=== PATIENT | female | born 1950 | race Caucasian/White ===

== ENCOUNTER 2017-09-25 15:55 | Inpatient (IN) | payer MEDICARE, OTHER ==
[~2017-09-25] VITALS: Ht 162.6 cm; Wt 141.1 kg
[~2017-09-25 15:55] MED LIST: ALBUTEROL2.5 MG/3 M INH; HYDROCHLOROTHIA25 MG PO; LASIX20 MG PO; NAPROXEN500 MG PO; NORCO 5-325 TA1 EACH PO
[2017-09-25] MEDS ORDERED: ALLOPURINOL100 MG PO (16:26)
[2017-09-25] MEDS ORDERED: AMLODIPINE BESY10 MG PO (16:28)
--- NOTE | 2017-09-25 21:09 | NUR ---
PATIENT ARRIVED VIA STRETCHER AT 2019. PATIENTS STANDING WEIGHT TAKEN AND RECORDED. PATIENTS ADMISSION COMPLETED. ORIENTED TO FLOOR AND ROOM. ALL QUESTIONS ANSWERED. NO NEEDS NOTED. CALL LIGHT IN REACH .RT IN THE ROOM.
--- NOTE | 2017-09-25 21:52 | NUR ---
NDIAYE PLACED PER ORDER. PATIENT TOLERATED WELL. PATIENT GIVEN EVENING MEDICAITONS PER ORDER. PATIENT GIVEN SANDWICH BOX. NO FURTHER NEEDS NOTED. CALL LIGHT IN REACH.
--- NOTE | 2017-09-25 22:30 | NUR ---
PATIENT ASSESSMENT COMPLETED. PATIENT IS AAOX3. TOLERATING 10L OXI MASK AT 93% O2 SAT. PATIENT BREATHING IS LABORED, SHALLOW, AND GRUNTING WHEN TALKING OR MOVING. HOB ELEVATED. LUNGS CLEAR IN UPPER LOBES BILATERALLY. DIMINISHED CRACKLES HEARD IN ZEINA LOWER LOBES. TELE #9, HEART SOUNDS REGULAR AND DISTANT. ABD SOFT, NONTENDER. NO N/V. LAST BM THIS AM. NDIAYE CATH PLACED ON ADMISSION. PATIENT INCONTINENT AT BASELINE. AWARE OF NEED TO VOID BUT UNABLE TO CONTROL HER BLADDER. REDDNESS NOTED IN BETEEN THIGHS AND UNDER PANIS. NYSTATIN ORDERED, NOT YET AVAILABLE. AREAS CLEANED WELL. PATIENT REPORTS PAIN ON HER BOTTOM, BUTTOCK IS BLUEISH IN AREA BUT BLANCHABLE. NO OPEN SKIN. BARRIER CREAM APPLIED. HIPS FLOATED ON TWO PILLOWS RELIEVES PAIN FROM PRESSURE. SKIN IS DRY AND SCALING ON ALL EXTREMITIES, WORSE ON LOWER. SOME PLAQUE NOTED ON ZEINA LOWER. SKIN GROOSLY INTACT. 2+ EDEMA NOTED IN LOWER EXTREMITIES. PATIENT IS ABLE TO MOVE HERSELF IN BED WITH SOME DIFFICULTY DUE TO SIZE. ORIENTED TO ROOM AND PLAN OF CARE. PATIENT ADMITS TO BEING NONCOMPLIANT WITH DR. MOLINA AND STATES SHE WILL LIKEY NOT FOLLOW INSTRUCTIONS FOR NEW DIAGNOSIS EITHER. SHE STATES "I JUST DON'T CARE ABOUT ANYTHING". DENIES BEING DEPRESSED. LIMITED HER INTERATION OF STAFF AND RESIDENTS AT HER ASSISTED LIVING HOME. HAS A PUPPY THAT SHE IS CONCERNED FOR WHILE SHE IS HERE. DENIES OTHER NEEDS AT THIS TIME. REGULARLY STAYS UP LATE AND WILL CALL WHEN READY TO WEAR THE CPAP.
--- NOTE | 2017-09-26 00:31 | NUR ---
PATIENT UP TO BSC. LARGE BM. PATIENT ASSISTED WITH CLEANING HERSELF. RETURNED TO BED. PARTIAL BED BATH DONE. NYSTATIN APPLIED UNDER PANIS AND BETWEEN THIGHS. BARRIER CREAM TO BUTTOCK. HIPS FLOATED ON PILLOWS. 10L OXI MASK. PATIENT AGREES TO GO TO CPAP. RT CALLED. ORAL CARE DONE WITH ASSIST. PATIENT DENIES OTHER NEEDS. CALL LIGHT IN REACH.
--- NOTE | 2017-09-26 00:36 | NUR ---
HELPED PT GET TO THE BSC AND BACK TO BED. PUT BARRIER CREAM ON. CHANGED HER BEDDING INCONTINENT OF STOOL. BEDSIDE TABLE AND CALL LIGHT WITHIN REACH.
--- NOTE | 2017-09-26 01:00 | NUR ---
RT PLACED PATIENT ON CPAP. CONTINUOUS PULSE OX IN USE. CALL LIGHT IN REACH.
--- NOTE | 2017-09-26 03:07 | NUR ---
VITALS AND I&OS DONE AND CHARTED. HELPED PT TO THE BSC AND BACK TO BED. BEDSIDE TABLE AND CALL LIGHT WITHIN REACH.
--- NOTE | 2017-09-26 03:15 | NUR ---
PATIENT RESTING IN BED. EYES CLOSED. RR 20. O2 SAT 94% ON THE CPAP. HOB ELEVATED. CALL LIGHT IN REACH.
--- NOTE | 2017-09-26 06:05 | NUR ---
VITALS AND I&OS DONE AND CHARTED. BEDSIDE TABLE AND CALL LIGHT WITHIN REACH. PT NEEDS NOTHING ELSE AT THIS TIME.
--- NOTE | 2017-09-26 06:34 | NUR ---
standing weight done and charted per request from thea reynoso. helped pt to the bsc .
--- NOTE | 2017-09-26 06:39 | NUR ---
PATIENT RESTED WELL AFTER THE MIDNIGHT HOUR. ORIENTED X4. 9L OXI-MASK WHILE AWAKE, BIPAP W/5L BLEED IN WHILE SLEEPING. CONTINUOUS PULSE OX. LUNGS ARE CLEAR IN UPPER LOBES, DIMINISHED IN BASES. NDIAYE IN PLACE, OUTPUT INCREASED AFTER IV LASIX. LARGE BM LAST NIGHT. SBA TO BSC. NYSTATIN TO PANIS & THIGHS, BARRIER CREAM TO BUTTOCKS. HIPS FLOATED ON PILLOWS TO RELIEVE PRESSURE. IV SL. STANDING WT DONE THIS AM.
--- NOTE | 2017-09-26 06:55 | EKG ---
[facility] [address] [place] [address] Signed Normal sinus rhythm Low voltage QRS Left posterior fascicular block Abnormal ECG No previous ECGs available Confirmed by SIOBHAN MORRISON MD ([id number]) on 09/26/2017 6:55:08 AM Electronically Signed By: SIOBHAN MORRISON MD 09/26/17 0655 PATIENT NAME: CALDERONBERYL Moore I Electrocardiogram DATE OF : 48 PHYSICIAN: SIOBHAN MORRISON MD REPORT #: [id number] REPORT IS CONFIDENTIAL AND NOT TO BE RELEASED WITHOUT AUTHORIZATION
--- NOTE | 2017-09-26 06:58 | NUR ---
MAG CRAMER STARTED. EDUCATION PROVIDED TO THE PATIENT. SHE VERBILIZED HER LACK OF UNDERSTANDING BUT AGREES TO TREATMENT. SHE STATES "I'M JUST SIMPLE MINDED, YOU KNOW THE MEDICAL STUFF". WILL CONTINUE TO EDUCATE. PATIENT ORDERED BREAKFAST. TOLERATING 5L OXI-MASK AT 92%, GRUNTING WITH EACH BREATH. PATIENT DENIES FEELING SOB. NO OTHER NEEDS AT THIS TIME.
--- NOTE | 2017-09-26 08:00 | NUR ---
RECEIVED REPORT AT 0700, FOUND PT IN BED AWAKE. PT HAD NO NEEDS AT THAT TIME.
--- NOTE | 2017-09-26 09:05 | NUR ---
I changed pt's bed linens while RODERICK Boyle showered pt.
--- NOTE | 2017-09-26 10:00 | NUR ---
PT IS SLEEPING AT THIS TIME.
--- NOTE | 2017-09-26 11:00 | NUR ---
PATIENT UP TO SHOWER WITH FWW STANDBY ASSIST. PATIENT HAD NO COMPLAINTS ABOUT BEING DIZZY NOR SHORT OF BREATH. PATIENT UP TO CHAIR STATES THAT SHE FEELS GOOD. WARM BLANKET GIVEN CALL BUTTON IN REACH. NO OTHER NEEDS AT THIS TIME.
--- NOTE | 2017-09-26 11:08 | NUR ---
[facility]U CALLED AT 1106 FOR 5 BEATS OF V-TACH. V/S WERE TAKEN. V/S WERE WDL OVERALL. PT DENIED ANY CHEST PAIN OR ANY OTHER DISCOMFORT. WILL CONTINUE TO MONITOR. MD MORRISON IS AWARE.
--- NOTE | 2017-09-26 11:10 | NUR ---
[facility]U called to inform us that pt had a episode of vtach, nurse Bessy and I went to pt's room. I took vitals and Bessy assessed the pt, who was resting safely in bed and stated she felt fine and had no shortness of breath or chest pain. vitals charted
--- NOTE | 2017-09-26 12:00 | NUR ---
PT IS RESTING IN BED WATCHING TV. PT HAS NO NEEDS AT THIS TIME.
--- NOTE | 2017-09-26 14:00 | NUR ---
PT AT THIS TIME IS STILL NAUSEADED. MD MORRISON TO WRITE ANOTHER ORDER FOR ANT-EMETIC. SUPP WAS GIVEN. PT IS REFUSING TO EAT AT THIS TIME WHICH IS OK WITH ME SINCE PT CAN'T REMEMBER THE LAST TIME SHE PASSED FLATUS. ABD SOUNDS ARE HYPOACTIVE AT THIS TIME. WILL CONTINUE TO MONITOR.
--- NOTE | 2017-09-26 14:00 | NUR ---
PT LOST BOTH IV'S AND NEW ACCESS IS NEEDED. PT OVERALL IS FEELING FINE STATED BY HER. NO NEW ISSUES NOTED SO FAR.
--- NOTE | 2017-09-26 14:31 | NUR ---
PATIENT SITTING UP IN BEDSIDE RECLINER. PATIENT CALLED, IV IN RIGHT ARM APPEARED TO BE BUBBLING UNDER THE SKIN, RN NOTIFIED, RN IN ROOM. CALL LIGHT IN REACH. NO OTHER NEEDS AT THIS TIME.
[2017-09-26] MEDS ORDERED: CALCIUM600 MG PO (15:01)
[2017-09-26] MEDS ORDERED: FERROUS FUMARA324 MG PO (15:04)
[2017-09-26] MEDS ORDERED: VITAMIN B-12100 MCG PO (15:05)
[2017-09-26] MEDS ORDERED: VITAMIN D1000 UNIT PO (15:05)
[2017-09-26] MEDS ORDERED: NORCO 5-325 TA1 EACH PO (15:06)
[2017-09-26] MEDS ORDERED: NYSTOP60 GM TOP (15:07)
--- NOTE | 2017-09-26 15:56 | NUR ---
PT AT THIS TIME IS UP IN CHAIR WATCHING TV. PT HAS NO NEEDS AT THIS TIME.
--- NOTE | 2017-09-26 17:15 | NUR ---
Certified Heart Failure Nurse Notes: Diagnosis: acute on chronic diastolic heart failure BNP 47. Cr1.13. Echocardiogram pending. PCP: Dr. Orellana Admit Wt.: 150.14 kg Social support system:Son and daughter live in [place]. Patient wishes to move to that area. Patient lives at [facility] where medications are managed. Weight monitoring: Scale available for use at care facility Identifies how to weigh daily/ identifies when to notify PCP with teach back. Symptom management: Specific written recommendations to follow-up for ongoing management, and to address changes in weight or symptoms Diet: Has fresh fruit in her home. Does eat fast food but not pizza. Enjoys potatoe chips. Instructed on reason to cut back on foods with hidden salt and strategies identified. Usual physical activity:Limited. Educated on the benefits of physical activity. She verbalized need for pain pills in order to move, assisted risks and little bit of narcotics reinforced. Medication routine: Per facility Has been counseled on minimizing/avoiding use of NSAIDs Advanced directive: Pt is a DNR and she believes she has filled out an Advanced Directive in the past. Recommended prior to dischareg: Documented ambulation oxygen saturations prior to discharge Absence of orthostatic hypotension. Ensure follow up appointment within 7 days of discharge. Barriers to self-care include: Immobility and activity avoidance. Follow-up plans: Will call patient post discharge to reinforce self- care needs.
--- NOTE | 2017-09-26 17:52 | NUR ---
pt is sitting up in chair with feet elevated and call light in reach. pt asked for grape juice
--- NOTE | 2017-09-26 18:00 | NUR ---
PT OVERALL HAD AN UNEVENTFUL DAY. V/S OVERALL WERE WDL, PT HAS LOST SOME WEIGHT SINCE THIS MORNING. BILATERAL LEG EDEMA IS UNCHANGED. ALL LOBES ARE CLEAR BUT VERY DIMINISHED. PT IS STILL ON 9L OXY MASK OR 11L O2 ON NS WHEN EATING. NO NEW CONCERNS NOTED DURING THIS SHIFT.
--- NOTE | 2017-09-26 19:45 | NUR ---
BACK TO BED FROM CHAIR, TOLERATED WELL. O2 9L OXYMASK, NO C/O PAIN.
--- NOTE | 2017-09-26 21:37 | NUR ---
VITALS AND I&OS DONE AND CHARTED. GRAPE JUICE GIVEN PER REQUEST OF PT. BEDSIDE TABLE AND CALL LIGHT IN REACH.
--- NOTE | 2017-09-26 22:26 | NUR ---
COOP WITH ASSESSMENT, NO C/O PAIN
--- NOTE | 2017-09-27 00:20 | NUR ---
PATIENT RESTING QUIETLY SUPINE ON CPAP AT THIS TIME. RESPIRATION WNL FOR PATIENT ON CPAP. PATIENT'S EYES CLOSED AND CALL LIGHT IN REACH.
--- NOTE | 2017-09-27 02:10 | NUR ---
PATIENT CONTINUES RESTING QUIETLY ON CPAP WITH EYES CLOSED. RESPIRATIONS WNL FOR PATIENT ON CPAP. PATIENT ON HER RIGHT SIDE. CALL LIGHT IS IN REACH.
--- NOTE | 2017-09-27 03:46 | NUR ---
PATIENT CALLED AND REQUESTED TO COME OFF HER CPAP MACHINE AND BE PLACED BACK ON HER OXYMASK AT 9L/MIN. THIS WAS DONE AND RT JOHNNIE WAS INFORMED. PATIENT O2 SAT ON CONTINOUS PULSE OX 91%.
--- NOTE | 2017-09-27 06:32 | NUR ---
VITALS AND I&OS DONE AND CHARTED. D.W. DONE AND CHARTED WELL. CALL LIGHT WITHIN REACH.
--- NOTE | 2017-09-27 06:50 | NUR ---
PATIENT HAS BEEN RESTING QUIETLY MOST OF THE SHIFT SINCE I RECEIVED REPORT AT 0000 FROM KARY SPAIN. PATIENT USED HER CPAP UNTIL ALMOST 4AM WHEN SHE WENT BACK ONTO HER 9L/OXYMASK. PATIENT REMAINS ON CONTINOUS PULSE OX SATING 90-91%. PATIENT HAS HAD NO C/O PAIN. NDIAYE CATHETER DRAINING WELL. REPORT GIVEN TO KARY CHOUDHURY. PATIENT'S CALL LIGHT IS IN REACH.
--- NOTE | 2017-09-27 08:00 | NUR ---
RECEIVED REPORT AT 0700, FOUND PT IN BED SLEEPING. PT WAS ON C-PAP.
--- NOTE | 2017-09-27 09:44 | NUR ---
PATIENT RESTING IN BED, RN IN ROOM. RN STATES SHE TOOK AND RECORDED VITALS. CALL LIGHT IN REACH. NO OTHER NEEDS AT THIS TIME.
--- NOTE | 2017-09-27 10:00 | NUR ---
PT IS BACK ON OXY MASK, I HAD TO LEAVE HER ON 11L O2 VS. 9L O2 DONE YESTERDAY. PT O2 SATS ARE 88-90%. PT HAS ALSO BEEN RE-POSITIONED TO AID IN BREATHING. ALL LOBES ARE VERY DIMINISHED BUT CLEAR. OTHERWISE THERE HAS BEEN NO CHANGE IS CONDITION FOR THIS PT.
--- NOTE | 2017-09-27 10:59 | NUR ---
PATIENT LAYING IN BED WITH BIPAP ON. I BROUGHT HER A LIST OF LOW-SODIUM SNACKS. I SHOWED HER A PACKAGE OF HINT OF SALT WHEAT THINS AND HINT OF SALT TRISCUITS. SHE DOESN'T LIKE TRISCUITS. DOES LIKE WHEAT THINS BUT SHE CAN'T EAT THEM WITHOUT HER TEETH. I RECOMMENDED THESE INSTEAD OF CHIPS OR OTHER SALTY SNACKS. DIDN'T TALK MORE BECAUSE OF THE BIPAP. WILL CONTINUE TO FOLLOW.
--- NOTE | 2017-09-27 12:00 | NUR ---
PT AT THIS TIME IS BACK ON BI-PAP AT THIS TIME. PT WAS UNABLE TO MAINTAIN O2 SATS >92% ON 9L OXY MASK. MD MORRISON IS AWARE. WILL CONTINUE TO MONITOR.
--- NOTE | 2017-09-27 13:12 | NUR ---
SPOKE WITH PATIENT REGARDING DISCHARGE. DISCUSSED SHE MIGHT NEED REHAB TIME BEFORE RETURNING TO [facility]. SHE STATES SHE DOESN'T WANT TO GO ANYWHERE BUT HOME BECAUSE SHE IS WORRIED ABOUT HER DOG WHO IS 13 AND BLIND. I TOLD HER I WILL CALL FACILITY AND CHECK ON HER DOG. I CALLED [facility] [phone] AND SPOKE WITH NEYDA. SHE STATES THE STAFF IS TAKING CARE OF HER DOG AND THAT SHE IS COMING TO THE HOSPITAL IN ABOUT AN HOUR TO BRING PATIENTS CELL PHONE. I ASKED IF THERE WAS A WAY TO BRING HER DOG TO VISIT AND SHE WAS GLAD TO DO THAT. I INFORMED THE STAFF. UPDATED THE PATIENT AND SHE WAS VERY HAPPY.
--- NOTE | 2017-09-27 13:50 | NUR ---
PATIENT HAD A VISIT BY YANCY CRAFT AND WAS ABLE TO SEE AND PET HER DOG. SHE WAS VERY EMOTIONAL BUT SO GLAD TO SEE HER DOG WAS DOING OK.
--- NOTE | 2017-09-27 13:56 | NUR ---
PATIENT'S NDIAYE CLASP CAME LOOSE CAUSING NDIAYE TO LEAK ONTO FLOOR, MARKED UNMEASURED VOID.
--- NOTE | 2017-09-27 14:00 | NUR ---
PT WAS ABLE TO SEE HER DOG. THIS MADE HER VERY HAPPY. RT AT THIS TIME IS SWITCHING PT OVER TO VAPOTHERM. ALL LOBES ARE STILL VERY DIMM BUT CLEAR. NO NEW CONCERNS AT THIS TIME. OTHERWISE NO CHANGES NOTED SO FAR.
--- NOTE | 2017-09-27 15:44 | NUR ---
PATIENT RESTING IN BED, CALL LIGHT IN REACH. NO OTHER NEEDS AT THIS TIME.
--- NOTE | 2017-09-27 15:59 | NUR ---
CLINICALS FAXED TO [facility] FOR POSSIBLE REHAB STAY AT DISCHARGE. SPOKE WITH DANIELE PUMP AND STILL OPERATOR. FAX CONFIRMATION RECEIVED.
--- NOTE | 2017-09-27 16:00 | NUR ---
PT IS RESTING IN BE AT THIS TIME. PT HAS NO NEEDS. PT SEEMS IN GOOD SPIRITS SINCE HER DOG VISITED HER.
--- NOTE | 2017-09-27 17:15 | NUR ---
AT START OF SHIFT PT WAS UNABLE TO MAINTAIN O2 SATS >90% ON OXY MASK. PT WAS PUT ON BI-PAP AND THEN SWITCHED OVER TO VAPOTHERM AT 35L 50%. PT IS DOING BETTER AT THIS TIME. NEW IV SITE WAS STARTED. URINE OUTPUT IS ADEQUATE. V/S WERE WDL. ALL LOBES HAVE REMIANED VERY DIMINISHED. NO NEW CONCERNS NOTED AT THIS TIME.
--- NOTE | 2017-09-27 18:24 | NUR ---
PATIENT SITTING UP IN BEDSIDE RECLINER, CALL LIGHT IN REACH, ORAL CARE PERFORMED. NO OTHER NEEDS AT THIS TIME.
--- NOTE | 2017-09-27 18:26 | NUR ---
PATIENT RESTING IN BED, CALL LIGHT IN REACH. RN NOTIFIED OF LOW OXYGEN LEVELS. NO OTHER NEEDS AT THIS TIME.
--- NOTE | 2017-09-27 19:00 | NUR ---
PATIENT RESTING IN BED WATCHING TV. GETTING REPORT FROM KARY CHOUDHURY. PATIENT SATING 91% ON VAPOTHERM CANNULA AND HAS NO CURRENT NEEDS AT THIS TIME. CALL LIGHT IN REACH.
--- NOTE | 2017-09-27 21:00 | NUR ---
PATIENT IN BED WATCHING TV AND REMAINS ON 35L/VAPOTHERM AT 50% SATING 89-91%. PATIENT'S LUNGS SOUND CLEAR, BUT DEMINISHED. NYSTATIN POWDER APPLIED TO GROIN AREA, UNDER PANIS, AND BENEATH BREASTS. BOWEL TONES ARE ACTIVE. PATIENT TAKING PO FLUIDS WELL. ALL PM MEDS GIVEN. NDIAYE DRAINING CLEAR YELLOW URINE. CALL LIGHT IN REACH.
--- NOTE | 2017-09-27 21:12 | NUR ---
charge nurse rounding note: In bed, Vaportem in place 50% O2, tolerating well. No c/o pain or sob. fluids and call light within hands reach
--- NOTE | 2017-09-27 23:10 | NUR ---
PATIENT RESTING NOW, EYES CLOSED, AND PATIENT ON BIPAP RATE OF 15 AND FIO2 OF 40%. PATIENT'S CALL LIGHT IN REACH.
--- NOTE | 2017-09-28 01:40 | NUR ---
PATIENT'S O2 SATS DROPPING TO 84%. PATIENT PULLED UP IN BED, REPOSITION AND BIPAP READJUSTED. SATS RETURNED TO 91-92%. PATIENT IS COMFORTABLE AT THIS TIME. CALL LIGHT IN REACH.
--- NOTE | 2017-09-28 03:54 | NUR ---
PATIENT'S O2 SAT DECREASING TO 86%. RT CALLED AND FIO2 INCREASED TO 50%. PATIENT RESTING QUIETLY, EYES CLOSED, BIPAP RATE STILL 15 AND O2 SATS NOW 93%. CALL LIGHT IN REACH.
--- NOTE | 2017-09-28 06:44 | NUR ---
PATIENT HAS RESTED BETTER TONIGHT THAN LAST NIGHT. PATIENT REMAINS ON BIPAP 15 ON 50% FIO2 WITH SATS AT 89-93%. LUNGS STILL CLEAR BUT VERY DEMINISHED. PATIENT HAS WANTED TO KEEP RESTING SO AM WEIGHT HAS NOT BEEN TAKEN YET. IV IS STILL PATENT AND FLUSHES WELL. NDIAYE DRAINING CLEAR YELLOW URINE. CALL LIGHT IS IN REACH.
--- NOTE | 2017-09-28 07:20 | NUR ---
REPORT RC'D FROM IMPORTER EXPORTER NURSE. PT RESTING IN BED AND BEING ASSESSED BY RT AT THIS TIME. NO ACUTE DISTRESS NOTED. PT REQUSTING JUICE, GIVEN.
--- NOTE | 2017-09-28 08:30 | NUR ---
ERIN LIGHT ANSWERED. PT REQUESTING TO MOVE TO CHAIR. PT SBA WITH FWW TO CHIAR. CONTINUOUS PULSE OX, 93%, VAPOTHERM AT 35 LPM AND 50% O2, RR 22/MIN, EXPIRATORY WHEEZE NOTED IN BUL AND CRACKLES INI BLL. OCCANSIONAL NON PRODUCTIVE COUGH NOTED. DENIES PAIN. DENIES NAUSEA. NDIAYE CATH IN PLACE AND DRAINING YELLOW URINE. PT ON TELE #9 AND IN SINUS RHYTHM. GENERALZIED EDEMA NOTED IN UPPER AND LOWER EXTREMITIES. PT POSITIONED FOR COMFORT. CALL LIGHT WITHIN REACH. BREAKFAST AT BEDSIDE.
--- NOTE | 2017-09-28 08:40 | NUR ---
PT SBA WITH FWW TO BSC. MEDIUM BOWEL MOVEMENT. PT ASSISTED WITH MINDA CARE. PT ASSISTED BACK TO CHAIR. CALL LIGHT WITHIN REACH. DENIES OTHER NEEDS AT THIS TIME.
--- NOTE | 2017-09-28 09:31 | NUR ---
pt is sitting up in chair with feet elevated and call light in reach. pt did not need anything at the moment
--- NOTE | 2017-09-28 11:46 | NUR ---
PT RESTING IN CHAIR AND EATING LUNCH. PT CURRENTLY ON 8L NC AND SPO2 93% CURRENTLY. NO ACUTE CHANGES. PT REQUESTING JUICE, CURRENT 1500 ML FLUID RESTRICTION. PT OFFERED WATER, DECLINED, PT STATES "I DON'T DRINK WATER AND I DON'T LIKE IT." EDUCATION PROVIDED ON WATER OVER JUICE, PT VERBALIZED UNDERSTANDING BUT DECLINES WATER. 100 ML JUICE GIVEN. DENIES OTHER NEEDS AT THIS TIME. CALL LIGHT WITHIN REACH.
--- NOTE | 2017-09-28 12:00 | NUR ---
PT ON 8L OXYMASK, O2 SATS 96%. PT PLACED ON 6L NC FOR LUNCH, CONTINUOUS PULSE OX IN PLACE. PT SITTING IN CHAIR FOR LUNCH. PT DENIES OTHER NEEDS AT THIS TIME.
--- NOTE | 2017-09-28 13:20 | NUR ---
PT RESTING IN CHAIR. NO ACUTE CHANGES. CALL LIGHT WITHIN REACH.
--- NOTE | 2017-09-28 13:56 | NUR ---
assisted patient back to bed. belongings within reach. call light within reach. tolerated well SBA with FWW.
--- NOTE | 2017-09-28 14:00 | NUR ---
PT RESTING IN BED WITH 6L OXYMASK. PT REPOSITIONED FOR COMFORT. 40 MG IV LASIX GIVEN, URINE IN CONCENTRATED. PT OFFERED WATER FOR 300 ML FREE WATER, REFUSED, EDUCATION PROVIDED, PT DECLINED AND REQUESTED GRAPE JUICE. NO ACUTE CHANGES. CALL LIGHT WITHIN REACH.
--- NOTE | 2017-09-28 14:33 | NUR ---
pt is resting in bed with call light in reach. pt asked for more grape juice
--- NOTE | 2017-09-28 16:40 | NUR ---
CALL LIGHT ANSWERED. PT REQUESTING TO HAVE OXYMASK SWITCH TO NC FOR DINNER. NC AT 6L APPLIED, SPO2 92% AT THIS TIME. DENIES OTHER NEEDS. CALL LIGHT WITHIN REACH.
--- NOTE | 2017-09-28 18:14 | NUR ---
PT WEANED FROM VEPOTHERM TO 6L NC/OXYMASK, TOLERATING WELL, OXYGEN SATURATION GREATER THAN 90%, CONTINUOUS PULSE OX. LUNGS CLEAR IN BUL WITH CRACKLES TO BLL. A&O X3 AND RESPONDING APPROPRIATELY. PT ON REGULAR DIET WITH 1500 ML FLUID RESTRICTION. PT REFUSES TO DRINK WATER, GRAPE JUICE GIVEN. NDIAYE CATH IN PLACE AND DRAINING CONCENTRATED URINE. SHOWER GIVEN, MINDA CARE COMPLETED, NYSTATIN POWER APPLIED. REDNESS TO BILATERAL INFRAMAMMARY. REDNESS TO INNER THIGHS/GROIN IMPROVING. PT UP IN CHAIR FOR MEALS. 1 SB WITH FWW. TELE DC'D.
--- NOTE | 2017-09-28 19:38 | NUR ---
PATIENT RESTING QUIETLY EYES CLOSED, RESPIRATIONS EVEN AND REGULAR, O2 SAT=91% ON OXY MASK OF 6L/MIN. REPORT RECEIVED FROM KARY RM. PATIENT'S CALL LIGHT IS IN REACH.
--- NOTE | 2017-09-28 22:40 | NUR ---
PATIENT IS BACK IN BED AND AND READY FOR HER BIPAP TO GO ON. RT CALLED AND IS COMING TO FIT THE MASK TO PATIENT.
--- NOTE | 2017-09-28 23:27 | NUR ---
PATIENT RESTING QUIETLY ON BIPAP MACHINE ON HER RIGHT SIDE. SATS=91-92%. PATIENT'S EYES ARE CLOSED AND PULSE IS 90 ON PULSE OX. CALL LIGHT IN REACH.
--- NOTE | 2017-09-29 00:53 | NUR ---
PATIENT RESTING QUIETLY SUPINE, EYES CLOSED, RESPIRATIONS EVEN AND REGULAR ON BIPAP, SATS 90-91% WITH A HEART RATE OF 86. PATIENT'S CALL LIGHT IS IN REACH.
--- NOTE | 2017-09-29 01:30 | NUR ---
PATIENT CONTINUES TO REST QUIETLY ON HER BIPAP WITH SATS OF 90-91%. RESPIRATIONS REGUALR AND EVEN, EYES CLOSED, CALL LIGHT IN REACH.
--- NOTE | 2017-09-29 02:42 | NUR ---
PATIENT HAS COMPLETED HER ORAL FLUID INTAKE FOR THE DAY AND WILL RESTART HER 24HRS AT 6AM. PATIENT IS RESTING QUIETLY SUPINE IN HER BED. PATIENT'S EYES ARE CLOSED AND RESPIRATIONS ARE EVEN AND REGULAR ON BIBAP AND SATS=89-90% WITH A PULSE OF 90. PATIENT'S CALL LIGHT IS WITHIN REACH.
--- NOTE | 2017-09-29 03:04 | NUR ---
PATIENT JUST CALLED FOR A WARM BLANKET WHICH WAS GIVEN TO HER BY ELOY. PATIENT'S LUNGS REMAIN CLEAR, BUT VERY DEMINISHED. BOWEL TONES ARE ACTIVE. PATIENT HAS NO C/O PAIN AT THIS TIME AND WISHING TO GO BACK TO SLEEP. PATIENT REMAINS ON BIPAP AND HER CALL LIGHT IS IN REACH. CURRENT O2 SAT WHILE AWAKE IS 94%.
--- NOTE | 2017-09-29 03:18 | NUR ---
PATIENT ASKED FOR WARM BLANKET. GIVEN.
--- NOTE | 2017-09-29 05:00 | NUR ---
PATIENT RESTING QUIETLY ON HER RIGHT SIDE, EYES CLOSED, RESPIRATIONS EVEN AND REGULAR, BIPAP IN PLACE AT 40%, O2 SATS 89-91% WITH A HEART RATE OF 90. PATIENT'S CALL LIGHT IS IN REACH.
--- NOTE | 2017-09-29 06:10 | NUR ---
PATIENT HAS SLEPT WELL MOST OF THE NIGHT THE BIPAP MACHINE, BUT IS NOW UP WATCHING TV BACK ON HER 6L/OXYMASK SATING 94%. PATIENT'S LUNGS STILL REMAIN EXTREMELY DEMINISHED THROUGHOUT HER LUNG NARVAEZ, BUT CLEAR. PATIENT HAS NO C/O PAIN AT THIS TIME, BUT DID GET TYLENOL BEFORE BED FOR ARTHRITIS PAIN, WHICH HELPED. IV REMAINS PATENT AND FLUSHES WELL. BOWEL TONES ACTIVE AND PATIENT PASSING GAS. AM LABS JUST DRAWN AND NDIAYE EMPTIED. PATIENT STILL HAVING QUANTITY SUFFICIENT URINE OUTPUT. PATIENT IS CURRENTLY ON THE BEDSIDE COMMODE TRYING TO HAVE A BM. CALL LIGHT IN REACH. PATIENT READY TO START HER 1500ML FLUID RESTRICTION AGAIN FOR THE DAY.
--- NOTE | 2017-09-29 08:00 | NUR ---
PATIENT SITTING UP IN BED, RESPIRATORY THERAPY IN ROOM. PATIENT CALL LIGHT IN REACH. NO OTHER NEEDS AT THIS TIME.
--- NOTE | 2017-09-29 09:01 | NUR ---
PT IN BED SLEEPING, AWOKE EASILY TO VOICE. PT ALERT AND ORIENTED. DENIES PAIN, NAUSEA, SOB, OR DIFFICULTY BREATHING. DENIES HAVING ANY QUESTIONS OR CONCERNS AT THIS TIME. NDIAYE PATENT PUTTING OUT CLEAR YELLOW URINE. PT SATTING 90% ON 6LNC. ATE 100% OF BREAKFAST. CALL LIGHT WITHIN REACH.
--- NOTE | 2017-09-29 10:17 | NUR ---
PATIENTS VITAL SIGNS WERE ALREADY DONE BY NURSE, I PUT IN INTAKE AND OUTPUT, MADE BED SHE ASKED ABOUT NOT HAVING HER O2 SENSOR ON HER FOREHEAD ANYMORE WILL TALK TO NURSE ABOUT IT.
--- NOTE | 2017-09-29 11:20 | NUR ---
PT 1PA TO RECLINER TO EAT LUNCH. SENTHIL ANDINO. CALL LIGHT WITHIN REACH.
--- NOTE | 2017-09-29 13:15 | NUR ---
PT REQUESTED TO GET BACK TO BED FROM CHAIR. SBA WITH WALKER. PT WEANED TO 4L NC, SATTING 92%. PT DENIES FURTHER NEEDS OR CONCERNS. CALL LIGHT WITHIN REACH.
--- NOTE | 2017-09-29 15:00 | NUR ---
PT SBA WITH WALKER TO RESTROOM. HAD BM. AMB BACK TO BED. PT MAINTAINING SATS 90-92% ON 4LNC. CALL LIGHT WITHIN REACH.
--- NOTE | 2017-09-29 19:10 | NUR ---
REC REPORT FROM DAY RN. PT ON BED WATCHING TV. NO NEEDS AT THIS TIME.
--- NOTE | 2017-09-29 21:40 | NUR ---
PT ASSESSMENT COMPLETED, ASSISTED UP TO THE BATHROOM, HAD A SMALL BM, TOLERATED GOOD, SLOW AMBULATION WITH FWW. ASSISTED BACK TO BED, PT PUT HER OWN FEET INTO BED, O2 AT 4L SAT IN LOW 90'S. CLEANED UNDER PANNUS, AND BREASTS. PT LIVES AT [facility] AND STATES SHE WILL HAVE STAFF HELP HER CLEAN HER FOLDS, AND PUT THE "POWDER" SHE HAS AT HOME. DID NOT WANT THE BIPAP ON YET, SAID SHE WOULD CALL. HAS HAD ALL THE FLUIDS SHE CAN FOR THE NIGHT, IS AWARE OF THIS. CALL LIGHT WITHIN REACH.
--- NOTE | 2017-09-29 23:00 | NUR ---
TAKING OVER CARE OF PT AT THIS TIME. PT RESTING, EYES CLOSED,
--- NOTE | 2017-09-30 01:32 | NUR ---
RESTING, BIPAP IN PLACE, CONT PULSE OX IN PLACE, NO S/SX DISTRESS, CALL LIGHT AND FLUIDS WITHIN HANDS REACH
--- NOTE | 2017-09-30 03:12 | NUR ---
Warm blanket given on requests, bipap in place, no other c/o pain or requests
--- NOTE | 2017-09-30 06:31 | NUR ---
PT CONTINUES ON 1500CC FLUID RESTRICTION. DAILY WEIGHT, DECLINES TO BE WEIGHT AT THIS TIME. "I WANT TO CONTINUE SLEEPING, YOMI NAIR STATED" PT HAS USED CPAP MACHINE ALL LIGHT, HAS SLEPT ALL NIGHT. TURNS SELF IN BED, GENERALIZED EDEMA IMPROVING. F/C PATENT, DRAINING QS DARK YELLOW URINE, NO C/O PAIN, SOB OR ANY REQUESTS
--- NOTE | 2017-09-30 08:45 | NUR ---
PT AWAKE IN ROOM SITTING UP AT EDGE OF BED EATING BREAKFAST. DENIES PAIN, NAUSEA, OR DIFFICULTY BREATHING. SATTING 91% ON 4LNC. ALERT AND ORIENTED. IV FLUSHES WELL. CALL LIGHT WITHIN REACH.
--- NOTE | 2017-09-30 08:45 | NUR ---
SPOKE WITH PATIENT IN ROOM. SHE KNOWS WE ARE PLANNING SNF AT DISCHARGE. SHE IS HOPING TO RETURN TO [facility] INSTEAD. SHE IS WORRIED ABOUT HER DOG. EXPLAINED THAT THE STAFF AT [facility] STATED THEY CAN BRING THE DOG TO VISIT HER IF SHE GOES TO REHAB. EXPLAINED ALSO THAT MEDICALLY SHE MAY NEED MORE THAN THEY CAN PROVIDE RIGHT AT DISCHARGE AND THAT WE WILL CONTACT [facility] TO SEE IF THEY WILL CONSIDER HER RETURNING AT DISCHARGE. SHE STATED UNDERSTANDING.
--- NOTE | 2017-09-30 10:05 | NUR ---
PT WALKED A SHORT DISTANCE IN HALLWAY WITH P.T. USING FWW AND 1 PERSON MINIMAL ASSIST. PT SHORT OF BREATH WITH EXERTION, SATS DROPPED TO 83% ON 3L WHILE AMB PER NURIS P.T. PT AMB BACK TO ROOM AND IS SITTING IN RECLINER. CALL LIGHT WITHIN REACH.
--- NOTE | 2017-09-30 10:20 | NUR ---
SPOKE WITH MERRILL PRESTON FROM [facility]. UPDATED HER ON PATIENTS PROGRESS AND POSSIBLE DISCHARGE TOMORROW. EXPLAINED PATIENT WOULD LIKE TO RETURN STRAIGHT TO THEIR FACILITY. SHE STATES SHE DOES NOT FEEL PATIENT IS READY OR BASELINE YET FOR THEM. SHE FEELS SHE NEEDS CLOSER MONITORING THAN THEY CAN PROVIDE AT THIS TIME. SHE STATES THEY WILL CONTINUE TO WATCH HER DOG AND ALSO BRING IT TO VISIT HER IN REHAB IF SHE DOES THIS AT [facility].
--- NOTE | 2017-09-30 11:00 | NUR ---
CARE CONFERENCE DR HAYWARD MYSELF PATIENT WAS SEEN IN REGARDS TO PROGRESS AND DISCHARGE PLAN. IT WAS DISCUSSED THAT SHE WILL NEED TO GO TO REHAB FOR CLOSER MONITORING AND STRENGTHENING ACCORDING TO RN FROM HER FACILITY YANCY MAK. THEY WERE UPDATED AND FEEL SHE IS NOT BASELINE TO RETURN YET. PATIENT ONLY WORRY WAS HER DOG. I ASSURRED HER THE FACILITY WILL CONTINUE TO LOOK AFTER HER DOG AND BRING IT TO VISIT HER AT REHAB. QUESTIONS ANSWERED.
--- NOTE | 2017-09-30 13:05 | NUR ---
PT LYING IN BED. STATES SHE ATE ALL OF HER LUNCH AND DOESNT HAVE ANY NEEDS OR CONCERNS AT THIS TIME. CALL LIGHT WITHIN REACH.
--- NOTE | 2017-09-30 15:30 | NUR ---
PT RECIEVED FULL SHOWER BY PAULINO VAUGHN. SENTHIL LAMAS'Brenden AT THIS TIME. ATTEND APPLIED PT IS INCONTINENT AT BASELINE. PT SITTING UP IN RECLINER WATCHING TV. PT SATS AT 90% ON 3LNC. CALL LIGHT WITHIN REACH.
--- NOTE | 2017-09-30 16:31 | NUR ---
UPDATED CLINICALS FAXED TO [facility] [phone]. FAX CONFIRMATION RECEIVED.
--- NOTE | 2017-09-30 17:45 | NUR ---
PT 1PA WITH WALKER TO RESTROOM, VOIDED WITHOUT DIFFICULTY, HAD SMALL BM. PT REQUESTED TO GET IN BED AFTER SITTING IN CHAIR MOST OF SHIFT. ATE ALL OF DINNER PREVIOUSLY. SATTING 91% ON 3LNC. CALL LIGHT WITHIN REACH.
--- NOTE | 2017-09-30 19:53 | NUR ---
RECEIVED REPORT FROM KAYLYNN ESPINO RN. PATIENT IS RESTING IN BED. PATIENT DENIES ANY NEEDS AT THIS TIME. CALL LIGHT IN REACH.
--- NOTE | 2017-09-30 22:00 | NUR ---
PATIENT ASSESMENT COMPLETED. PATIENTS EVENING MEDICATIONS GIVEN PER ORDER. PATIENT IS ON 3L VIA NC. PATIENT GIVEN 200ML OF JUICE. PATIENT EDUCATED ON FLUID RESTRICTION. PATIENT VERBALIZES UNDERSTANDING. PATIENT DENIES ANY NEEDS AT THIS TIME. CALL LIGHT IN REACH.
--- NOTE | 2017-09-30 22:35 | NUR ---
WAREHOUSE ORDER FILLER IN ROOM. PATIENT PLACED ON BIPAP.
--- NOTE | 2017-09-30 22:39 | NUR ---
PATIENT CALLED WANTS BIPAP ON. DONE.
--- NOTE | 2017-10-01 01:11 | NUR ---
PATIENT IS RESTING IN BED BIPAP IN PLACE. BREATHING IS EVEN AND UNLABORED, RR 17. CALL LIGHT IN REACH.
--- NOTE | 2017-10-01 01:59 | NUR ---
PATIENT IS RESTING IN BED WITH EYES CLOSED. BIPAP WORN. CALL LIGHT IN REACH.
--- NOTE | 2017-10-01 03:25 | NUR ---
PATIENT IS RESTING IN BED WITH EYES CLOSED. CPAP IN PLACE. BREATHING IS EVEN AND UNLABORED. CALL LIGHT IN REACH.
--- NOTE | 2017-10-01 05:23 | NUR ---
PATIENT RESTED WELL THROUGHOUT THE SHIFT. PATIENT IS ON A CARDIAC DIET. PATIENT IS ON A 1500ML FLUID RESTRICTION. PATIENT IS WORKING WITH PT. PATIENT IS ON 3L VIA NC. PATIENT IS SL AND IV FLUSHES WELL. PAITENT WORE CPAP FROM 2229 ON. PATIENT IS INCONTINENT AT TIMES. PATIENT HAS PULSE OX IN PLACE. AAOX3. SBA W/FWW.
--- NOTE | 2017-10-01 06:47 | NUR ---
TRACTOR TRAILER TRUCK DRIVER IN ROOM. PATIENT UP TO THE RESTROOM. PATIENT WAS INCONTINENT. PATIENTS BEDDING CHANGED. PATIENTS DAILY WEIGHT TAKEN AND RECORDED. PATIENT ON 3L VIA NC. NO NEEDS NOTED. CALL LIGHT IN REACH.
--- NOTE | 2017-10-01 07:15 | NUR ---
REPORT RC'D FROM REGULATORY SUBMISSIONS ASSOCIATE NURSE. PT RESTING IN BED AT THIS TIME. NO ACUTE DISTRESS NOTED. DENIES OTHER NEEDS AT THIS TIME.
--- NOTE | 2017-10-01 08:15 | NUR ---
SULEMAN [facility] DIRECTOR OF SAFETY AND SECURITY RETURNED MY CALL. SHE STATES SHE IS WORKING WITH PATIENTS DAUGHTER YOANNA IN PLACEMENT IN THE [place] ARE[place]. SHE STATES THE DAUGHTER WAS SUPPOSED TO COME OVER THE WEEKEND TO MOVE SOME OF THE PATIENTS THINGS AND TAKE HER DOG. SHE IS UNSURE IF THIS HAPPENED. SHE STATES THE FACILITY THEY HAD HER GOING TO HAS CANCELLED TAKING HER DUE TO PATIENTS LOW SATS. WE DISCUSSED THAT SHE WAS PROBABLY ACUTELY ILL AT THE TIME OF THEIR ASSESSMENT. SULEMAN IS GOING TO CALL THEM AND UPDATE THEM ON HER STAY HERE. DISCUSSED THAT PATIENT WILL BE DISCHARGED TO REHAB AT [facility].
[2017-10-01] MEDS ORDERED: IPRAT-ALBUT 0.5-3 ML INH (09:31)
[2017-10-01] MEDS ORDERED: MAPAP500 M1 PO (09:32)
[2017-10-01] MEDS ORDERED: VOLTAREN100 GM TOP (09:32)
[2017-10-01] MEDS ORDERED: KLOR-CON 1010 MEQ PO (09:33)
[2017-10-01] MEDS ORDERED: MAG-OXIDE400 MG PO (09:35)
[2017-10-01] MEDS ORDERED: NYSTOP60 GM TOP (09:36)
--- NOTE | 2017-10-01 09:40 | NUR ---
PT RUP IN CHIAR AT THIS TIME. PT A&O X3 AND RESPONDING APPROPRIATELY. RESPIRATIONS EVEN, OCCANSIONAL GRUNTING, 3L NC, LUNGS CLEAR IN BUL AND DIMINISHED IN BLL. BOWEL TONES ACTIVE IN ALL FOUR QUADRANTS, CARDIAC DIET WITH 1500 ML FLUID RESTRICTION. LAC IV SITE PATENT, WNL, AND SALINE LOCKED. NDIAYE CATH DC'D AND PT REPORT TO BE INCONTINENT AT TIMES. NYSTATIN APPLIED TO PANNUS AT THIS TIME. CALL LIGHT WITH REACH. DENIES OTHER NEEDS AT THIS TIME. PT TO DC TO [facility] TODAY.
[2017-10-01] MEDS ORDERED: ALBUTEROL2.5 MG/3 M INH (09:41)
[2017-10-01] MEDS ORDERED: FUROSEMIDE40 MG PO (09:41)
--- NOTE | 2017-10-01 10:20 | NUR ---
PT UP IN CHAIR WATCHING TV. PT REQUESTING DC INFORMATION. ADVISED PT DC PAPERWORK COMPLETED AND WILL AWAIT ADDITIONAL INFORMATION FROM SENG HUSAIN VERBALIZED UNDERSTANDING. NO ACUTE CHANGES. DENIES OTHER NEEDS AT THIS TIME. CALL LIGHT WITHIN REACH.
--- NOTE | 2017-10-01 13:05 | NUR ---
CALL LIGHT ANSWERED, PT REQUESTING TO USE RESTROOM. PT SBA WITH FWW TO RESTROOM. SMEAR OF INCONTINENT BM NOTED. PT SBA WITH FWW FROM RESTROOM TO CHAIR, TOELRATED WELL. MEDICATION ADMINISTERED. NO ACUTE CAHNGES. DENIES OTHER NEEDS AT THIS TIME. CALL LIGHT WITHIN REACH.
== END 2017-10-01 14:00 | disposition home or self-care (01) | DRG 291 ==
LOC: ED 15:55 → MS 19:50
PROVIDERS: ADMIT Internal Medicine
DX: I11.0 Hypertensive heart disease with heart failure (principal); J96.21 Acute and chronic respiratory failure with hypoxia; Z68.43 Body mass index [BMI] 50.0-59.9, adult; I50.33 Acute on chronic diastolic (congestive) heart failure; G47.33 Obstructive sleep apnea (adult) (pediatric); E66.01 Morbid (severe) obesity due to excess calories; E79.0 Hyperuricemia without signs of inflammatory arthritis and tophaceous disease; Z66 Do not resuscitate; Z87.891 Personal history of nicotine dependence; F15.21 Other stimulant dependence, in remission; J44.9 Chronic obstructive pulmonary disease, unspecified; M19.90 Unspecified osteoarthritis, unspecified site
CPT/HCPCS: 36415; 71045; 71260; 80048; 80053; 83735; 83880; 84100; 84484; 85025; 85379; 93005; 93010; 93306; 94640; 94660; 94762; 94799; 97110; 97116; 97162; 99285; J1650; J3475; Q9967

== ENCOUNTER 2019-09-03 12:14 | Emergency (ER) | payer MEDICARE, OTHER ==
[~2019-09-03] VITALS: Ht 162.6 cm; Wt 141.1 kg
[~2019-09-03 12:14] MED LIST changes: +ALLOPURINOL100 MG PO; +AMLODIPINE BESY10 MG PO; +CALCIUM600 MG PO; +FERROUS FUMARA324 MG PO; +FUROSEMIDE40 MG PO; +IPRAT-ALBUT 0.5-3 ML INH; +KLOR-CON 1010 MEQ PO; +MAG-OXIDE400 MG PO; +MAPAP500 M1 PO; +NYSTOP60 GM TOP; +VITAMIN B-12100 MCG PO; +VITAMIN D1000 UNIT PO; +VOLTAREN100 GM TOP
== END 2019-09-03 13:43 | disposition home or self-care (01) ==
LOC: ED 12:14
DX: S90.31XA Contusion of right foot, initial encounter (principal); I10 Essential (primary) hypertension; J44.9 Chronic obstructive pulmonary disease, unspecified; Z87.891 Personal history of nicotine dependence; Z79.899 Other long term (current) drug therapy; X58.XXXA Exposure to other specified factors, initial encounter
CPT/HCPCS: 73630; 99283-25

== ENCOUNTER 2020-10-25 15:10 | Emergency (ER) | payer MEDICARE, OTHER ==
[~2020-10-25] VITALS: Ht 162.6 cm; Wt 141.1 kg
[2020-10-25] MEDS ORDERED: ALLOPURINOL300 MG PO (17:17)
[2020-10-25] MEDS ORDERED: ST. JOSEPH ASPI81 MG PO (17:18)
[2020-10-25] MEDS ORDERED: FUROSEMIDE20 MG PO (17:19)
[2020-10-25] MEDS ORDERED: FAMOTIDINE40 MG PO (17:19)
[2020-10-25] MEDS ORDERED: GLIPIZIDE5 MG PO (17:20)
[2020-10-25] MEDS ORDERED: PRAVASTATIN SOD80 MG PO (17:20)
[2020-10-25] MEDS ORDERED: LO-DOSE ASPIRIN81 MG PO (17:20)
[2020-10-25] MEDS ORDERED: LEVOTHYROXINE50 MCG PO (17:20)
[2020-10-25] MEDS ORDERED: LOTRIMIN AF12 GM TOP (19:29)
[2020-10-25] MEDS ORDERED: SULFACETAMIDE S15 ML OU (19:29)
== END 2020-10-25 19:50 | disposition home or self-care (01) ==
LOC: ED 15:10
DX: R21 Rash and other nonspecific skin eruption (principal); E66.01 Morbid (severe) obesity due to excess calories; I10 Essential (primary) hypertension; J44.9 Chronic obstructive pulmonary disease, unspecified; E11.9 Type 2 diabetes mellitus without complications; M19.90 Unspecified osteoarthritis, unspecified site; Z87.891 Personal history of nicotine dependence; Z79.899 Other long term (current) drug therapy; Z79.82 Long term (current) use of aspirin
CPT/HCPCS: 99282

== ENCOUNTER 2022-01-02 17:11 | Inpatient (IN) | payer MEDICARE, OTHER ==
[~2022-01-02] VITALS: Ht 162.6 cm; Wt 107.1 kg
[~2022-01-02 17:11] MED LIST changes: +ALLOPURINOL300 MG PO; +FAMOTIDINE40 MG PO; +FUROSEMIDE20 MG PO; +GLIPIZIDE5 MG PO; +LEVOTHYROXINE50 MCG PO; +LO-DOSE ASPIRIN81 MG PO; +LOTRIMIN AF12 GM TOP; +PRAVASTATIN SOD80 MG PO; +ST. JOSEPH ASPI81 MG PO; +SULFACETAMIDE S15 ML OU
--- NOTE | 2022-01-02 20:39 | EKG ---
[facility] [address] [place] [address] Signed Sinus tachycardia with premature atrial complexes Right bundle branch block Left anterior fascicular block Bifascicular block T wave abnormality, consider lateral ischemia Abnormal ECG When compared with ECG of 25-SEP-2017 16:51, premature atrial complexes are now present Left anterior fascicular block is now present Left posterior fascicular block is no longer present Right bundle branch block is now present Confirmed by SIOBHAN MORRISON MD ([id number]) on 01/02/2022 8:39:32 PM Electronically Signed By: SIOBHAN MORRISON MD 01/02/222038 PATIENT NAME: BERYL MANCERA I Electrocardiogram DATE OF : 48 PHYSICIAN: SIOBHAN MORRISON MD REPORT #: [id number] REPORT IS CONFIDENTIAL AND NOT TO BE RELEASED WITHOUT AUTHORIZATION
--- NOTE | 2022-01-02 23:00 | NUR ---
CBG 120, ADMISSION BLOOD SUGAR CHECK.
--- NOTE | 2022-01-02 23:15 | NUR ---
PATIENT ARRIVED TO UNIT ON GURNEY FROM ER, APPEARS AWAKE. PATIENT TRANSFERED OVER TO HOSPITAL BED WITH SLIDER SHEET. NOTED SKIN DRY WITH ERYTHEMA TO MINDA-AREA, APPEARS TO BE SECONDARY TO INCONTINENCE. PATIENT SKIN GENERALIZED DRY, WITH RAISED ROUGH PATCHES TO AREAS ON STOMACH, NECK, AND EXTREMITIES. PATIENT LUNG SOUNDS COURSE IN UPPER LOBES, DIMINISHED WITH FINE CRACKLES BASES ZEINA, 02 SAT 93% on 4L. PATIENT NOW ON FLUID RESTRICTION 1,800 ML. PATIENT CHRONICALLY ON 4L, COMES FROM [facility]. POOR HISTORIAN. PATIENT HAD ELEVATED TROPONINS IN THE ER 63.4 AND THEN 68.1, NEW RBBB NOTED ON ECG WITH OTHER NEW CHANGES FROM HISTORICAL ECGS. PATIENT BNP 6,402, ADMINISTERED 80 MG IV LASIX. UA 4 PLUS BACTERIA, STARTED ON FIRST DOSE OF ROCEPHIN UPON ARRIVAL TO UNIT, OTHERWISE SL. PUREWIC IN PLACE, SO FAR APPEARS TO BE DOING ADEQUATE AT COLLECTING URINE.
--- NOTE | 2022-01-03 00:50 | NUR ---
INTO ROOM TO CHECK ON PATIENT WHO APPEARS TO BE RESTING. URINE APPEARS TO BE SUCTIONING INTO COLLECTION CONTAINER WELL. PATIENT HR ON TELE APPEARS TO FLUCTUATING TO A SR THEN BACK INTO AFIB. MULTI PVCS NOTED. HR 80S-100S. PATIENT DENIES ANY CHEST PAIN OR SOB, REPORTS BACK HAS DULL ACHE THAT IS CHRONIC. PLACED WARM BLANKET TO BACK FOR COMFORT. REPOSITIONED PILLOW, PATIENT ON RIGHT SIDE. CALL LIGHT WITHIN REACH.
--- NOTE | 2022-01-03 01:00 | NUR ---
PATIENT INCONTINENT OF URINE, WITH PURE WICK IN PLACE. ATTEND SATURATED.
--- NOTE | 2022-01-03 01:40 | NUR ---
PATIENT SITTING UP WITH ONE LEG HANGING OUT OF BED. APPEARS ALERT AND ORIENTED AND HAS BEEN CALLING APPROPRIATLEY. CALL LIGHT WITHIN REACH. CURTAIN OPEN TO BE ABLE TO VISUALIZE FROM NURSING STATION. PROVIDED CHAPSTICK, AND DISCUSSED POC AND WHY PATIENT WAS ADMITTED. PATIENT VERBALIZED UNDERSTANDING.
--- NOTE | 2022-01-03 02:33 | NUR ---
APPLIED BARRIER CREAM TO MINDA AREA. PATIENT SELF REMOVED GOWN, VERBALIZED WILLINGNESS TO DRAPE SHEET OVER BODY WHEN SITTING UP IN BED. PATIENT REPOSITIONS SELF FROM RIGHT SIDE TO BACK.
--- NOTE | 2022-01-03 03:34 | NUR ---
PATIENT APPEARS TO BE RESTING EASY, RR 14 02 SATURATION 95% 4L NC. BREATHING EVEN AND REGULAR. OPENS EYES TO VERBAL STIMULI. VERBALIZE PURE WICK IS IN PLACE AND DOES NOT FEEL ANY DAMPNESS.
--- NOTE | 2022-01-03 05:55 | NUR ---
REPOSITIONED PATIENT IN BED, WICK IN PLACE IN FOR URINE COLLECTION. RECORDED AND EMPTIED COLLECTION CONTAINER, REPLACED WICK WITH NEW ONE. CLEANSED MINDA SKIN, APPLIED BARRIER CREAM. NOTED ATTEND LIGHTLY SATURATED WITH URINE. WICK APPEARS TO BE COLLECTING MOST OF URINE IF PATIENT KEEPS ACTIVITY TO A MINIMUM. PROVIDED NEW ATTEND. PATIENT ABLE TO ROLL BACK AND FORTH AND FOLLOW COMMANDS. APPEARS TO GO BACK TO RESTING WITH EYES CLOSED. NO OTHER NEEDS AT THIS TIME. CALL LIGHT WITHIN REACH.
--- NOTE | 2022-01-03 07:07 | NUR ---
NOTIFIED BY PHONE TROPONIN 68.5. NO NEW ORDERS. DR. MORRISON REPORTED TRENDING EXPECTED.
--- NOTE | 2022-01-03 07:34 | NUR ---
REPORT RECIEVED. PATIENT IS RESTING IN BED.
--- NOTE | 2022-01-03 08:00 | NUR ---
ASSESSMENT DONE. WILL ANSWERE QUESTIONS AND FOLLOW COMMANDS. SIPS OF WATER GIVEN. DENIES PAIN OR NAUSEA. REPOSITIONED TO BACK WITH HOB ELEVATED, READY TO TAKE BREAKFAST.
[2022-01-03] MEDS ORDERED: ALLOPURINOL100 MG PO (08:17)
[2022-01-03] MEDS ORDERED: MAPAP500 MG PO (08:36)
[2022-01-03] MEDS ORDERED: TROSPIUM CHLORI20 MG PO (08:38)
[2022-01-03] MEDS ORDERED: FLUTICASONE PRO16 GM NAS (08:42)
[2022-01-03] MEDS ORDERED: VITAMIN D21250 MCG PO (08:47)
[2022-01-03] MEDS ORDERED: LATANOPROST2.5 ML OU (08:48)
[2022-01-03] MEDS ORDERED: CLOTRIMAZOLE45 G1 TOP (08:55)
[2022-01-03] MEDS ORDERED: ARTIFICIAL TEAR15 M6 OU (08:56)
[2022-01-03] MEDS ORDERED: HYDROCORTISON28.4 G8 TOP (08:57)
[2022-01-03] MEDS ORDERED: NYSTATIN1 EAC6 TOP (08:58)
--- NOTE | 2022-01-03 09:00 | NUR ---
TOOK BREAKFAST POOR. IV ABX HUNG. PATIENT W/O C/O.
[2022-01-03] MEDS ORDERED: LOPERAMIDE2 MG PO (09:02)
--- NOTE | 2022-01-03 09:04 | NUR ---
medications reconciled using Marci Sheldon MARs and pharmacy records
--- NOTE | 2022-01-03 10:40 | NUR ---
UP TO CHAIR WITH ASSIST OF ONE STAFF. DENEIS PAIN OR SHORTNESS.
--- NOTE | 2022-01-03 12:10 | NUR ---
PT SITTING UP IN CHAIR EATING LUNCH. REQUESTED MENU AND ORDERED DINNER. PT HAVING PRODUCTIVE COUGH, AND EMITTING SOME SPUTUM. PT HAS NO OTHER REQUESTS, NEEDS AT THIS TIME. PT CONTINUES TO BE ALERT, ORIENTED. CASE MANAGEMENT HERE TO SEE PT, BUT WILL COME BACK DUE TO HER EATING LUNCH.
--- NOTE | 2022-01-03 13:08 | NUR ---
PT ATE APPROX 25% OF LUNCH. 2 PERSON ASSIST TO REPOSITION IN CHAIR. THICK, YELLOW SPUTUM NOTED IN KIDNEY BASIN. PT NOW SITTING UP WITH FEET ON THE FLOOR, CALL LIGHT WITHIN REACH. NO OTHER NEEDS AT THIS TIME.
--- NOTE | 2022-01-03 13:50 | NUR ---
Patient plans to go home to [facility].
--- NOTE | 2022-01-03 14:19 | NUR ---
PATIENT SITTING UP IN RECLINER, FRESH ICE WATER PROVIDED. URINE CANISTER EMPTIED AND CHARTED. CALL LIGHT IN EASY REACH, LEGS ELEVATED PER REQUEST. NO OTHER NEEDS AT THIS TIME
--- NOTE | 2022-01-03 15:00 | NUR ---
PATIENT BACK TO BED PER REQUEST. PATIENT ABLE TO SELF TRANSFER WITH THIS PHOTO CARTOGRAPHER CLOSE BY IF NEEDED- STAND AND PIVOT. PUREWICK IN PLACE. CALL LIGHT AND PERSONAL ITEMS IN EASY REACH.
--- NOTE | 2022-01-03 16:00 | NUR ---
ASSESSMENT DONE. PURE WICK AND ATTENDS CHANGED. MOVES WELL IN BED. DENIES PAIN. IS IN BED WATCHING TV.
--- NOTE | 2022-01-03 19:17 | NUR ---
sitting at bedside. HR 133. ASSISTED BACK TO BED. HR REMAINS HIGH. AFLUTTER 1:1. BP-118/99. AWARE.
--- NOTE | 2022-01-03 19:33 | NUR ---
called report rhythm and rate of ecg at this time
--- NOTE | 2022-01-03 19:45 | NUR ---
POST LOPRESSOR ADMINISTRATION PT HEART RATE NOW 87, THROUGHOUT, VENTRICULAR FLUTTER PT ALERT AND REPORTS NO CHEST PAIN OR NAUSEA. PT DOES REPORT MILD GAS PAIN IN LOWER ABD.
--- NOTE | 2022-01-03 23:18 | NUR ---
PT RESTING IN BED, REPOSITIONED, CHANGED OUT PUREWICK/DEPENDS/MINDA PAD, CLEANED AND APPLIED BARRIER CREAM TO BUTTOCKS, MINDA AREA. PT HAS GOOD BED MOBILITY TO ASSIST. PT HAS NO OTHER CONCERNS OR REQUESTS AT THIS TIEM, SHE IS ALERT AND ORIENTED WATCHING TV.
--- NOTE | 2022-01-04 01:25 | NUR ---
PT RESTING IN BED EYES CLOSED, SLEEPING. NO DISTRESS NOTED AT THIS TIME
--- NOTE | 2022-01-04 03:22 | NUR ---
PT RESTING IN BED, EYES CLOSED RESP RATE 20 BREATHS/MIN, NO DISTRESS NOTED.
--- NOTE | 2022-01-04 05:09 | NUR ---
PT CALLED FOR ASSISTANCE IN REPOSITIONING. PT CHANGED OF INCONT BRIEF AND MINDA PAD. NEW PUREWICK PLACED. PT BOOSTED UP IN BED.
--- NOTE | 2022-01-04 07:30 | NUR ---
PATIENT SHIFT REPORT RECIEVED FROM SUSTAINABILITY OFFICER RN. PATIENT RESTING IN BED AT THIS TIME. PATIENT CALLS APPROPRIATELY. WILL CONTINUE TO CLOSELY MONITOR.
--- NOTE | 2022-01-04 08:30 | NUR ---
THIS RN IN TO HELP BOOST PATIENT UP IN BED FOR BREAKFAST. SILVER BRAZER AT THE BEDSIDE TO ASSIST PATIENT. WILL CONTINUE TO CLOSELY MONITOR.
--- NOTE | 2022-01-04 09:22 | NUR ---
PATIENT UP TO BSC FOR MED SOFT BM. BEDBATH GIVEN, INDLUDING MINDA CARE. PATIENT BACK TO BED, PURE WICK IN PLACE AND CONNECTED TO SUCTION. LINEN CHANGED. CALL LIGHT AND PERSONAL PHONE IN EASY REACH. NO OTHER NEEDS AT THIS TIME
--- NOTE | 2022-01-04 10:00 | NUR ---
PATIENT RESTING IN BED. THIS RN IN TO GIVE PATIENT HER MEDICATION. PATIENT TOLERATED WELL. PATIENT IV FLUSHED. PATIENT UP TO THE CAMMODE WITH BED OPERATOR PRIOR TO THIS RN COMING IN. PATIENTS HR 130'S. THIS RN GAVE PRN METOPROLOL FOR HR CONTROL. PATIENT ASSESSMENT COMPLETED. PATIENT BREATH SOUNDS COARSE AND DIMINISHED. PATIENT ON HER CHRONIC 4L OXYGEN VIA NC. BOWEL TONES ACTIVE. PATIENT DENIES ANY OTHER NEEDS AT THIS TIME. WILL CONTINUE TO CLOSELY MONITOR.
--- NOTE | 2022-01-04 11:44 | NUR ---
VITALS AND I&OS CHARTED. PATIENT RESTING IN BED.
--- NOTE | 2022-01-04 11:45 | NUR ---
PER AM MEETING PATIENT TO REMAIN IN CCU. NO CHANGE IN DISCHARGE PLAN AT THIS TIME. YANCY CRAFT ABLE TO ACCEPT THE PATIENT BACK WHEN STABLE.
--- NOTE | 2022-01-04 12:45 | NUR ---
PATIENT UP EATIN LUNCH AT THE EDGE OF HER BED. PATIENT BLOOD SUGAR 140 AND REQUIRES NO INSULIN. PATIENT DENIES ANY OTHER NEEDS AT THIS TIME. DISCUSSED WITH PATIENT THAT SHE WILL BE TRANSITIONED TO A MEDICAL PATIENT, BUT WILL BE STAYING IN HER ROOM HERE AT THIS TIME. WILL UPDATE PATIENT IF WE WILL BE ABLE TO MOVE HER TO A MEDICAL ROOM. PATIENT HAS CALL LIGHT. WILL CONTINUE TO CLOSELY MONITOR.
--- NOTE | 2022-01-04 14:26 | NUR ---
PATIENT ON BSC AT THIS TIME, CALL LIGHT IN EASY REACH TO CALL WHEN READY.
--- NOTE | 2022-01-04 14:30 | NUR ---
PATIENT UP TO THE CAMMODE WITH THERMODYNAMICS TEACHER. PATIENT HAS CALL LIGHT AND WILL CALL WHEN SHE IS READY. WILL CONTINUE TO CLOSELY MONITOR.
--- NOTE | 2022-01-04 16:45 | NUR ---
PATIENT RESTTING IN BED ON HER SIDE TAKING A NAP. PATIENT UPDATED ON PLAN OF CARE. PATIENT ON 4L NC WHICH IS PATIENT NORMAL OXYGEN AMOUNT. PATIENT DENIES ANY OTHER NEEDS AT THIS TIME. CALL LIGHT WITHIN REACH. WILL CONTINUE TO CLOSELY MONITOR.
--- NOTE | 2022-01-04 18:18 | NUR ---
THIS RN IN TO BRING PATIENT HER DINNER. PATIENT SITTING UP AT THE EDGE OF THE BED TO EAT. MEDICATION GIVEN. PATIENTS BLOOD SUGAR IS WITHIN A NORMAL RANGE. NO INSULIN NEEDED ALL DAY. PATIENT STATES "I DONT TAKE ANY MEDICATIONS FOR MY BLOOD SUGAR NORMALLY". PATIENT DENIES ANY OTHER NEEDS A TTHIS TIME. WILL CONTINUE TO CLOSELY MONITOR.
--- NOTE | 2022-01-04 19:20 | NUR ---
report from mary rn, pt alert and oriented in bed, call light in reach, denies needs. sl in left arm. pure wick in place and draining to suction, 4 l nc ox sats 91 % rt meera here to check in. cont. to follow pt.
--- NOTE | 2022-01-04 21:28 | NUR ---
pt absolutly refused fingerstick for blood sugar check - no insulin given - pt also refused stool softner - reports bm today. pt did agree to take tamiflu.
--- NOTE | 2022-01-04 21:45 | NUR ---
call to dr ch - updated on pt refusal to blood sugar checks and insulin. ok to dc - see new orders - also dc fluid restriction. daily wt - today now bed weight is 105.5 kg.
--- NOTE | 2022-01-05 00:01 | NUR ---
monitor showed hr 120-160 - rn icu suggested replace leads, hr umproved to 90 sr, considered prn metoprolol will watch - pt sleepimg denies needs.
--- NOTE | 2022-01-05 03:56 | NUR ---
pt resting in bed eyes closed, resp even - repositions self very well truning from side to side to side in bed. pure wick changed - draining urine well. hr 90-94, 02 sat on 4 l 91%, call light in reach,
--- NOTE | 2022-01-05 05:53 | NUR ---
PT INC OF URINE, MINDA CARE DONE AND LINEN CHANGED, OT ROLLS SIDE TO SIDE WELL. SKIN WNL INTACT, I/O DONE, PT DENIES NEEDS. ALERT AND ORIENTED. BS ION LAB DRAW WAS 111.
--- NOTE | 2022-01-05 07:30 | NUR ---
PATIENT SHIFT REPORT RECIEVED FROM PRESS ASSISTANT RN. PATIENT RESTING IN BED. PER REPORT PATIENT HAS BEEN CONFUSED THROUGH THE NIGHT. PATIENT HAS CALL LIGHT IN REACH. BED IN LOWEST POSITION. WILL CONTINUE TO CLOSELY MONITOR.
--- NOTE | 2022-01-05 08:30 | NUR ---
PATIENT UP TO BSC FOR BM. PATIENT WAS ALSO INCONTINENT OF URINE IN BRIEF. VITALS AND I&OS CHARTED. PATIENT SITTING AT SIDE OF BED FOR BREAKFAST, CALL LIGHT IN CLOSE REACH
[2022-01-05] MEDS ORDERED: OSELTAMIVIR PHO30 MG PO (08:32)
--- NOTE | 2022-01-05 09:00 | NUR ---
PATIENT CALLED TO GET UP TO THE CAMMODE. THIS RN AND ELECTRICAL APPLIANCE REPAIRER IN TO ASSIST PATIENT. PATIENT STOOD WITH BOTH STAFF, BUT WAS ABLE TO HOLD HER WEIGHT ON HER OWN. PATIENT ABLE TO MOVE FROM BED TO CAMMODE TO THE CHAIR. PATIENT IS WEAK, BUT CAN STAND AND MOVE WITH ENCOURAGEMENT AND SUPPORT. PATIENT ATE <25% OF HER BREKAFAST. PATIENT REFUSED CHOCOLATE ENSURE AND REFUSED WATER. CLEAR APPLE ENSURE PROVIDED. WILL ENCOURAGE PATIENT TO DRINK ENSURE. pATIENT IS SITTING IN THE CHAIR WITH EGG CRATE FOAM. PATIENTS FAMILY IS IN AT THE BEDSIDE. WILL CONTINUE TO CLOSELY MONITOR.
[2022-01-05] MEDS ORDERED: METOPROLOL SUCC25 MG PO (09:50)
--- NOTE | 2022-01-05 10:00 | NUR ---
VASOPRESSIN GTT TURNED DOWN TO 0.01 UNITS PER MIN. PATIENTS VITALS CONTINUE TO BE STABLE. WILL TRY TO TITRATE OFF AND MONITOR FOR EFFECTIVENESS. PATIENTS FAMILY AT THE BEDSIDE. CASE MANAGEMENT IN TO FOLLOW-UP WITH PATIENT AND HER FAMILY REGARDING PLAN OF CARE. PATIENT REPOSITION IN THE CHAIR. PHYSICAL THERAPY WILL BE IN SOON.
--- NOTE | 2022-01-05 10:30 | NUR ---
THIS RN DISCUSSED HR INCIDENT WITH MD MORRISON. PATIENTS HR 120'S WHILE SITTING ON THE EDGE OF THE BED. PATIENT HAS REMAINED IN A. FLUTTER. THIS RN WAS IN PATIENTS ROOM TO GIVE METOPROLOL PRN DOSE AND THEN PATIENTS HR SUDDENLY WENT TO 150'S. PATIENT ASYMPTOMATIC. HAD PATIENT LAY DOWN AND PRN METOPROLOL WAS GIVEN PER ORDER. PATIENT WILL DC ON ORAL METOPROLOL AND FOLLOW-UP WITH HER PRIMARY CARE PHYSICIAN. NO OTHER NEEDS AT THIS TIME. WILL CONTINUE TO CLOSELY MONITOR.
--- NOTE | 2022-01-05 10:40 | NUR ---
DC ORDERS, RX AND DC SUMMARY FAXED TO [facility].
--- NOTE | 2022-01-05 11:15 | NUR ---
PHYSICAL THERAPY NURIS IN TO WORK WITH PATIENT. THIS RN AT THE BEDSIDE TO ASSIST NEEDED. PATIENT WILLING TO STAY UP IN THE CHAIR UNTIL LUNCH THEN WOULD LIKE TO GET BACK TO BED. CALL LIGHT IN REACH. FAMILY AT THE BEDSIDE. WILL CONTINUE TO CLOSELY MONITOR.
--- NOTE | 2022-01-05 12:00 | NUR ---
PATIENT SHOWERED AND DRESSED IN PERSONAL CLOTHING. SITTING AT SIDE OF BED FOR LUNCH. CALL LIGHT IN CLOSE REACH
--- NOTE | 2022-01-05 12:10 | NUR ---
THIS RN IN TO SEE PATIENT. MEDICATIONS GIVEN. PATIENTS ASSESSMENT COMPLETED. PATIENTS BOWEL TONES ACTIVE. PT REFUSED MEDICATION FOR BOWEL MOVEMENT. PATIENT EATING BREAKFAST AT THIS TIME. BREATH SOUNDS ARE COARSE AND DIMINISHED. PATIENT ON 4L NC WHICH IS PATIENTS BASELINE OXYGEN. PATIENT DENIES ANY OTHER NEEDS AT THIS TIME. PATIENT AWARE SHE WILL MOST LIKELY DISCHAGE TODAY.
--- NOTE | 2022-01-05 12:30 | NUR ---
PATIENT FINISHED WITH HER SHOWER. THIS RN IN TO GIVFE MEDICATION. PATIENT IS TOELRATING ACTIVITY WELL. VITALS STABLE. PATIENT WAS ABLE TO TAKE WITH NO ISSUES. IV CATHETER REMOVED. PAPERWORK COMPLETED. WILL CONTINUE TO CLOSELY MONITOR.
--- NOTE | 2022-01-05 13:15 | NUR ---
THIS RN CALLED AND SPOKE WITH STAFF AND ASKED TO GIVE REPORT TO THEM. CONNECTED TO [facility]. UPDATED ON PATIENTS STAY AND MEDICATION CHANGES. NO OTHER REQUESTS AT THIS TIME. PATIENT UP TO THE TRANSPORT CHAIR. PAPERWORK READY. PATIENT READY TO DISCHARGE BACK TO FACILITY.
--- NOTE | 2022-01-05 13:30 | NUR ---
PATIENT OUT TO WHEELCHAIR VAN WITH RODERICK HAYWOOD. NO OTHER NEEDS AT THIS TIME. WILL CONTINUE TO CLOSELY MONITOR.
--- NOTE | 2022-01-08 11:28 | NUR ---
Heart Failure Follow Up Call Contacted Alicia Lafleurirez by phone. She was not very talkative and I could hear her coughing. She feels she is just needing to get over influenza. Medications are given to her at [facility]. She was aware she had appointment but not the specifics. I was able to locate visit date for 01/13 1630 with [facility] per [facility]. She did not have any questions for this service.
== END 2022-01-05 13:30 | DRG 280 ==
LOC: ED 17:11 → CCU 22:38
PROVIDERS: ADMIT Internal Medicine; ATTEND Internal Medicine
DX: I11.0 Hypertensive heart disease with heart failure (principal); I50.33 Acute on chronic diastolic (congestive) heart failure; I21.A1 Myocardial infarction type 2; J96.21 Acute and chronic respiratory failure with hypoxia; J44.1 Chronic obstructive pulmonary disease with (acute) exacerbation; Z68.43 Body mass index [BMI] 50.0-59.9, adult; Z20.822 Contact with and (suspected) exposure to COVID-19; Z66 Do not resuscitate; E66.01 Morbid (severe) obesity due to excess calories; J10.1 Influenza due to other identified influenza virus with other respiratory manifestations; G47.33 Obstructive sleep apnea (adult) (pediatric); M19.90 Unspecified osteoarthritis, unspecified site; B96.20 Unspecified Escherichia coli [E. coli] as the cause of diseases classified elsewhere; E11.9 Type 2 diabetes mellitus without complications; Z99.81 Dependence on supplemental oxygen; Z87.891 Personal history of nicotine dependence; Z90.711 Acquired absence of uterus with remaining cervical stump; Z90.49 Acquired absence of other specified parts of digestive tract; Z79.82 Long term (current) use of aspirin; Z79.899 Other long term (current) drug therapy
CPT/HCPCS: 36415; 51701; 71045; 80048; 80053; 81001; 83690; 83735; 83880; 84484; 85025; 87088; 87502; 93005; 93010; 99285-25; A9270; C9803; J0696; J1650; J1940; J7030; U0003

== ENCOUNTER 2022-01-13 17:08 | Inpatient (IN) | payer MEDICARE, OTHER ==
[~2022-01-13] VITALS: Ht 162.6 cm; Wt 106.8 kg
[~2022-01-13 17:08] MED LIST changes: +ARTIFICIAL TEAR15 M6 OU; +CLOTRIMAZOLE45 G1 TOP; +FLUTICASONE PRO16 GM NAS; +HYDROCORTISON28.4 G8 TOP; +LATANOPROST2.5 ML OU; +LOPERAMIDE2 MG PO; +MAPAP500 MG PO; +METOPROLOL SUCC25 MG PO; +NYSTATIN1 EAC6 TOP; +OSELTAMIVIR PHO30 MG PO; +TROSPIUM CHLORI20 MG PO; +VITAMIN D21250 MCG PO
--- OUTSIDE RECORDS SUMMARY | 2022-01-13 17:14 | XMS ---
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 Jeanna VISIT COUNT (12 MO.) 2 [facility] TOTAL 2 NOTE: Visits indicate total known visits. ED/UCC VISIT TRACKING (12 MO.) 01/13/2022 17:08 [facility] [place] TYPE: Emergency COMPLAINT: - HIGH HEART RATE 01/02/2022 17:12 [facility] [place] TYPE: Emergency COMPLAINT: - WEAKNESS INPATIENT VISIT TRACKING (12 MO.) 01/02/2022 22:38 [facility] [place] TYPE: Critical Care COMPLAINT: - ACUTE ON CHRONIC DIASTOLIC HEART FAIL. INFLUENZA A DIAGNOSES: - Hypertensive heart disease with heart failure - Type 2 diabetes mellitus without complications - Unspecified Escherichia coli [E. coli] as the cause of diseases classified elsewhere - long-term (current) use of aspirin - Influenza due to other identified influenza virus with other respiratory manifestations - Influenza due to other identified influenza virus with other respiratory manifestations - Acute on chronic diastolic (congestive) heart failure - Body mass index [BMI] 50.0-59.9, adult - Acquired absence of other specified parts of digestive tract - Myocardial infarction type 2 - Dependence on supplemental oxygen - Type 2 diabetes mellitus without complications - Acquired absence of other specified parts of digestive tract - Do not resuscitate - Body mass index [BMI] 50.0-59.9, adult - Obstructive sleep apnea (adult) (pediatric) - Personal history of nicotine dependence - Obstructive sleep apnea (adult) (pediatric) - Personal history of nicotine dependence - Chronic obstructive pulmonary disease with (acute) exacerbation - Acute and chronic respiratory failure with hypoxia - Unspecified Escherichia coli [E. coli] as the cause of diseases classified elsewhere - Chronic obstructive pulmonary disease with (acute) exacerbation - Unspecified osteoarthritis, unspecified site - Dependence on supplemental oxygen - Unspecified osteoarthritis, unspecified site - Acquired absence of uterus with remaining cervical stump - Acute and chronic respiratory failure with hypoxia - Contact with and (suspected) exposure to COVID-19 - Other [place] [facility] (current) drug therapy - Morbid (severe) obesity due to excess calories - Myocardial infarction type 2 - Hypertensive heart disease with heart failure - Acquired absence of uterus with remaining cervical stump - terminal operator (current) use of aspirin - Morbid (severe) obesity due to excess calories - Do not resuscitate - Other [place] [facility] (current) drug therapy - Contact with and (suspected) exposure to COVID-19 [email or web address]
--- NOTE | 2022-01-13 19:57 | EKG ---
[facility] [address] [facility] [place], [place] [address] Signed Sinus tachycardia Right bundle branch block , plus right ventricular hypertrophy Possible Lateral infarct , age undetermined Abnormal ECG When compared with ECG of 02-JAN-2022 19:18, premature atrial complexes are no longer present Confirmed by Raghu Mcgraw MD () on 01/13/2022 7:57:27 PM Electronically Signed By: RAGHU MCGRAW MD 01/13/221956 PATIENT NAME: BERYL MANCERA I Electrocardiogram DATE OF : 48 PHYSICIAN: RAGHU MCGRAW MD REPORT #: [id number] REPORT IS CONFIDENTIAL AND NOT TO BE RELEASED WITHOUT AUTHORIZATION
--- NOTE | 2022-01-13 20:30 | NUR ---
RECEIVED REPORT FROM ER NURSE ON ADMISSION. PT ORIENTED TO CARE SETTING, ADMISSION STATUS UPDATED, PT PROVIDED WITH APPROPRIATE DIET. VS TAKEN. PT CALL LIGHT IN REACH
--- NOTE | 2022-01-13 22:14 | NUR ---
IN PT ROOM FOR ROUNDING, ASSESSMENT. PT RESTING, LAYING ON SIDE. PT HAS NO COMPLAINT OF SOB. CALL LIGHT IN REACH.
--- NOTE | 2022-01-13 22:22 | EKG ---
[facility] [address] [facility] [place] [address] Signed Atrial flutter in inferior leads Right bundle branch block Possible Lateral infarct (cited on or before 13-JAN-2022) T wave abnormality, consider inferior ischemia Abnormal ECG When compared with ECG of 13-JAN-2022 17:10, (Unconfirmed) Vent. rate has decreased BY 47 BPM Confirmed by Raghu Mcgraw MD () on 01/13/2022 10:22:24 PM Electronically Signed By: RAGHU MCGRAW MD 01/13/222221 PATIENT NAME: BERYL MANCERA I Electrocardiogram DATE OF : 48 PHYSICIAN: RAGHU MCGRAW MD REPORT #: [id number] REPORT IS CONFIDENTIAL AND NOT TO BE RELEASED WITHOUT AUTHORIZATION
--- NOTE | 2022-01-13 22:50 | NUR ---
PT TRANSFERRED TO UNIT FROM MED SURG. RECEIVED REPORT FROM KARY REYNA. PT IS A/O, RESPIRATIONS EVEN AND REGULAR. RESTING HR 80-90'S. PT RATES PAIN 8/10 CHRONIC GENERALIZED PAIN. PUREWICK IN PLACE. CALL LIGHT WITHIN REACH.
--- NOTE | 2022-01-13 23:09 | NUR ---
GAVE REPORT TO CCU RN REGARDING PT TRANSFER. PT BELONGINGS INCLUDING ELECTRIC WHEEL CHAIR WERE TRANSFERRED TO PT NEW ROOM. PT ORIENTED TO NEW UNIT AND HAND OFF COMPLETE, CCU RN ACCEPTED RESPONSIBILITY.
--- NOTE | 2022-01-13 23:53 | NUR ---
TO PT ROOM FOR MEDICATION ADMINISTRATION. PT IS A/O, RESTING COMFORTABLY IN BED. PUREWICK IN PLACE. IV HEPARIN RUNNING. CALL LIGHT WITHIN REACH.
--- NOTE | 2022-01-14 00:21 | NUR ---
UPDATE GIVEN TO YANCY REGARDING PT.
--- NOTE | 2022-01-14 01:20 | NUR ---
ROUNDED ON PT. PT IS A/O, RESPIRATIONS EVEN AND REGULAR. REQUESTING WATER. PUREWICK IN PLACE. IV HEPARIN RUNNING. IV SITE WNL. CALL LIGHT WITHIN REACH.
--- NOTE | 2022-01-14 03:00 | NUR ---
ROUNDED ON PT. PT APPEARS TO BE SLEEPING COMFORTABLY. RESPIRATIONS EVEN AND REGULAR. CALL LIGHT WITHIN REACH.
--- NOTE | 2022-01-14 05:15 | NUR ---
PT AM LABS DRAWN, ASSESSMENT COMPLETED. PT UP TO CHAIR. IV HEPARIN RUNNING. IV SITE WNL. PT IS A/O, RESPIRATIONS EVEN AND REGULAR. RESTING HEART RATE 80-90'S. CALL LIGHT WITHIN REACH.
--- NOTE | 2022-01-14 06:30 | NUR ---
IV HEPARIN WAS HELD FOR 30MINUTES AND DECREASED BY 100UNITS/HR. NOW RUNNING AT 1300UNITS/HOUR. PT TRANSFERRED BACK TO BED FROM CHAIR. MINDA CARE COMPLETED. NEW PUREWICK IN PLACE. CALL LIGHT WITHIN REACH.
--- NOTE | 2022-01-14 07:45 | NUR ---
REPORT RECEIVED FROM VIKY PRESTON. WENT INTO PT ROOM, INTRODUCED MYSELF AND BREAKFAST GIVEN. PT REPOSITIONED HIGHER IN BED TO EAT MEAL. PT DENIES PAIN OR DISCOMFORT. PT INFORMED THIS RN WILL RETURN TO ROOM ONCE PT FINISHES MEAL TO ASSIST WITH MORNING CARE.
--- NOTE | 2022-01-14 08:30 | NUR ---
ASSESSMENT COMPLETED. HEPARIN DRIP CONTINUES TO INFUSE AT 1300 UNITS PER HOUR IN LEFT AC IV. HR 97 AFLUTTER, PT DENIES CARDIAC SYMPTOMS. PT ON 6L NC. LUNG SOUNDS HAVE FINE CRACKLES AND DIMINSHED IN BASE, CLEAR IN UPPER LOBES. RESPIRATION EVEN AND UNLABORED, DENIES SHORTNESS OF BREATH. EDEMA 1+ PRESENT IN LOWER EXTREMITIES BILATERALLY. ATTENDS CLEAR AND PUREWICK IN PLACE, DRAINING YELLOW URINE. ORAL HYGIENE AND BEDBATH COMPLETED WITH CLEAN GOWN PLACED ON PT. PT ALERT AND ORIENTED, BEDRAILS UP X2 FOR SAFETY AND CALL LIGHT WITHIN REACH.
--- NOTE | 2022-01-14 09:05 | NUR ---
MD IN WITH PT TO DISCUSS PLAN OF CARE.
--- NOTE | 2022-01-14 11:05 | NUR ---
IN ROOM TO CHECK ON PT. THIS RN PLACED NYSTATIN POWDER UNDER RIGHT BREAST WHERE RASH IS PRESENT. PT ASSISTED INTO ELECTRIC WHEELCHAIR WITH ONE PERSON ASSIST. PUREWICK REMOVED. PT CONTINUES ON 1300UNIT/HR HEPARIN DRIP AND 4L NC. IV ACCESS WNL. PT DENIES PAIN OR RESPIRATORY/ CARDIAC DISTRESS. TEA GIVEN TO PT PER REQUEST. NO FURTHER NEEDS AT THIS TIME.
--- NOTE | 2022-01-14 11:10 | NUR ---
MED REC COMPLETE
--- NOTE | 2022-01-14 11:43 | NUR ---
PT LUNCH BROUGHT TO PT. PT SITTING IN ELECTRIC WHEELCHAIR WITH CALL LIGHT WITHIN REACH. NO COMPLAINTS AT THIS TIME. PT INFORMED THIS RN WILL BE BACK IN ROOM FOR ASSESSMENT ONCE PT FINISHES LUNCH.
--- NOTE | 2022-01-14 12:10 | NUR ---
DR MCGRAW IN TO SEE PT AND DISCUSS PLAN OF CARE. APTT LAB OBTAINED THROUGH RIGTH UPPER ARM IV, 8ML WASTED BEFORE SAMPLE COLLECTED. SAMPLE SENT TO LAB.
--- NOTE | 2022-01-14 12:45 | NUR ---
PATIENT IS ON COMMODE, STATES SHE IS READY TO RETURN TO BED. NO BM, SMALL AMOUNT OF URINE. BACK TO TO BED, WITH MOVEMENT HR UP TO 135, PATIENT DENIES SHORTNESS OF BREATH/DIZZINESS. ELIQUIS AND TOPROL XL GIVEN PER ORDERS. ATTENDS AND PURE WICK IN PLACE. HEPARIN GTT DC'D. HOB ELEVATED TO APPROX 30 DEGRESS. CALL LIGHT WITHIN REACH.
--- NOTE | 2022-01-14 14:00 | NUR ---
PT RESTING IN BED, CALL LIGHT WITHIN REACH, BEDRAILS UP FOR SAFETY. NO COMPLAINTS AT THIS TIME. RESPIRATIONS EVEN AND UNLABORED. PT MAGNESIUM FINISHED AND IV FLUSHED. PT ON 4LNC.
--- NOTE | 2022-01-14 16:40 | NUR ---
PT ASSISTED OUT OF BED AND INTO ELECTRIC WHEELCHAIR WITH ONE PERSON ASSIST. PUREWICK REMOVED PRIOR TO TRANSFER. ENCOURAGED PT TO STAY IN ELECTRIC WHEELCHAIR UNTIL AFTER DINNER. PT GIVEN TYLENOL PER REQUEST FOR HEADACHE. PT RESPIRATIONS EVEN AND UNLABORED. CALL LIGHT WITHIN REACH, NO COMPLAINTS AT THIS TIME.
--- NOTE | 2022-01-14 17:30 | NUR ---
REPORT FROM ORLANDO PRESTON IN CCU, PT TO RM 114 WHEN READY.
--- NOTE | 2022-01-14 17:35 | NUR ---
REPORT GIVEN TO NAVI PRESTON.
--- NOTE | 2022-01-14 17:54 | NUR ---
to room 114 from ccu via personal motor chair. oriented to room, vitals taken. call light in reach.
--- NOTE | 2022-01-14 17:55 | NUR ---
PT MOVED TO M/S ROOM 114 VIA HER ELECTRIC WHEELCHAIR.
--- NOTE | 2022-01-14 18:06 | NUR ---
pt 2 person assist trsf from ch to bed, call light in reach, tele on, and nc 4l - sob with exertion - pt requests independence but needs help with transfer standby.
--- NOTE | 2022-01-14 18:17 | NUR ---
NIO ORDER FOR NO BM X3 DAYS - START PO STOOL SOFTNER AND EDUCATION TODAY.
--- NOTE | 2022-01-14 19:40 | NUR ---
IN PT ROOM FOR ROUNDING. ASSISTED PT IN MAKING PHONE CALL TO DAUGHTER. PT HAS NO COMPLAINT OF PAIN OR DISCOMFORT, CALL LIGHT IN REACH.
--- NOTE | 2022-01-14 19:46 | NUR ---
SPOKE WITH PT DAUGHTER YOANNA ABOUT CURRENT SITUATION WITH PT, EDUCATED ON NEW MEDICATIONS AND DISCHARGE INFORMATION, YOANNA INDICATED UNDERSTANDING.
--- NOTE | 2022-01-14 20:57 | NUR ---
VS AND I&O COMPLETE. PT INCONTINENT OF URINE. MINDA CARE DONE BY STAFF AND CLEAN BRIEF PLACED. UNDER RIGHT BREAST AND GROIN AREA CLEANED AND DRIED DUE TO FOUL SMELLING RASH. POWDER APPLIED PER ORDER. PUREWICK IN PLACE FOR THE NIGHT PER PT REQUEST. 2PA TO REPOSITION IN BED. PT ABLE TO ASSIST IN CARES. NO FURTHER NEEDS. CALL LIGHT IN REACH.
--- NOTE | 2022-01-14 21:34 | EKG ---
[facility] [address] [place] [address] Signed Atrial flutter with variable AV block Right bundle branch block Left anterior fascicular block Bifascicular block Possible Lateral infarct (cited on or before 13-JAN-2022) Abnormal ECG When compared with ECG of 13-JAN-2022 18:59, No significant change was found Confirmed by Raghu Mcgraw MD () on 01/14/2022 9:34:36 PM Electronically Signed By: RAGHU MCGRAW MD 01/14/22 2134 PATIENT NAME: BERYL MANCERA I Electrocardiogram DATE OF : 48 PHYSICIAN: RAGHU MCGRAW MD REPORT #: [id number] REPORT IS CONFIDENTIAL AND NOT TO BE RELEASED WITHOUT AUTHORIZATION
--- NOTE | 2022-01-14 22:06 | NUR ---
OFFERED TO PT TO CONDUCT A DIGITAL FECAL IMPACTION ASSESSMENT AND PT REFUSED.
--- NOTE | 2022-01-14 22:41 | NUR ---
In pt room for rounding. Pt appears to be sleeping on back. Pt breathing even, unlabored, no indication of pain or discomfort. Pt call light in reach.
--- NOTE | 2022-01-14 23:28 | NUR ---
IN PT ROOM FOR ROUNDING, PT RESTING, NO COMPLAINT OF PAIN OR DISCOMFORT, TELEMETRY STILL WORKING, CALL LIGHT IN REACH
--- NOTE | 2022-01-15 00:42 | NUR ---
IN PT ROOM FOR ROUNDING, PT RESTING ON BACK, BREATHING EVEN AND UNLABORED, TELEMETRY WORKING APPROPRIATELY. PT CALL LIGHT IN REACH
--- NOTE | 2022-01-15 01:41 | NUR ---
IN PT ROOM FOR ROUNDING. PT RESTING WITH EYES CLOSED, APPEARS ASLEEP. PT BREATHING EVEN AND UNLABORED, TLELMETRY WORKING APPROPRIATELY. PT CALL LIGHT IN REACH
--- NOTE | 2022-01-15 02:00 | NUR ---
IN PT ROOM FOR ROUNDING - PT O2 WAS REMOVED FROM NOSE SO O2 ASSESSMENT DONE AND FOUND TO BE DESATTED TO LOW 80'S. PT WAS REPOSITIONED, O2 REAPPLIED, AND CPOX APPLIED TO BETTER MONITOR SITUATION. AFTER INTERVENTIONS PT O2 SATURATION APPROPRIATE AT 95%. PT CALL LIGHT IN REACH
--- NOTE | 2022-01-15 03:25 | NUR ---
IN PT ROOM FOR ROUNDING. PT MONITOR SHOWS O2 95, HR 85. PT SHOWS NO SIGNS OF DISTRESS, O2 IN PLACE, CALL LIGHT IN REACH.
--- NOTE | 2022-01-15 05:25 | NUR ---
IN PT ROOM FOR ROUNDING, PT RESTING ON SIDE, NO INDICATIONS OF PAIN OR DISCOMFORT. PT CALL LIGHT IN REACH, MONITORS IN PLACE AND WORKING APPROPRIATELY
--- NOTE | 2022-01-15 06:35 | NUR ---
in pt room for rounding, change pt brief. pt incontinent x2, Purewick replaced. Pt not complaining of pain or discomfort, call light in reach
--- NOTE | 2022-01-15 07:44 | NUR ---
PT SLEEPING SOUNDLY AT TIME OF SHIFT REPORT. CALL LIGHT AND NEEDED ITEMS IN REACH. PT LEFT UNDISTURBED
[2022-01-15] MEDS ORDERED: METOPROLOL SUCC50 MG PO (10:39)
[2022-01-15] MEDS ORDERED: ELIQUIS5 MG PO (10:39)
--- NOTE | 2022-01-15 10:46 | NUR ---
PT SLEEPING SOUNDLY, AWAKENED FOR MEDS AND MORNING MEAL. RETURNS TO SLEEPING SOUNDLY SOON AFTER. AWAKENED AGAIN FOR DR MCGRAW VISIT. PT RESTING EYES CLOSED AT THIS TIME
--- NOTE | 2022-01-15 11:00 | NUR ---
PT CALL LIGHT ANSWERED. PT STATED SHE NEEDS TO USE THE RESTROOM. UPON ENTERING THE ROOM PT WAS COVERED IN STOOL. STAMPING OPERATOR NOTIFED AND ASSISTED IN CHANGING PT. NO FURTHER NEEDS. CALL LIGHT WITHIN REACH.
--- NOTE | 2022-01-15 11:04 | NUR ---
Marci Tian notifed that patient will be DC'd today via wheelchair van.
== END 2022-01-15 14:30 | disposition home or self-care (01) | DRG 308 ==
LOC: ED 17:08 → MS 17:09 → CCU 22:40 → MS 01-14 17:54
PROVIDERS: ADMIT Family Medicine; ATTEND Family Medicine
DX: I48.92 Unspecified atrial flutter (principal); J96.01 Acute respiratory failure with hypoxia; N17.9 Acute kidney failure, unspecified; I13.0 Hypertensive heart and chronic kidney disease with heart failure and stage 1 through stage 4 chronic kidney disease, or unspecified chronic kidney disease; E83.42 Hypomagnesemia; N18.9 Chronic kidney disease, unspecified; Z20.822 Contact with and (suspected) exposure to COVID-19; E03.9 Hypothyroidism, unspecified; M19.90 Unspecified osteoarthritis, unspecified site; I50.9 Heart failure, unspecified; J44.9 Chronic obstructive pulmonary disease, unspecified; E11.22 Type 2 diabetes mellitus with diabetic chronic kidney disease; Z99.81 Dependence on supplemental oxygen; Z87.891 Personal history of nicotine dependence; Z90.711 Acquired absence of uterus with remaining cervical stump; Z90.49 Acquired absence of other specified parts of digestive tract; Z79.82 Long term (current) use of aspirin; Z79.84 Long term (current) use of oral hypoglycemic drugs; Z79.899 Other long term (current) drug therapy
CPT/HCPCS: 36415; 71045; 80053; 83735; 83880; 84443; 84484; 85007; 85025; 85060; 85610; 85730; 93005; 93010; 96374; 96375; 99285-25; A9270; C9803; J1644; J1940; J3475; U0003

== ENCOUNTER 2022-09-13 17:32 | Emergency (ER) | payer MEDICARE, OTHER ==
[~2022-09-13] VITALS: Ht 162.6 cm; Wt 106.6 kg
--- OUTSIDE RECORDS SUMMARY | ~2022-09-13 | XMS | Continuity of Care Document ---
Demographics + + + | Address | [address] | | | [place] [address] | + + + | Preferred Language | Unknown | + + + | Marital Status | Never | + + + | [employer] Affiliation | Unknown | + + + | Race | White | + + + | Ethnic Group | Not or | + + + Author + + + | Author | [facility] | + + + | Organization | [facility] | + + + | Address | [address] | | | [place] [address] | + + + | Phone | | + + + Care Team Providers + + + + | Care Senior Front End Web Developer Name | Role | Phone | + + + + Unavailable | Unavailable | + + + + Unavailable | Unavailable | + + + + Unavailable | Unavailable | + + + + Allergies No information. Encounters No information. Functional Status No information. Immunizations No information. Medications + + + + | date | description | facility | + + + + | 2022-01-15 00:00 | APIXABAN | [facility] | + + + + | 2022-01-05 00:00 | Ergocalciferol (Vitamin | [facility] | | | D2) | | + + + + | 2022-01-15 00:00 | Ergocalciferol (Vitamin | [facility] | | | D2) | | + + + + | 2017-10-01 00:00 | IPRATROPIUM/ALBUTEROL | [facility] | | | SULFATE | | + + + + | 2017-10-01 00:00 | IPRATROPIUM/ALBUTEROL | [facility] | | | SULFATE | | + + + + | 2022-01-05 00:00 | Carboxymethylcellulose | [facility] | | | Sodium | | + + + + | 2022-01-15 00:00 | Carboxymethylcellulose | [facility] | | | Sodium | | + + + + | 2022-01-05 00:00 | FLUTICASONE PROPIONATE 50 | [facility] | | | MCG | | + + + + | 2022-01-15 00:00 | FLUTICASONE PROPIONATE 50 | [facility] | | | MCG | | + + + + | 2022-01-05 00:00 | ALLOPURINOL | [facility] | + + + + | 2022-01-15 00:00 | ALLOPURINOL | [facility] | + + + + | 2022-01-05 00:00 | Hydrocortisone | [facility] | + + + + | 2022-01-15 00:00 | Hydrocortisone | [facility] | + + + + | 2017-10-01 00:00 | MAGNESIUM OXIDE | [facility] | + + + + | 2017-10-01 00:00 | MAGNESIUM OXIDE | [facility] | + + + + | 2022-01-05 00:00 | ACETAMINOPHEN | [facility] | + + + + | 2022-01-15 00:00 | ACETAMINOPHEN | [facility] | + + + + | 2022-01-05 00:00 | CALCIUM CARBONATE | [facility] | + + + + | 2022-01-15 00:00 | CALCIUM CARBONATE | [facility] | + + + + | 2022-01-05 00:00 | CHOLECALCIFEROL (VITAMIN | [facility] | | | D3) | | + + + + | 2022-01-15 00:00 | CHOLECALCIFEROL (VITAMIN | [facility] | | | D3) | | + + + + | 2017-10-01 00:00 | NYSTATIN | [facility] | + + + + | 2017-10-01 00:00 | NYSTATIN | [facility] | + + + + | 2022-01-05 00:00 | NYSTATIN | [facility] | + + + + | 2022-01-15 00:00 | NYSTATIN | [facility] | + + + + | 2022-01-05 00:00 | FERROUS FUMARATE | [facility] | + + + + | 2022-01-15 00:00 | FERROUS FUMARATE | [facility] | + + + + | 2022-01-05 00:00 | FAMOTIDINE | [facility] | + + + + | 2022-01-15 00:00 | FAMOTIDINE | [facility] | + + + + | 2022-01-05 00:00 | AMLODIPINE BESYLATE | [facility] | + + + + | 2022-01-15 00:00 | AMLODIPINE BESYLATE | [facility] | + + + + | 2022-01-05 00:00 | ASPIRIN | [facility] | + + + + | 2022-01-15 00:00 | ASPIRIN | [facility] | + + + + | 2022-01-05 00:00 | Clotrimazole | [facility] | + + + + | 2022-01-15 00:00 | Clotrimazole | [facility] | + + + + | 2022-01-05 00:00 | CYANOCOBALAMIN (VITAMIN | [facility] | | | B-12) | | + + + + | 2022-01-15 00:00 | CYANOCOBALAMIN (VITAMIN | [facility] | | | B-12) | | + + + + | 2022-01-05 00:00 | FUROSEMIDE | [facility] | + + + + | 2022-01-15 00:00 | FUROSEMIDE | [facility] | + + + + | 2022-01-05 00:00 | GLIPIZIDE | [facility] | + + + + | 2017-10-01 00:00 | FUROSEMIDE | [facility] | + + + + | 2017-10-01 00:00 | FUROSEMIDE | [facility] | + + + + | 2022-01-05 00:00 | LATANOPROST | [facility] | + + + + | 2022-01-15 00:00 | LATANOPROST | [facility] | + + + + | 2017-10-01 00:00 | POTASSIUM CHLORIDE | [facility] | + + + + | 2017-10-01 00:00 | POTASSIUM CHLORIDE | [facility] | + + + + | 2017-10-01 00:00 | ALBUTEROL SULFATE | [facility] | + + + + | 2017-10-01 00:00 | ALBUTEROL SULFATE | [facility] | + + + + | 2022-01-05 00:00 | Oseltamivir Phosphate | [facility] | + + + + | 2022-01-05 00:00 | ASPIRIN | [facility] | + + + + | 2022-01-15 00:00 | ASPIRIN | [facility] | + + + + | 2017-10-01 00:00 | DICLOFENAC SODIUM | [facility] | + + + + | 2017-10-01 00:00 | DICLOFENAC SODIUM | [facility] | + + + + | 2022-01-05 00:00 | HYDROCODONE | [facility] | | | BIT/ACETAMINOPHEN | | + + + + | 2022-01-15 00:00 | HYDROCODONE | [facility] | | | BIT/ACETAMINOPHEN | | + + + + | 2022-01-05 00:00 | TROSPIUM CHLORIDE | [facility] | + + + + | 2022-01-15 00:00 | TROSPIUM CHLORIDE | [facility] | + + + + | 2022-01-05 00:00 | METOPROLOL SUCCINATE | [facility] | + + + + | 2022-01-05 00:00 | METOPROLOL SUCCINATE | [facility] | + + + + | 2022-01-15 00:00 | METOPROLOL SUCCINATE | [facility] | + + + + | 2022-01-05 00:00 | PRAVASTATIN SODIUM | [facility] | + + + + | 2022-01-15 00:00 | PRAVASTATIN SODIUM | [facility] | + + + + | 2022-01-05 00:00 | LEVOTHYROXINE SODIUM | [facility] | + + + + | 2022-01-15 00:00 | LEVOTHYROXINE SODIUM | [facility] | + + + + | 2022-01-05 00:00 | LOPERAMIDE HCL | [facility] | + + + + | 2022-01-15 00:00 | LOPERAMIDE HCL | [facility] | + + + + Problems + + + + | date | description | facility | + + + + | 2015-08-22 00:00 | CHF (congestive heart | [facility] | | | failure) | | + + + + | 2015-08-22 00:00 | CHF (congestive heart | [facility] | | | failure) | | + + + + | 2017-09-25 00:00 | Pulmonary edema | [facility] | + + + + | 2017-09-25 00:00 | Pulmonary edema | [facility] | + + + + | 2017-09-25 00:00 | Shortness of breath | [facility] | + + + + | 2017-09-25 00:00 | Shortness of breath | [facility] | + + + + | 2019-09-03 00:00 | Contusion of left foot | [facility] | + + + + | 2019-09-03 00:00 | Contusion of left foot | [facility] | + + + + | 2022-01-02 00:00 | Acute on chronic diastolic | [facility] | | | congestive heart failure | | + + + + | 2022-01-02 00:00 | Acute on chronic diastolic | [facility] | | | congestive heart failure | | + + + + | 2022-01-03 00:00 | Congestive heart failure | [facility] | + + + + | 2022-01-03 00:00 | Congestive heart failure | [facility] | + + + + | 2022-01-03 00:00 | Influenza due to influenza | [facility] | | | virus, type A, human | | + + + + | 2022-01-03 00:00 | Influenza due to influenza | [facility] | | | virus, type A, human | | + + + + | 2022-01-03 00:00 | Acute exacerbation of | [facility] | | | chronic obstructive | | | | pulmonary disease | | + + + + | 2022-01-03 00:00 | Acute exacerbation of | [facility] | | | chronic obstructive | | | | pulmonary disease | | + + + + Procedures No information. Results/Labs +--------+--------+ + +---------+--------+ + | test | date | author | facility | value | unit | | | | | | | | | interpreta | | | | | | | | tion | +--------+--------+ + +---------+--------+ + + + | Result panel 1 | + + + + + + +---------+ + + | (unknown) | (no date) | (unknown) | [facility] | (no | (units | (unknown) | | | | [facility] | value) | unknown) | | [facility] | | | | + + + + +---------+ + + + + | Result panel 2 | + + + + + + +---------+ + + | (unknown) | (no date) | (unknown) | [facility] | (no | (units | (unknown) | | | | | [facility] | value) | unknown) | | | | [facility] | | | | + + + + +---------+ + + + + | Result panel 3 | + + + + + + +---------+ + + | (unknown) | (no date) | (unknown) | [facility] | (no | (units | (unknown) | | | | | [facility] | value) | unknown) | | | | [facility] | | | | + + + + +---------+ + + + + | Result panel 4 | + + + + + + +---------+ + + | (unknown) | (no date) | (unknown) | [facility] | (no | (units | (unknown) | | | | | [facility] | value) | unknown) | | | | [facility] | | | | + + + + +---------+ + + + + | Result panel 5 | + + + + + + +---------+ + + | (unknown) | (no date) | (unknown) | [facility] | (no | (units | (unknown) | | | | | [facility] | value) | unknown) | | | | [facility] | | | | + + + + +---------+ + + + + | Result panel 6 | + + + + + + +---------+ + + | (unknown) | (no date) | (unknown) | [facility] | (no | (units | (unknown) | | | | | [facility] | value) | unknown) | | | | [facility] | | | | + + + + +---------+ + + + + | Result panel 7 | + + + + + + +---------+ + + | (unknown) | (no date) | (unknown) | [facility] | (no | (units | (unknown) | | | | [facility] | value) | unknown) | | | | [facility] | | | | + + + + +---------+ + + + + | Result panel 8 | + + + + + + +---------+ + + | (unknown) | (no date) | (unknown) | [facility] | (no | (units | (unknown) | | | | | [facility] | value) | unknown) | | | | [facility] | | | | + + + + +---------+ + + + + | Result panel 9 | + + + + + + +---------+ + + | (unknown) | (no date) | (unknown) | [facility] | (no | (units | (unknown) | | | | | [facility] | value) | unknown) | | | | [facility] | | | | + + + + +---------+ + + + + | Result panel 10 | + + + + + + +---------+ + + | (unknown) | (no date) | (unknown) | [facility] | (no | (units | (unknown) | | | | | [facility] | value) | unknown) | | | | [facility] | | | | + + + + +---------+ + + + + | Result panel 11 | + + + + + + +---------+ + + | (unknown) | (no date) | (unknown) | [facility] | (no | (units | (unknown) | | | | | [facility] | value) | unknown) | | | | [facility] | | | | + + + + +---------+ + + + + | Result panel 12 | + + + + + + +---------+ + + | (unknown) | (no date) | (unknown) | [facility] | (no | (units | (unknown) | | | | | [facility] | value) | unknown) | | | | [facility] | | | | + + + + +---------+ + + + + | Result panel 13 | + + + + + + +---------+ + + | (unknown) | (no date) | (unknown) | [facility] | (no | (units | (unknown) | | | | [facility] | value) | unknown) | | | | [facility] | | | | + + + + +---------+ + + + + | Result panel 14 | + + + + + + +---------+ + + | (unknown) | (no date) | (unknown) | [facility] | (no | (units | (unknown) | | | | | [facility] | value) | unknown) | | | | [facility] | | | | + + + + +---------+ + + + + | Result panel 15 | + + + + + + +---------+ + + | (unknown) | (no date) | (unknown) | [facility] | (no | (units | (unknown) | | | | | [facility] | value) | unknown) | | | | [facility] | | | | + + + + +---------+ + + + + | Result panel 16 | + + + + + + +---------+ + + | (unknown) | (no date) | (unknown) | [facility] | (no | (units | (unknown) | | | | | [facility] | value) | unknown) | | | | [facility] | | | | + + + + +---------+ + + + + | Result panel 17 | + + + + + + +---------+ + + | (unknown) | (no date) | (unknown) | [facility] | (no | (units | (unknown) | | | | | [facility] | value) | unknown) | | | | [facility] | | | | + + + + +---------+ + + + + | Result panel 18 | + + + + + + +---------+ + + | (unknown) | (no date) | (unknown) | [facility] | (no | (units | (unknown) | | | | [facility] | value) | unknown) | | | | [facility] | | | | + + + + +---------+ + + + + | Result panel 19 | + + + + + + +---------+ + + | (unknown) | (no date) | (unknown) | [facility] | (no | (units | (unknown) | | | | | [facility] | value) | unknown) | | | | [facility] | | | | + + + + +---------+ + + + + | Result panel 20 | + + + + + + +---------+ + + | (unknown) | (no date) | (unknown) | [facility] | (no | (units | (unknown) | | | | [facility] | value) | unknown) | | | | [facility] | | | | + + + + +---------+ + + + + | Result panel 21 | + + + + + + +---------+ + + | (unknown) | (no date) | (unknown) | [facility] | (no | (units | (unknown) | | | | [facility] | value) | unknown) | | | | [facility] | | | | + + + + +---------+ + + + + | Result panel 22 | + + + + + + +---------+ + + | (unknown) | (no date) | (unknown) | [facility] | (no | (units | (unknown) | | | | [facility] | value) | unknown) | | | | [facility] | | | | + + + + +---------+ + + + + | Result panel 23 | + + + + + + +---------+ + + | (unknown) | (no date) | (unknown) | [facility] | (no | (units | (unknown) | | | | | [facility] | value) | unknown) | | | | [facility] | | | | + + + + +---------+ + + + + | Result panel 24 | + + + + + + +---------+ + + | (unknown) | (no date) | (unknown) | [facility] | (no | (units | (unknown) | | | | | [facility] | value) | unknown) | | | | [facility] | | | | + + + + +---------+ + + + + | Result panel 25 | + + + + + + +---------+ + + | (unknown) | (no date) | (unknown) | [facility] | (no | (units | (unknown) | | | | | [facility] | value) | unknown) | | | | [facility] | | | | + + + + +---------+ + + + + | Result panel 26 | + + + + + + +---------+ + + | (unknown) | (no date) | (unknown) | [facility] | (no | (units | (unknown) | | | | [facility] | value) | unknown) | | | | [facility] | | | | + + + + +---------+ + + + + | Result panel 27 | + + + + + + +---------+ + + | (unknown) | (no date) | (unknown) | [facility] | (no | (units | (unknown) | | | | [facility] | value) | unknown) | | | | [facility] | | | | + + + + +---------+ + + + + | Result panel 28 | + + + + + + +---------+ + + | (unknown) | (no date) | (unknown) | [facility] | (no | (units | (unknown) | | | | [facility] | value) | unknown) | | | | [facility] | | | | + + + + +---------+ + + + + | Result panel 29 | + + + + + + +---------+ + + | (unknown) | (no date) | (unknown) | [facility] | (no | (units | (unknown) | | | | [facility] | value) | unknown) | | | | [facility] | | | | + + + + +---------+ + + + + | Result panel 30 | + + + + + + +---------+ + + | (unknown) | (no date) | (unknown) | [facility] | (no | (units | (unknown) | | | | [facility] | value) | unknown) | | | | [facility] | | | | + + + + +---------+ + + + + | Result panel 31 | + + + + + + +---------+ + + | (unknown) | (no date) | (unknown) | [facility] | (no | (units | (unknown) | | | | [facility] | value) | unknown) | | | | [facility] | | | | + + + + +---------+ + + + + | Result panel 32 | + + + + + + +---------+ + + | (unknown) | (no date) | (unknown) | [facility] | (no | (units | (unknown) | | | | | [facility] | value) | unknown) | | | | [facility] | | | | + + + + +---------+ + + + + | Result panel 33 | + + + + + + +---------+ + + | (unknown) | (no date) | (unknown) | [facility] | (no | (units | (unknown) | | | | [facility] | value) | unknown) | | | | [facility] | | | | + + + + +---------+ + + + + | Result panel 34 | + + + + + + +---------+ + + | (unknown) | (no date) | (unknown) | [facility] | (no | (units | (unknown) | | | | [facility] | value) | unknown) | [facility] | | [facility] | | | | + + + + +---------+ + + + + | Result panel 35 | + + + + + + +---------+ + + | (unknown) | (no date) | (unknown) | [facility] | (no | (units | (unknown) | | | | [facility] | value) | unknown) | | | | [facility] | | | | + + + + +---------+ + + + + | Result panel 36 | + + + + + + +---------+ + + | (unknown) | (no date) | (unknown) | [facility] | (no | (units | (unknown) | | | | [facility] | value) | unknown) | | | | [facility] | | | | + + + + +---------+ + + + + | Result panel 37 | + + + + + + +---------+ + + | (unknown) | (no date) | (unknown) | [facility] | (no | (units | (unknown) | | | | | [facility] | value) | unknown) | | | | [facility] | | | | + + + + +---------+ + + + + | Result panel 38 | + + + + + + +---------+ + + | (unknown) | (no date) | (unknown) | [facility] | (no | (units | (unknown) | | | | [facility] | value) | unknown) | | | | [facility] | | | | + + + + +---------+ + + + + | Result panel 39 | + + + + + + +---------+ + + | (unknown) | (no date) | (unknown) | [facility] | (no | (units | (unknown) | | | | [facility] | value) | unknown) | | | | [facility] | | | | + + + + +---------+ + + + + | Result panel 40 | + + + + + + +---------+ + + | (unknown) | (no date) | (unknown) | [facility] | (no | (units | (unknown) | | | | [facility] | value) | unknown) | | | | [facility] | | | | + + + + +---------+ + + + + | Result panel 41 | + + + + + + +---------+ + + | (unknown) | (no date) | (unknown) | [facility] | (no | (units | (unknown) | | | | [facility] | value) | unknown) | | | | [facility] | | | | + + + + +---------+ + + + + | Result panel 42 | + + + + + + +---------+ + + | (unknown) | (no date) | (unknown) | [facility] | (no | (units | (unknown) | | | | [facility] | value) | unknown) | | | | [facility] | | | | + + + + +---------+ + + + + | Result panel 43 | + + + + + + +---------+ + + | (unknown) | (no date) | (unknown) | [facility] | (no | (units | (unknown) | | | | | [facility] | value) | unknown) | | | | [facility] | | | | + + + + +---------+ + + + + | Result panel 44 | + + + + + + +---------+ + + | (unknown) | (no date) | (unknown) | [facility] | (no | (units | (unknown) | | | | [facility] | value) | unknown) | | | | [facility] | | | | + + + + +---------+ + + + + | Result panel 45 | + + + + + + +---------+ + + | (unknown) | (no date) | (unknown) | [facility] | (no | (units | (unknown) | | | | | [facility] | value) | unknown) | | | | [facility] | | | | + + + + +---------+ + + + + | Result panel 46 | + + + + + + +---------+ + + | (unknown) | (no date) | (unknown) | [facility] | (no | (units | (unknown) | | | | | [facility] | value) | unknown) | | | | [facility] | | | | + + + + +---------+ + + + + | Result panel 47 | + + + + + + +---------+ + + | (unknown) | (no date) | (unknown) | [facility] | (no | (units | (unknown) | | | | | [facility] | value) | unknown) | | | | [facility] | | | | + + + + +---------+ + + + + | Result panel 48 | + + + + + + +---------+ + + | (unknown) | (no date) | (unknown) | [facility] | (no | (units | (unknown) | | | | | [facility] | value) | unknown) | | | | [facility] | | | | + + + + +---------+ + + + + | Result panel 49 | + + + + + + +---------+ + + | (unknown) | (no date) | (unknown) | [facility] | (no | (units | (unknown) | | | | | [facility] | value) | unknown) | | | | [facility] | | | | + + + + +---------+ + + + + | Result panel 50 | + + + + + + +---------+ + + | (unknown) | (no date) | (unknown) | [facility] | (no | (units | (unknown) | | | | | [facility] | value) | unknown) | | | | [facility] | | | | + + + + +---------+ + + + + | Result panel 51 | + + + + + + +---------+ + + | (unknown) | (no date) | (unknown) | [facility] | (no | (units | (unknown) | | | | | [facility] | value) | unknown) | | | | [facility] | | | | + + + + +---------+ + + + + | Result panel 52 | + + + + + + +---------+ + + | (unknown) | (no date) | (unknown) | [facility] | (no | (units | (unknown) | | | | | [facility] | value) | unknown) | | | | [facility] | | | | + + + + +---------+ + + + + | Result panel 53 | + + + + + + +---------+ + + | (unknown) | (no date) | (unknown) | [facility] | (no | (units | (unknown) | | | | | [facility] | value) | unknown) | | | | [facility] | | | | + + + + +---------+ + + + + | Result panel 54 | + + + + + + +---------+ + + | (unknown) | (no date) | (unknown) | [facility] | (no | (units | (unknown) | | | | | [facility] | value) | unknown) | | | | [facility] | | | | + + + + +---------+ + + + + | Result panel 55 | + + + + + + +---------+ + + | (unknown) | (no date) | (unknown) | [facility] | (no | (units | (unknown) | | | | [facility] | value) | unknown) | | | | [facility] | | | | + + + + +---------+ + + + + | Result panel 56 | + + + + + + +---------+ + + | (unknown) | (no date) | (unknown) | [facility] | (no | (units | (unknown) | | | | [facility] | value) | unknown) | | | | [facility] | | | | + + + + +---------+ + + + + | Result panel 57 | + + + + + + +---------+ + + | (unknown) | (no date) | (unknown) | [facility] | (no | (units | (unknown) | | | | [facility] | value) | unknown) | | | | [facility] | | | | + + + + +---------+ + + + + | Result panel 58 | + + + + + + +---------+ + + | (unknown) | (no date) | (unknown) | [facility] | (no | (units | (unknown) | | | | [facility] | value) | unknown) | | | | [facility] | | | | + + + + +---------+ + + + + | Result panel 59 | + + + + + + +---------+ + + | (unknown) | (no date) | (unknown) | [facility] | (no | (units | (unknown) | | | | [facility] | value) | unknown) | | | | [facility] | | | | + + + + +---------+ + + + + | Result panel 60 | + + + + + + +---------+ + + | (unknown) | (no date) | (unknown) | [facility] | (no | (units | (unknown) | | | | [facility] | value) | unknown) | | | | [facility] | | | | + + + + +---------+ + + + + | Result panel 61 | + + + + + + +---------+ + + | (unknown) | (no date) | (unknown) | [facility] | (no | (units | (unknown) | | | | [facility] | value) | unknown) | | | | [facility] | | | | + + + + +---------+ + + + + | Result panel 62 | + + + + + + +---------+ + + | (unknown) | (no date) | (unknown) | [facility] | (no | (units | (unknown) | | | | [facility] | value) | unknown) | | | [facility] | | | | + + + + +---------+ + + + + | Result panel 63 | + + + + + + +---------+ + + | (unknown) | (no date) | (unknown) | [facility] | (no | (units | (unknown) | | | | [facility] | value) | unknown) | | | | [facility] | | | | + + + + +---------+ + + + + | Result panel 64 | + + + + + + +---------+ + + | (unknown) | (no date) | (unknown) | [facility] | (no | (units | (unknown) | | | | [facility] | value) | unknown) | | | | [facility] | | | | + + + + +---------+ + + + + | Result panel 65 | + + + + + + +---------+ + + | (unknown) | (no date) | (unknown) | [facility] | (no | (units | (unknown) | | | | [facility] | value) | unknown) | | | | [facility] | | | | + + + + +---------+ + + + + | Result panel 66 | + + + + + + +---------+ + + | (unknown) | (no date) | (unknown) | [facility] | (no | (units | (unknown) | | | | [facility] | value) | unknown) | | | | [facility] | | | | + + + + +---------+ + + + + | Result panel 67 | + + + + + + +---------+ + + | (unknown) | (no date) | (unknown) | [facility] | (no | (units | (unknown) | | | | [facility] | value) | unknown) | | | | [facility] | | | | + + + + +---------+ + + + + | Result panel 68 | + + + + + + +---------+ + + | (unknown) | (no date) | (unknown) | [facility] | (no | (units | (unknown) | | | | | [facility] | value) | unknown) | | | | | | [facility] | | | | + + + + +---------+ + + + + | Result panel 69 | + + + + + + +---------+ + + | (unknown) | (no date) | (unknown) | [facility] | (no | (units | (unknown) | | | | | [facility] | value) | unknown) | | | | | | [facility] | | | | + + + + +---------+ + + + + | Result panel 70 | + + + + + + +---------+ + + | (unknown) | (no date) | (unknown) | [facility] | (no | (units | (unknown) | | | | | [facility] | value) | unknown) | | | | | | [facility] | | | | + + + + +---------+ + + + + | Result panel 71 | + + + + + + +---------+ + + | (unknown) | (no date) | (unknown) | [facility] | (no | (units | (unknown) | | | | | [facility] | value) | unknown) | | | | | | [facility] | | | | + + + + +---------+ + + + + | Result panel 72 | + + + + + + +---------+ + + | (unknown) | (no date) | (unknown) | [facility] | (no | (units | (unknown) | | | | | [facility] | value) | unknown) | | | | | | [facility] | | | | + + + + +---------+ + + + + | Result panel 73 | + + + + + + +---------+ + + | (unknown) | (no date) | (unknown) | [facility] | (no | (units | (unknown) | | | | | [facility] | value) | unknown) | | | | | | [facility] | | | | + + + + +---------+ + + + + | Result panel 74 | + + + + + + +---------+ + + | (unknown) | (no date) | (unknown) | [facility] | (no | (units | (unknown) | | | | | [facility] | value) | unknown) | | | | | | [facility] | | | | + + + + +---------+ + + + + | Result panel 75 | + + + + + + +---------+ + + | (unknown) | (no date) | (unknown) | [facility] | (no | (units | (unknown) | | | | | [facility] | value) | unknown) | | | | | [facility] | | | | + + + + +---------+ + + + + | Result panel 76 | + + + + + + +---------+ + + | (unknown) | (no date) | (unknown) | [facility] | (no | (units | (unknown) | | | | | [facility] | value) | unknown) | | | | | [facility] | | | | + + + + +---------+ + + + + | Result panel 77 | + + + + + + +---------+ + + | (unknown) | (no date) | (unknown) | [facility] | (no | (units | (unknown) | | | | [facility] | value) | unknown) | | | | | [facility] | | | | + + + + +---------+ + + + + | Result panel 78 | + + + + + + +---------+ + + | (unknown) | (no date) | (unknown) | [facility] | (no | (units | (unknown) | | | | | [facility] | value) | unknown) | | | | | [facility] | | | | + + + + +---------+ + + + + | Result panel 79 | + + + + + + +---------+ + + | (unknown) | (no date) | (unknown) | [facility] | (no | (units | (unknown) | | | | | [facility] | value) | unknown) | | | | | [facility] | | | | + + + + +---------+ + + + + | Result panel 80 | + + + + + + +---------+ + + | (unknown) | (no date) | (unknown) | [facility] | (no | (units | (unknown) | | | | | [facility] | value) | unknown) | | | | | [facility] | | | | + + + + +---------+ + + + + | Result panel 81 | + + + + + + +---------+ + + | (unknown) | (no date) | (unknown) | [facility] | (no | (units | (unknown) | | | | [facility] | value) | unknown) | | | | | [facility] | | | | + + + + +---------+ + + + + | Result panel 82 | + + + + + + +---------+ + + | (unknown) | (no date) | (unknown) | [facility] | (no | (units | (unknown) | | | | [facility] | value) | unknown) | | | | | [facility] | | | | + + + + +---------+ + + + + | Result panel 83 | + + + + + + +---------+ + + | (unknown) | (no date) | (unknown) | [facility] | (no | (units | (unknown) | | | | [facility] | value) | unknown) | | | | | [facility] | | | | + + + + +---------+ + + + + | Result panel 84 | + + + + + + +---------+ + + | (unknown) | (no date) | (unknown) | [facility] | (no | (units | (unknown) | | | | [facility] | value) | unknown) | | | | | [facility] | | | | + + + + +---------+ + + + + | Result panel 85 | + + + + + + +---------+ + + | (unknown) | (no date) | (unknown) | [facility] | (no | (units | (unknown) | | | | | [facility] | value) | unknown) | | | | | [facility] | | | | + + + + +---------+ + + + + | Result panel 86 | + + + + + + +---------+ + + | (unknown) | (no date) | (unknown) | [facility] | (no | (units | (unknown) | | | | | [facility] | value) | unknown) | | | | | [facility] | | | | + + + + +---------+ + + + + | Result panel 87 | + + + + + + +---------+ + + | (unknown) | (no date) | (unknown) | [facility] | (no | (units | (unknown) | | | | | [facility] | value) | unknown) | | | | | [facility] | | | | + + + + +---------+ + + + + | Result panel 88 | + + + + + + +---------+ + + | (unknown) | (no date) | (unknown) | [facility] | (no | (units | (unknown) | | | | | [facility] | value) | unknown) | | | | | [facility] | | | | + + + + +---------+ + + + + | Result panel 89 | + + + + + + +---------+ + + | (unknown) | (no date) | (unknown) | [facility] | (no | (units | (unknown) | | | | | [facility] | value) | unknown) | | | | | [facility] | | | | + + + + +---------+ + + + + | Result panel 90 | + + + + + + +---------+ + + | (unknown) | (no date) | (unknown) | [facility] | (no | (units | (unknown) | | | | | [facility] | value) | unknown) | | | | | [facility] | | | | + + + + +---------+ + + + + | Result panel 91 | + + + + + + +---------+ + + | (unknown) | (no date) | (unknown) | [facility] | (no | (units | (unknown) | | | | | [facility] | value) | unknown) | | | | | [facility] | | | | + + + + +---------+ + + + + | Result panel 92 | + + + + + + +---------+ + + | (unknown) | (no date) | (unknown) | [facility] | (no | (units | (unknown) | | | | | [facility] | value) | unknown) | | | | | [facility] | | | | + + + + +---------+ + + + + | Result panel 93 | + + + + + + +---------+ + + | (unknown) | (no date) | (unknown) | [facility] | (no | (units | (unknown) | | | | | [facility] | value) | unknown) | | | | | [facility] | | | | + + + + +---------+ + + + + | Result panel 94 | + + + + + + +---------+ + + | (unknown) | (no date) | (unknown) | [facility] | (no | (units | (unknown) | | | | | [facility] | value) | unknown) | | | | | [facility] | | | | + + + + +---------+ + + + + | Result panel 95 | + + + + + + +---------+ + + | (unknown) | (no date) | (unknown) | [facility] | (no | (units | (unknown) | | | | | [facility] | value) | unknown) | | | | [facility] | | | | + + + + +---------+ + + + + | Result panel 96 | + + + + + + +---------+ + + | (unknown) | (no date) | (unknown) | [facility] | (no | (units | (unknown) | | | | | [facility] | value) | unknown) | | | | | [facility] | | | | + + + + +---------+ + + + + | Result panel 97 | + + + + + + +---------+ + + | (unknown) | (no date) | (unknown) | [facility] | (no | (units | (unknown) | | | | | [facility] | value) | unknown) | | | | | [facility] | | | | + + + + +---------+ + + + + | Result panel 98 | + + + + + + +---------+ + + | (unknown) | (no date) | (unknown) | [facility] | (no | (units | (unknown) | | | | | [facility] | value) | unknown) | | | | | [facility] | | | | + + + + +---------+ + + + + | Result panel 99 | + + + + + + +---------+ + + | (unknown) | (no date) | (unknown) | [facility] | (no | (units | (unknown) | | | | | [facility] | value) | unknown) | | | | | [facility] | | | | + + + + +---------+ + + + + | Result panel 100 | + + + + + + +---------+ + + | (unknown) | (no date) | (unknown) | [facility] | (no | (units | (unknown) | | | | | [facility] | value) | unknown) | | | | | [facility] | | | | + + + + +---------+ + + + + | Result panel 101 | + + + + + + +---------+ + + | (unknown) | (no date) | (unknown) | [facility] | (no | (units | (unknown) | | | | | [facility] | value) | unknown) | | | | | [facility] | | | | + + + + +---------+ + + + + | Result panel 102 | + + + + + + +---------+ + + | (unknown) | (no date) | (unknown) | [facility] | (no | (units | (unknown) | | | | | [facility] | value) | unknown) | | | | | [facility] | | | | + + + + +---------+ + + + + | Result panel 103 | + + + + + + +---------+ + + | (unknown) | (no date) | (unknown) | [facility] | (no | (units | (unknown) | | | | | [facility] | value) | unknown) | | | | | [facility] | | | | + + + + +---------+ + + + + | Result panel 104 | + + + + + + +---------+ + + | (unknown) | (no date) | (unknown) | [facility] | (no | (units | (unknown) | | | | | [facility] | value) | unknown) | | | | | [facility] | | | | + + + + +---------+ + + + + | Result panel 105 | + + + + + + +---------+ + + | (unknown) | (no date) | (unknown) | [facility] | (no | (units | (unknown) | | | | | [facility] | value) | unknown) | | | | | [facility] | | | | + + + + +---------+ + + + + | Result panel 106 | + + + + + + +---------+ + + | (unknown) | (no date) | (unknown) | [facility] | (no | (units | (unknown) | | | | | [facility] | value) | unknown) | | | | | [facility] | | | | + + + + +---------+ + + + + | Result panel 107 | + + + + + + +---------+ + + | (unknown) | (no date) | (unknown) | [facility] | (no | (units | (unknown) | | | | | [facility] | value) | unknown) | | | | | [facility] | | | | + + + + +---------+ + + + + | Result panel 108 | + + + + + + +---------+ + + | (unknown) | (no date) | (unknown) | [facility] | (no | (units | (unknown) | | | | | [facility] | value) | unknown) | | | | | [facility] | | | | + + + + +---------+ + + + + | Result panel 109 | + + + + + + +---------+ + + | (unknown) | (no date) | (unknown) | [facility] | (no | (units | (unknown) | | | | | [facility] | value) | unknown) | | | | | [facility] | | | | + + + + +---------+ + + + + | Result panel 110 | + + + + + + +---------+ + + | (unknown) | (no date) | (unknown) | [facility] | (no | (units | (unknown) | | | | | [facility] | value) | unknown) | | | | | [facility] | | | | + + + + +---------+ + + + + | Result panel 111 | + + + + + + +---------+ + + | (unknown) | (no date) | (unknown) | [facility] | (no | (units | (unknown) | | | | | [facility] | value) | unknown) | | | | | [facility] | | | | + + + + +---------+ + + + + | Result panel 112 | + + + + + + +---------+ + + | (unknown) | (no date) | (unknown) | [facility] | (no | (units | (unknown) | | | | | [facility] | value) | unknown) | | | | | [facility] | | | | + + + + +---------+ + + + + | Result panel 113 | + + + + + + +---------+ + + | (unknown) | (no date) | (unknown) | [facility] | (no | (units | (unknown) | | | | | [facility] | value) | unknown) | | | | | [facility] | | | | + + + + +---------+ + + + + | Result panel 114 | + + + + + + +---------+ + + | (unknown) | (no date) | (unknown) | [facility] | (no | (units | (unknown) | | | | | [facility] | value) | unknown) | | | | | [facility] | | | | + + + + +---------+ + + + + | Result panel 115 | + + + + + + +---------+ + + | (unknown) | (no date) | (unknown) | [facility] | (no | (units | (unknown) | | | | | [facility] | value) | unknown) | | | | [facility] | | | | + + + + +---------+ + + + + | Result panel 116 | + + + + + + +---------+ + + | (unknown) | (no date) | (unknown) | [facility] | (no | (units | (unknown) | | | | | [facility] | value) | unknown) | | | | [facility] | | | | + + + + +---------+ + + + + | Result panel 117 | + + + + + + +---------+ + + | (unknown) | (no date) | (unknown) | [facility] | (no | (units | (unknown) | | | | | [facility] | value) | unknown) | | | | | [facility] | | | | + + + + +---------+ + + + + | Result panel 118 | + + + + + + +---------+ + + | (unknown) | (no date) | (unknown) | [facility] | (no | (units | (unknown) | | | | | [facility] | value) | unknown) | | | | | [facility] | | | | + + + + +---------+ + + + + | Result panel 119 | + + + + + + +---------+ + + | (unknown) | (no date) | (unknown) | [facility] | (no | (units | (unknown) | | | | | [facility] | value) | unknown) | | | | | [facility] | | | | + + + + +---------+ + + + + | Result panel 120 | + + + + + + +---------+ + + | (unknown) | (no date) | (unknown) | [facility] | (no | (units | (unknown) | | | | | [facility] | value) | unknown) | | | | | [facility] | | | | + + + + +---------+ + + + + | Result panel 121 | + + + + + + +---------+ + + | (unknown) | (no date) | (unknown) | [facility] | (no | (units | (unknown) | | | | | [facility] | value) | unknown) | | | | | [facility] | | | | + + + + +---------+ + + + + | Result panel 122 | + + + + + + +---------+ + + | (unknown) | (no date) | (unknown) | [facility] | (no | (units | (unknown) | | | | | [facility] | value) | unknown) | | | | | [facility] | | | | + + + + +---------+ + + + + | Result panel 123 | + + + + + + +---------+ + + | (unknown) | (no date) | (unknown) | [facility] | (no | (units | (unknown) | | | | | [facility] | value) | unknown) | | | | | [facility] | | | | + + + + +---------+ + + + + | Result panel 124 | + + + + + + +---------+ + + | (unknown) | (no date) | (unknown) | [facility] | (no | (units | (unknown) | | | | | [facility] | value) | unknown) | | | | | [facility] | | | | + + + + +---------+ + + + + | Result panel 125 | + + + + + + +---------+ + + | (unknown) | (no date) | (unknown) | [facility] | (no | (units | (unknown) | | | | | [facility] | value) | unknown) | | | | | [facility] | | | | + + + + +---------+ + + + + | Result panel 126 | + + + + + + +---------+ + + | (unknown) | (no date) | (unknown) | [facility] | (no | (units | (unknown) | | | | | [facility] | value) | unknown) | | | | | [facility] | | | | + + + + +---------+ + + + + | Result panel 127 | + + + + + + +---------+ + + | (unknown) | (no date) | (unknown) | [facility] | (no | (units | (unknown) | | | | | [facility] | value) | unknown) | | | | | [facility] | | | | + + + + +---------+ + + + + | Result panel 128 | + + + + + + +---------+ + + | (unknown) | (no date) | (unknown) | [facility] | (no | (units | (unknown) | | | | | [facility] | value) | unknown) | | | | | [facility] | | | | + + + + +---------+ + + + + | Result panel 129 | + + + + + + +---------+ + + | (unknown) | (no date) | (unknown) | [facility] | (no | (units | (unknown) | | | | [facility] | value) | unknown) | | | | | [facility] | | | | + + + + +---------+ + + + + | Result panel 130 | + + + + + + +---------+ + + | (unknown) | (no date) | (unknown) | [facility] | (no | (units | (unknown) | | | | [facility] | value) | unknown) | | | | | [facility] | | | | + + + + +---------+ + + + + | Result panel 131 | + + + + + + +---------+ + + | (unknown) | (no date) | (unknown) | [facility] | (no | (units | (unknown) | | | | [facility] | value) | unknown) | | | | | [facility] | | | | + + + + +---------+ + + + + | Result panel 132 | + + + + + + +---------+ + + | (unknown) | (no date) | (unknown) | [facility] | (no | (units | (unknown) | | | | [facility] | value) | unknown) | | | | [facility] | | | | + + + + +---------+ + + + + | Result panel 133 | + + + + + + +---------+ + + | (unknown) | (no date) | (unknown) | [facility] | (no | (units | (unknown) | | | | [facility] | value) | unknown) | | | | | [facility] | | | | + + + + +---------+ + + + + | Result panel 134 | + + + + + + +---------+ + + | (unknown) | (no date) | (unknown) | [facility] | (no | (units | (unknown) | | | | [facility] | value) | unknown) | | | | [facility] | | | | + + + + +---------+ + + + + | Result panel 135 | + + + + + + +---------+ + + | (unknown) | (no date) | (unknown) | [facility] | (no | (units | (unknown) | | | | [facility] | value) | unknown) | | | | [facility] | | | | + + + + +---------+ + + + + | Result panel 136 | + + + + + + +---------+ + + | (unknown) | (no date) | (unknown) | [facility] | (no | (units | (unknown) | | | | [facility] | value) | unknown) | | | | [facility] | | | | + + + + +---------+ + + + + | Result panel 137 | + + + + + + +---------+ + + | (unknown) | (no date) | (unknown) | [facility] | (no | (units | (unknown) | | | | [facility] | value) | unknown) | | | | [facility] | | | | + + + + +---------+ + + + + | Result panel 138 | + + + + + + +---------+ + + | (unknown) | (no date) | (unknown) | [facility] | (no | (units | (unknown) | | | | [facility] | value) | unknown) | | | | [facility] | | | | + + + + +---------+ + + + + | Result panel 139 | + + + + + + +---------+ + + | (unknown) | (no date) | (unknown) | [facility] | (no | (units | (unknown) | | | | [facility] | value) | unknown) | | | | [facility] | | | | + + + + +---------+ + + + + | Result panel 140 | + + + + + + +---------+ + + | (unknown) | (no date) | (unknown) | [facility] | (no | (units | (unknown) | | | | [facility] | value) | unknown) | | | | [facility] | | | | + + + + +---------+ + + + + | Result panel 141 | + + + + + + +---------+ + + | (unknown) | (no date) | (unknown) | [facility] | (no | (units | (unknown) | | | | [facility] | value) | unknown) | | | | [facility] | | | | + + + + +---------+ + + Social History No information. Vital Signs + + + +---------+ | date | measurement | value | units | + + + +---------+ | 2022-01-05 00:00 | BMI | 40.5 | kg/m2 | + + + +---------+ | 2022-01-05 00:00 | BP_diastolic | 70 | mmHg | + + + +---------+ | 2022-01-05 00:00 | BP_systolic | 125 | mmHg | + + + +---------+ | 2022-01-05 00:00 | heart_rate | 92 | /min | + + + +---------+ | 2022-01-05 00:00 | height_metric | 162.56 | cm | + + + +---------+ | 2022-01-05 00:00 | height_standard | 64 | in | + + + +---------+ | 2022-01-05 00:00 | o2_saturation | 92 | % | + + + +---------+ | 2022-01-05 00:00 | respiration_rate | 20 | /min | + + + +---------+ | 2022-01-05 00:00 | temperature_metric | 36.33 | C | | | | | | + + + +---------+ | 2022-01-05 00:00 | | 97.4 | F | | | temperature_standar | | | | | d | | | + + + +---------+ | 2022-01-05 00:00 | weight_metric | 107.1 | kg | + + + +---------+ | 2022-01-05 00:00 | weight_standard | 236.12 | lb | + + + +---------+ | 2022-01-13 00:00 | BMI | 40.4 | kg/m2 | + + + +---------+ | 2022-01-13 00:00 | height_metric | 162.56 | cm | + + + +---------+ | 2022-01-13 00:00 | height_standard | 64 | in | + + + +---------+ | 2022-01-13 00:00 | weight_metric | 106.8 | kg | + + + +---------+ | 2022-01-13 00:00 | weight_standard | 235.45 | lb | + + + +---------+ | 2022-01-15 00:00 | BP_diastolic | 82 | mmHg | + + + +---------+ | 2022-01-15 00:00 | BP_systolic | 137 | mmHg | + + + +---------+ | 2022-01-15 00:00 | heart_rate | 86 | /min | + + + +---------+ | 2022-01-15 00:00 | o2_saturation | 96 | % | + + + +---------+ | 2022-01-15 00:00 | respiration_rate | 16 | /min | + + + +---------+ | 2022-01-15 00:00 | temperature_metric | 36.28 | C | | | | | | + + + +---------+ | 2022-01-15 00:00 | | 97.3 | F | | | temperature_standar | | | | | d | | | + + + +---------+"
--- OUTSIDE RECORDS SUMMARY | ~2022-09-13 | XMS | Continuity of Care Document ---
Demographics + + + | Address | [address] | | | [place] [address] | + + + | Preferred Language | Unknown | + + + | Marital Status | Never | + + + | Amish Affiliation | Unknown | + + + | Race | White | + + + | Ethnic Group | Not or | + + + Author + + + | Author | [facility] | + + + | Organization | [facility] | + + + | Address | [address] | | | [place] [address] | + + + | Phone | | + + + Care Team Providers + + + + | Care [employer]er Name | Role | Phone | + [...] + | 2022-01-15 00:00 | APIXABAN | [facility] | + + + + | 2022-01-05 00:00 | Ergocalciferol (Vitamin | [facility] | | | D2) | | + + + + | 2022-01-15 00:00 | Ergocalciferol (Vitamin | [facility] | | | D2) | | + + + + | 2017-10-01 00:00 | IPRATROPIUM/ALBUTEROL | [facility] | | | SULFATE | | + + + + | 2017-10-01 00:00 | IPRATROPIUM/ALBUTEROL | [facility] | | | SULFATE | | + + + + | 2022-01-05 00:00 | Carboxymethylcellulose | [facility] | | | Sodium | | + + + + | 2022-01-15 00:00 | Carboxymethylcellulose | [facility] | | | Sodium | | + + + + | 2022-01-05 00:00 | FLUTICASONE PROPIONATE 50 | [facility] | | | MCG | | + + + + | 2022-01-15 00:00 | FLUTICASONE PROPIONATE 50 | [facility] | | | MCG | | + + + + | 2022-01-05 00:00 | ALLOPURINOL | [facility] | + + + + | 2022-01-15 00:00 | ALLOPURINOL | [facility] | + + + + | 2022-01-05 00:00 | Hydrocortisone | [facility] | + + + + | 2022-01-15 00:00 | Hydrocortisone | [facility] | + + + + | 2017-10-01 00:00 | MAGNESIUM OXIDE | [facility] | + + + + | 2017-10-01 00:00 | MAGNESIUM OXIDE | [facility] | + + + + | 2022-01-05 00:00 | ACETAMINOPHEN | [facility] | + + + + | 2022-01-15 00:00 | ACETAMINOPHEN | [facility] | + + + + | 2022-01-05 00:00 | CALCIUM CARBONATE | [facility] | + + + + | 2022-01-15 00:00 | CALCIUM CARBONATE | [facility] | + + + + | 2022-01-05 00:00 | CHOLECALCIFEROL (VITAMIN | [facility] | | | D3) | | + + + + | 2022-01-15 00:00 | CHOLECALCIFEROL (VITAMIN | [facility] | | | D3) | | + + + + | 2017-10-01 00:00 | NYSTATIN | [facility] | + + + + | 2017-10-01 00:00 | NYSTATIN | [facility] | + + + + | 2022-01-05 00:00 | NYSTATIN | [facility] | + + + + | 2022-01-15 00:00 | NYSTATIN | [facility] | + + + + | 2022-01-05 00:00 | FERROUS FUMARATE | [facility] | + + + + | 2022-01-15 00:00 | FERROUS FUMARATE | [facility] | + + + + | 2022-01-05 00:00 | FAMOTIDINE | [facility] | + + + + | 2022-01-15 00:00 | FAMOTIDINE | [facility] | + + + + | 2022-01-05 00:00 | AMLODIPINE BESYLATE | [facility] | + + + + | 2022-01-15 00:00 | AMLODIPINE BESYLATE | [facility] | + + + + | 2022-01-05 00:00 | ASPIRIN | [facility] | + + + + | 2022-01-15 00:00 | ASPIRIN | [facility] | + + + + | 2022-01-05 00:00 | Clotrimazole | [facility] | + + + + | 2022-01-15 00:00 | Clotrimazole | [facility] | + + + + | 2022-01-05 00:00 | CYANOCOBALAMIN (VITAMIN | [facility] | | | B-12) | | + + + + | 2022-01-15 00:00 | CYANOCOBALAMIN (VITAMIN | [facility] | | | B-12) | | + + + + | 2022-01-05 00:00 | FUROSEMIDE | [facility] | + + + + | 2022-01-15 00:00 | FUROSEMIDE | [facility] | + + + + | 2022-01-05 00:00 | GLIPIZIDE | [facility] | + + + + | 2017-10-01 00:00 | FUROSEMIDE | [facility] | + + + + | 2017-10-01 00:00 | FUROSEMIDE | [facility] | + + + + | 2022-01-05 00:00 | LATANOPROST | [facility] | + + + + | 2022-01-15 00:00 | LATANOPROST | [facility] | + + + + | 2017-10-01 00:00 | POTASSIUM CHLORIDE | [facility] | + + + + | 2017-10-01 00:00 | POTASSIUM CHLORIDE | [facility] | + + + + | 2017-10-01 00:00 | ALBUTEROL SULFATE | [facility] | + + + + | 2017-10-01 00:00 | ALBUTEROL SULFATE | [facility] | + + + + | 2022-01-05 00:00 | Oseltamivir Phosphate | [facility] | + + + + | 2022-01-05 00:00 | ASPIRIN | [facility] | + + + + | 2022-01-15 00:00 | ASPIRIN | [facility] | + + + + | 2017-10-01 00:00 | DICLOFENAC SODIUM | [facility] | + + + + | 2017-10-01 00:00 | DICLOFENAC SODIUM | [facility] | + + + + | 2022-01-05 00:00 | HYDROCODONE | [facility] | | | BIT/ACETAMINOPHEN | | + + + + | 2022-01-15 00:00 | HYDROCODONE | [facility] | | | BIT/ACETAMINOPHEN | | + + + + | 2022-01-05 00:00 | TROSPIUM CHLORIDE | [facility] | + + + + | 2022-01-15 00:00 | TROSPIUM CHLORIDE | [facility] | + + + + | 2022-01-05 00:00 | METOPROLOL SUCCINATE | [facility] | + + + + | 2022-01-05 00:00 | METOPROLOL SUCCINATE | [facility] | + + + + | 2022-01-15 00:00 | METOPROLOL SUCCINATE | [facility] | + + + + | 2022-01-05 00:00 | PRAVASTATIN SODIUM | [facility] | + + + + | 2022-01-15 00:00 | PRAVASTATIN SODIUM | [facility] | + + + + | 2022-01-05 00:00 | LEVOTHYROXINE SODIUM | [facility] | + + + + | 2022-01-15 00:00 | LEVOTHYROXINE SODIUM | [facility] | + + + + | 2022-01-05 00:00 | LOPERAMIDE HCL | [facility] | + + + + | 2022-01-15 00:00 | LOPERAMIDE HCL | [facility] | + + + + Problems + + + + | date | description | facility | + + + + | 2015-08-22 00:00 | CHF (congestive heart | [facility] | | | failure) | | + + + + | 2015-08-22 00:00 | CHF (congestive heart | [facility] | | | failure) | | + + + + | 2017-09-25 00:00 | Pulmonary edema | [facility] | + + + + | 2017-09-25 00:00 | Pulmonary edema | [facility] | + + + + | 2017-09-25 00:00 | Shortness of breath | [facility] | + + + + | 2017-09-25 00:00 | Shortness of breath | [facility] | + + + + | 2019-09-03 00:00 | Contusion of left foot | [facility] | + + + + | 2019-09-03 00:00 | Contusion of left foot | [facility] | + + + + | 2022-01-02 00:00 | Acute on chronic diastolic | [facility] | | | congestive heart failure | | + + + + | 2022-01-02 00:00 | Acute on chronic diastolic | [facility] | | | congestive heart failure | | + + + + | 2022-01-03 00:00 | Congestive heart failure | [facility] | + + + + | 2022-01-03 00:00 | Congestive heart failure | [facility] | + + + + | 2022-01-03 00:00 | Influenza due to influenza | [facility] | | | virus, type A, human | | + + + + | 2022-01-03 00:00 | Influenza due to influenza | [facility] | | | virus, type A, human | | + + + + | 2022-01-03 00:00 | Acute exacerbation of | [facility] | | | chronic obstructive | | | | pulmonary disease | | + + + + | 2022-01-03 00:00 | Acute exacerbation of | [facility] | | | chronic obstructive [...] | (unknown) | | | | | Dealno | value) | unknown) | | | [...]
[~2022-09-13 17:32] MED LIST changes: +ELIQUIS5 MG PO; +METOPROLOL SUCC50 MG PO
[2022-09-13] MEDS ORDERED: CEPHALEXIN500 MG PO (21:04)
[2022-09-13 22:28] VITALS: BP 116/70
== END 2022-09-13 22:33 | disposition home or self-care (01) ==
LOC: ED 17:32
DX: N39.0 Urinary tract infection, site not specified (principal); E86.0 Dehydration; J44.9 Chronic obstructive pulmonary disease, unspecified; E11.9 Type 2 diabetes mellitus without complications; I10 Essential (primary) hypertension; Z99.81 Dependence on supplemental oxygen; Z87.891 Personal history of nicotine dependence; Z79.899 Other long term (current) drug therapy; Z79.01 Long term (current) use of anticoagulants; Z79.82 Long term (current) use of aspirin
CPT/HCPCS: 36415; 51701; 71045; 80053; 81001; 85025; 87088; 99284 25; A9270; J7040; J7121

== ENCOUNTER 2022-12-18 13:08 | Emergency (ER) | payer MEDICARE, OTHER ==
[~2022-12-18] VITALS: Ht 162.6 cm; Wt 73.9 kg
[~2022-12-18 13:08] MED LIST changes: +CEPHALEXIN500 MG PO
[2022-12-18] MEDS ORDERED: FOLIC ACID1 MG PO (13:31)
[2022-12-18 14:21] LABS: INFLUENZA B NAA NEGATIVE (NEGATIVE); RESPIRATORY SYNCYTIAL VIR NAA NEGATIVE (NEGATIVE)
[2022-12-18 16:19] LABS: BASOPHILS 1.1 % (0-2); EOSINOPHILS 0.9 % (0-6); HEMATOCRIT 38.9 % (35.0-50.0); HEMOGLOBIN 12.7 g/dL (12.0-18.0); LYMPHOCYTES 19.6 % (24-44); MCH 32.6 (27-36); MCHC 32.5 g/dl (30-36); MCV 100.2 fl (81-99); MONOCYTES 7.5 % (0-12); NEUTROPHILS 70.9 % (39-80); PLATELET COUNT 375 K/uL (140-440); RBC 3.88 M/ul (4.3-5.7); RDW 16.1 (10.5-15.0)
[2022-12-18 16:43] LABS: ALBUMIN 2.4 g/dL (3.4-5.0); ALBUMIN/GLOBULIN RATIO 0.52 (1.1-2.4); BILIRUBIN, TOTAL 0.8 ng/dL (0.2-1.0); BUN/CREATININE RATIO 18.5 (6.0-28.6); CALCIUM 9.3 mg/dL (8.5-10.1); CREATININE, SERUM 2.27 mg/dL (0.55-1.02); MAGNESIUM 1.6 mg/dL (1.8-2.4)
[2022-12-18 18:18] VITALS: BP 128/108
== END 2022-12-18 18:18 | disposition home or self-care (01) ==
LOC: ED 13:08
PROVIDERS: Emergency Medicine
DX: R19.7 Diarrhea, unspecified (principal); E87.6 Hypokalemia; I10 Essential (primary) hypertension; E11.9 Type 2 diabetes mellitus without complications; J44.9 Chronic obstructive pulmonary disease, unspecified; Z20.822 Contact with and (suspected) exposure to COVID-19; Z87.891 Personal history of nicotine dependence; Z79.01 Long term (current) use of anticoagulants; Z79.899 Other long term (current) drug therapy; Z79.890 Hormone replacement therapy
CPT/HCPCS: 36415; 80053; 83735; 85025; 87502; A9270; J7040; U0002

== ENCOUNTER 2023-02-25 11:40 | Emergency (ER) | payer MEDICARE, OTHER ==
[~2023-02-25] VITALS: Ht 162.6 cm; Wt 74.3 kg
[~2023-02-25 11:40] MED LIST changes: +FOLIC ACID1 MG PO
[2023-02-25 12:37] LABS: BASOPHILS 1.1 % (0-2); EOSINOPHILS 2.2 % (0-6); HEMATOCRIT 41.7 % (35.0-50.0); HEMOGLOBIN 13.3 g/dL (12.0-18.0); LYMPHOCYTES 12.1 % (24-44); MCH 32.4 (27-36); MCHC 31.7 g/dl (30-36); MCV 101.9 fl (81-99); NEUTROPHILS 79.6 % (39-80); PLATELET COUNT 430 K/uL (140-440); RDW 15.7 (10.5-15.0)
[2023-02-25 12:47] LABS: BILIRUBIN, URINE NEGATIVE (negative); BLOOD/HGB, URINE LARGE (Negative); KETONE, URINE TRACE (Negative); LEUK ESTERASE, URINE MODERATE (negative); NITRITE, URINE NEGATIVE (negative); PH, URINE 6.5 (5-7)
[2023-02-25 12:54] LABS: ALBUMIN 2.6 g/dL (3.4-5.0); ALBUMIN/GLOBULIN RATIO 0.5 (1.1-2.4); ANION GAP 10.5 (7-21); BILIRUBIN, TOTAL 0.8 ng/dL (0.2-1.0); BUN/CREATININE RATIO 20.86 (6.0-28.6); CALCIUM 9.5 mg/dL (8.5-10.1); CREATININE, SERUM 2.78 mg/dL (0.55-1.02); POTASSIUM 3.5 mmol/L (3.5-5.1); PROTEIN, TOTAL 7.8 g/dL (6.4-8.2)
[2023-02-25 13:01] LABS: WHITE BLOOD CELLS, URINE >50 /HPF (0-5)
[2023-02-25 13:02] LABS: BACTERIA, URINE 1+ /hpf (negative); CASTS, URINE NONE SEEN \\lpf; CRYSTALS, URINE NONE SEEN (0-1+); EPITHELIAL CELLS, URINE SQUAMOUS 1+ /lpf (0-1+); REFLEX CULTURE, URINE Yes (No)
[2023-02-25 13:03] LABS: COLLECTION TYPE, URINE CATH
[2023-02-25 13:33] LABS: INFLUENZA B NAA NEGATIVE (NEGATIVE); RESPIRATORY SYNCYTIAL VIR NAA NEGATIVE (NEGATIVE)
[2023-02-25] MEDS ORDERED: CEFDINIR300 MG PO (15:02)
[2023-02-25 15:30] VITALS: BP 104/67
--- NOTE | 2023-02-25 22:10 | EKG ---
[facility] [address] [facility] [place] [address] Signed Sinus rhythm with 1st degree AV block Right bundle branch block , plus right ventricular hypertrophy T wave abnormality, consider inferolateral ischemia Abnormal ECG When compared with ECG of 14-JAN-2022 09:49, Sinus rhythm has replaced Atrial flutter Borderline criteria for Lateral infarct are no longer present Confirmed by Raghu Mcgraw MD () on 02/25/2023 10:09:48 PM Electronically Signed By: RAGHU MCGARW MD 02/25/232209 PATIENT NAME: BERYL MANCERA I Electrocardiogram DATE OF : 48 PHYSICIAN: RAGHU MCGRAW MD REPORT #: [id number] REPORT IS CONFIDENTIAL AND NOT TO BE RELEASED WITHOUT AUTHORIZATION
== END 2023-02-25 15:30 | disposition home or self-care (01) ==
LOC: ED 11:40
PROVIDERS: Emergency Medicine
DX: N39.0 Urinary tract infection, site not specified (principal); J44.9 Chronic obstructive pulmonary disease, unspecified; I10 Essential (primary) hypertension; E11.9 Type 2 diabetes mellitus without complications; Z99.81 Dependence on supplemental oxygen; Z87.891 Personal history of nicotine dependence; Z79.899 Other long term (current) drug therapy; Z20.822 Contact with and (suspected) exposure to COVID-19
CPT/HCPCS: 36415; 51701; 51798; 71045; 80053; 81001; 85025; 87088; 87502; 93005; 93010; 99284-25; C9803; J0696; J7040; U0002

== ENCOUNTER 2024-01-30 19:09 | Inpatient (IN) | payer MEDICARE, OTHER ==
[~2024-01-30] VITALS: Ht 162.6 cm; Wt 80.0 kg
[~2024-01-30 19:09] MED LIST changes: +CEFDINIR300 MG PO; +DESITIN57 GM TOP; -MAPAP500 MG PO; +METOPROLOL TART25 MG PO; +PANTOPRAZOLE SO40 MG PO; +SENNA8.6 MG PO; +TYLENOL EXTRA500 MG PO
[2024-01-30 19:55] LABS: HEMATOCRIT 46.7 % (35.0-50.0); HEMOGLOBIN 15.1 g/dL (12.0-18.0); MCH 32.7 (27-36); MCHC 32.3 g/dl (30-36); MCV 101.1 fl (81-99); PLATELET COUNT 229 K/uL (140-440); RBC 4.62 M/ul (4.3-5.7); RDW 18.4 (10.5-15.0)
[2024-01-30 20:08] LABS: EOSINOPHILS, MANUAL DIFF 1; LYMPHOCYTES, MANUAL DIFF 25; MONOCYTES, MANUAL DIFF 6; NEUTROPHILS, MANUAL DIFF 68
[2024-01-30 20:33] LABS: BILIRUBIN, URINE NEGATIVE (negative); BLOOD/HGB, URINE SMALL (Negative); KETONE, URINE NEGATIVE (Negative); LEUK ESTERASE, URINE MODERATE (negative); NITRITE, URINE POSITIVE (negative)
[2024-01-30 20:37] LABS: ALBUMIN 2.6 g/dL (3.4-5.0); ALBUMIN/GLOBULIN RATIO 0.63 (1.1-2.4); ANION GAP 17.3 (7-21); BILIRUBIN, TOTAL 1.4 ng/dL (0.2-1.0); BUN/CREATININE RATIO 7.48 (6.0-28.6); CALCIUM 8.6 mg/dL (8.5-10.1); CREATININE, SERUM 4.54 mg/dL (0.55-1.02); MAGNESIUM 1.9 mg/dL (1.8-2.4); POTASSIUM 4.3 mmol/L (3.5-5.1); PROTEIN, TOTAL 6.7 g/dL (6.4-8.2)
[2024-01-30 20:41] LABS: BACTERIA, URINE 4+ /hpf (negative); CRYSTALS, URINE NONE SEEN (0-1+); EPITHELIAL CELLS, URINE SQUAMOUS 2+ /lpf (0-1+); WHITE BLOOD CELLS, URINE >50 /HPF (0-5)
[2024-01-30 20:42] LABS: CASTS, URINE NONE SEEN \\lpf; COLLECTION TYPE, URINE CLEAN CATCH; REFLEX CULTURE, URINE No (No)
[2024-01-30] MEDS ORDERED: PIPERACILLIN/TAZOBACTAM 3.375 GM in DEXTROSE 5% 100 ML IV ONE (21:15)
[2024-01-30] MEDS ORDERED: DEXTROSE 5% 100 ML IV ONE (21:27)
[2024-01-30] MEDS ORDERED: ondansetron HCL 4 MG/2 ML VIAL IV PRN (21:30)
[2024-01-30] MEDS ORDERED: ACETAMINOPHEN 325 MG TAB PO PRN (21:30)
[2024-01-30 22:07] LABS: LACTIC ACID, BLOOD 1.6 mmol/L (0.4-2.0)
--- NOTE | 2024-01-30 22:35 | NUR ---
bedside report received from ed rn shahid choi awake and resting in bed, transferred from ed stretcher to ms bed via 3pa with transfer sheet. propellant charge zone assembler in room completing admission, call light in reach.
[2024-01-30 22:56] VITALS: BP 93/65
[2024-01-30] MEDS ORDERED: LANOXIN125 MCG PO (23:32)
[2024-01-30] MEDS ORDERED: VAZALORE81 MG PO (23:33)
--- NOTE | 2024-01-30 23:54 | NUR ---
DR MAZARIEGOS UPDATED ON CRITICAL DIGOXIN LEVEL- 5.0. ALSO DISCUSSED TRENDING TROPONIN LEVELS IN ED, TELEPHONE ORDER READ BACK FOR 0600 TROPONIN LEVEL TO BE DRAWN. ALSO UPDATED MD ON MOST RECENT BP ON ARRIVAL TO MS FLOOR-93/65, MAP OF 72 AND VARYING HR PER TELE. TRANFERRED TO LOGGING ENGINEER DIONNA TO FURTHER DISCUSS TRENDING TELE. SUPERVISOR BOILERMAKING SHOPKARY CORONEL WELL.
[2024-01-31] VITALS (19 sets, daily range): BP systolic 88–153; BP diastolic 37–114
--- NOTE | 2024-01-31 00:02 | NUR ---
PT SON "CAMILA CHO [phone]" CALLED, INQUIRING OF MOM'S CONDITION. STATES THAT HIS SISTER YOANNA CALLED "HYSTERICAL SAYING MOM IS NON RESPONSIVE, AND WILL NOT MAKE IT OUT OF THE HOSPITAL". REASSURED SON. SUGGESTED SON CALL IN THE MORNING FOR UPDATES.
--- NOTE | 2024-01-31 01:01 | NUR ---
ROUNDED ON pt, pt RESTING IN BED, ON LEFT SIDE. RR EVEN AND UNLABORED. CPOX IN PLACE. SPO2 94%, NATHANAEL REMAINS IN PLACE. BED ALARM ON AND CALL LIGHT IN REACH.
--- NOTE | 2024-01-31 01:02 | NUR ---
LINE ANALYST TOOK MANUAL BLOOD PRESSURE 88/54
--- NOTE | 2024-01-31 03:00 | NUR ---
in room to round on pt, pt awoke to voice. incontinent of both stool and urine. alvaro care done, barrier cream to buttocks, remains red and blanchable. reddness to groin folds and under breats. reddness along with a few scratches near belly button, skin dry in appearance. pt boosted in bed, bed alarm resumed. swallow study complete and pt passed, water and soda provided per pt request. cpox in place, pt remains on 2lnc. no further needs, call light in reach.
--- NOTE | 2024-01-31 03:02 | NUR ---
PT AWAKE, DRINKING WATER, OFFERED SOFT DRINK, ACCEPTED. ANSWERING QUESTIONS. ASKED PT IF HER SON CAN BE UPDATED IN THE AM. SHE STATED YES, MY KIDS CAN KNOW. PRIMARY RN CLARI IN ROOM A WITNESS.
[2024-01-31 05:15] LABS: BASOPHILS 0.6 % (0-2); EOSINOPHILS 0.3 % (0-6); HEMATOCRIT 43.2 % (35.0-50.0); HEMOGLOBIN 13.9 g/dL (12.0-18.0); LYMPHOCYTES 6.7 % (24-44); MCH 32.5 (27-36); MCHC 32.1 g/dl (30-36); MCV 101.2 fl (81-99); MONOCYTES 7.2 % (0-12); NEUTROPHILS 85.2 % (39-80); PLATELET COUNT 181 K/uL (140-440); RBC 4.27 M/ul (4.3-5.7); RDW 18.2 (10.5-15.0)
--- NOTE | 2024-01-31 05:25 | NUR ---
ROUNDED ON pt, pt RESTING IN BED ON RIGHT SIDE. ON 2LNC, SPO2 90%, HR 80'S. RR EVEN AND UNLABORED, NO DISTRESS NOTED. BED ALARM ON AND CALL LIGHT IN REACH, PUREWICK IN PLACE.
[2024-01-31 05:31] LABS: ALBUMIN 2.3 g/dL (3.4-5.0); ALBUMIN/GLOBULIN RATIO 0.66 (1.1-2.4); ANION GAP 15.7 (7-21); BILIRUBIN, TOTAL 1.2 ng/dL (0.2-1.0); BUN/CREATININE RATIO 7.52 (6.0-28.6); CALCIUM 8.2 mg/dL (8.5-10.1); CREATININE, SERUM 4.52 mg/dL (0.55-1.02); MAGNESIUM 1.9 mg/dL (1.8-2.4); POTASSIUM 3.7 mmol/L (3.5-5.1); PROTEIN, TOTAL 5.8 g/dL (6.4-8.2)
[2024-01-31 05:41] LABS: DIGOXIN 4.6 ng/dL (0.9-2.0)
--- NOTE | 2024-01-31 06:04 | NUR ---
MONKEY BREEDER OBTAINED VITALS. B/P IS 94/37. PRIMARY RN NOTIFED CLARI NOTIFED. PT STATES NO NEEDS AND IS BACK ASLEEP. CALL LIGHT WITHIN REACH AND BED ALARM ON.
--- NOTE | 2024-01-31 07:01 | NUR ---
PRIMARY RN AND DIRECTOR PHONE BOOSTED PT IN BED AND RECHECKED B/P. PT STATES NO NEEDS AT THIS TIME. CALL LIGHT WITHIN REACH AND BED ALARM ON.
--- NOTE | 2024-01-31 07:40 | NUR ---
REPORT RECEIVED FROM CLAIM PROCESSING SPECIALIST RN. PATIENT RESTING IN BED. DENEIS ANY NEEDS AT THIS TIME. XRAY ON UNIT TO TRANSPORT PAITENT TO IMAGING FOR XRAY.
--- NOTE | 2024-01-31 09:00 | NUR ---
PATIENT RESTING IN BED. MD IN ROOM WITH PATIENT.
[2024-01-31] MEDS ORDERED: SODIUM CHLORIDE 0.9% IV ONE (09:15)
[2024-01-31] MEDS ORDERED: DIGOXIN IMMUNE FAB IV ONE (09:15)
--- NOTE | 2024-01-31 09:15 | NUR ---
ALERT AND ORIENTED X 2. PATIENT DENIES ANY PAIN AT THIS TIME. LUNGS DIM THROUGHOUT NOTED FINE CRACKLES. TELE IN PLACE BIGEMINY RYTHYM NOTED. DENIES ANY CHEST PAIN OR DISCOMFORT AT THIS TIME. NOTED TACHYPENIA AT TIMES. PATIENT BP SOFT. SKIN DRY WITH NOTED REDNESS ON BONY AREAS. REDNESS TO BOTTOM BLANCHABLE BARIER CREAM IN BLACE. NO OPEN AREAS TO SKIN NOTED. PEDAL PULSES FAINT AND THREADY. IV SITE PATENT.
--- NOTE | 2024-01-31 09:25 | NUR ---
RT IN ROOM TO DO EKG.
--- NOTE | 2024-01-31 09:29 | NUR ---
DISCUSSED WITH CHARGE NURSE AND MD PATIENT TRANSFER TO CCU.
[2024-01-31] MEDS ORDERED: LACTATED RINGER'S 1,000 ML IV SCH (09:45)
--- NOTE | 2024-01-31 09:55 | NUR ---
pt trsf from medsurg to rm 128 via bed with variable hr, pt declines bs check for her type 2 diabetes. bailer tenders supervisor attempt iv -unsuccessful - credit representative in to attempt us iv. - digibind started at ccu. pt on left side- denies pain or needs.
--- NOTE | 2024-01-31 09:56 | NUR ---
REPORT GIVEN TO CCU RN. PATIENT TRANSFERED VIA BED.
[2024-01-31] MEDS ORDERED: DEXTROSE 50% 50 ML SYR IV PRN ×2 (10:30)
[2024-01-31] MEDS ORDERED: DEXTROSE 5% 1,000 ML IV PRN (10:30)
[2024-01-31] MEDS ORDERED: IBLOOD GLUCOSE TEST STRIP 1 EA TEST XX PRN (10:30)
[2024-01-31] MEDS ORDERED: GLUCAGON,HUMAN RECOMBINANT 1 MG/ML VIAL SUB-Q PRN (10:30)
--- NOTE | 2024-01-31 10:34 | NUR ---
UR CLINICAL REVIEW: 2MN ALFONSO- MEETS INPT FOR CHF AND PNEUMONIA MEDICARE INPT 01/30/24 @ 2116 ORDER MATCHES REG NO AUTH REQUIRED PER MEDICARE RULES DC PLAN PENDING. POTENTIAL TRANSFER FOR CARDIOLOGY FOR 3RD DEGREE HEART BLOCK.
--- NOTE | 2024-01-31 10:43 | NUR ---
here on floor review pt vitals and assess. digibind complte. pt denies pain, fluids lr at 25o ml/hr to new us iv site. wnl. pt bs 64 rm assisted pt to drink ensure shake with protein.
[2024-01-31] MEDS ORDERED: CEFEPIME HCL/D5W 1 GM/100 ML PIGGYBACK IV SCH (11:30)
[2024-01-31] MEDS ORDERED: PHARMACY RENAL DOSE ADJUSTMENT 1 DOSE MISC PO SCH (12:00)
--- NOTE | 2024-01-31 12:26 | NUR ---
call to dr to advise of low bp, and rhythm. low urine output - order for bolus now 999 - remaining lr and resume rate of 250. no reza and bladderscan as needed. pt comfortable and repositioned. visible to rn at desk with call light in reach.
--- NOTE | 2024-01-31 12:30 | NUR ---
pt up to bsc with max [employer] of liquid brown stool - no urine. pt skin on back side red but intact with old powder caked in folds - cleaned skin, and barrier cream applied - new attends and linens and back to bed, max assist. pt daughter came at this time and spoke with dtg. pt awake talking with daughter about care plan at this time - denies needs.
[2024-01-31] MEDS ORDERED: ZYRTEC10 MG PO (12:43)
[2024-01-31] MEDS ORDERED: VOLTAREN ARTHRI20 GM TOP (12:45)
[2024-01-31] MEDS ORDERED: FLONASE ALLERG9.9 ML NAS (12:47)
[2024-01-31] MEDS ORDERED: XALATAN2.5 ML OU (12:48)
[2024-01-31] MEDS ORDERED: ALA-CORT28.4 GM TOP (12:48)
[2024-01-31] MEDS ORDERED: IMODIUM A-D2 M2 PO (12:49)
[2024-01-31] MEDS ORDERED: SYNTHROID50 MCG PO (12:49)
[2024-01-31] MEDS ORDERED: MELATONIN5 M2 PO (12:50)
[2024-01-31] MEDS ORDERED: PROTONIX40 MG PO (12:52)
[2024-01-31] MEDS ORDERED: NYSTOP60 GM TOP (12:52)
[2024-01-31] MEDS ORDERED: MIRALAX17 GM PO (12:53)
[2024-01-31] MEDS ORDERED: VESICARE10 MG PO (12:54)
[2024-01-31] MEDS ORDERED: TRIAMCINOLONE A15 G1 TOP (12:55)
[2024-01-31] MEDS ORDERED: TRIAMCINOLONE A60 M1 TOP (12:57)
[2024-01-31] MEDS ORDERED: LO-DOSE ASPIRIN81 MG PO (12:58)
--- NOTE | 2024-01-31 12:58 | NUR ---
MED REC COMPLETE
--- NOTE | 2024-01-31 13:36 | NUR ---
dc assortment planner called by this rn - justino in to see pt and family at pt bedside.
--- NOTE | 2024-01-31 14:00 | NUR ---
Lengthy 1.5 hour conversation with pt and daughter. Then met with Dr. Liriano as pt now wanting to change her mind and not be a full code. Pt would like to return to [facility] as she would like to Vape her THC. Daughter is very emotional, crying, discussing her life growing up and moms life. Met with Dr. Liriano and daughter as she did not want us to discuss dying in front of the pt. 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 She made her promise she would not do anything to extend her life. Pts directive shows pt is a DNR/DNI. I was able to contact [facility] where she lives. They are willing to take her back today. I contact Hospice and they do not have any openings until Saturday. plans on comfort care through the weekend. I attempted to discuss with daughter, pt will need to return to [facility] at the beginning of next week. She states this isn't possible as the room smell so strong of urine. She has asthma and cannot tolerate. Discuss medicare does not take this into consideration. I will fu Saturday. Chart faxed to Hospice at [facility] with a referral at pts request.
--- NOTE | 2024-01-31 14:08 | NUR ---
and heriberto habitat conservation planner in room with pt and family.
[2024-01-31] MEDS ORDERED: ondansetron HCL 4 MG/2 ML VIAL IV PRN (14:45)
[2024-01-31] MEDS ORDERED: ARTIFICIAL TEARS 15 ML BTL OU PRN (14:45)
[2024-01-31] MEDS ORDERED: LORazepam 2 MG/ML VIAL IV PRN (14:45)
[2024-01-31] MEDS ORDERED: ATROPINE SULFATE 1% OPTH DROPS SL PRN (14:45)
[2024-01-31] MEDS ORDERED: MORPHINE SULFATE 10 MG/ML VIAL IV PRN (14:45)
[2024-01-31] MEDS ORDERED: MORPHINE SULFATE 4 MG/ML VIAL IV PRN ×2 (14:45)
--- NOTE | 2024-01-31 15:17 | NUR ---
pt status changed to comfort care, pt moved to room 119 after being up to bsc to have bm, loose stool inc. in bed, barrier cream to bottom, family has left to get lunch - auger press operator liudmila called and here to see family. pt max assist trsf back to bed and trsf via bed to room 119 with all belongings and chart. all monitors removed and dr aware pt low output of urine.
--- NOTE | 2024-01-31 15:30 | NUR ---
REPORT RECEIVED FROM CCU RN. PATIENT TRANSFERED BACK TO MED/SURG FROM CCU. PATIENT RESTING IN BED. DENEIS ANY NEEDS AT THIS TIME. DENIES PAIN. CALL LIGHT WITHIN REACH.
--- NOTE | 2024-01-31 16:25 | NUR ---
Received call from CCU nurse of a patient that appears to be comfort care. Instructed not to interact in a clergy function with the patient, as the patient is not requesting spiritual care, but that the family would like support. Upon arrival, family stepped out but returned at 3:54pm after the patient had been moved to [facility]. I spoke to the daughter of the patient who has concerns about her mothers spiritual well being and asked prayers for her mothers receptivity. Daughter was quite distraught. I had prayer with daughter and affirmed my availability over the weekend.
--- NOTE | 2024-01-31 16:40 | NUR ---
PATIENT RESTING IN BED WITH FMAILY AT BEDSIDE. DENIES ANY NEEDS AT THIS TIME. CALL LIGHT WITHIN REACH.
--- NOTE | 2024-01-31 17:30 | NUR ---
PATIENT ASSISTED TO [facility] WITH 2 PA MAX ASSIST. BM NOTED. BUTTOCKS REMAINS RED, NEW BARIER CREAM APPLIED. PATIENT REQUESTING TO SIT IN RECLINER. USE OF SERA STEADY AND 2 PA ASSIST TO TRNASFER PATIENT TO SERA STEADY. PATIENT DID NOT TOLLERATE TRANSFER WELL TO RECLINER. NOTED INCREASED WEAKNESS. PATIENT RESTING IN RECLINER WITH FAMILY AT BEDSIDE. CALL LIGHT WITHIN REACH.
--- NOTE | 2024-01-31 18:25 | NUR ---
PATIENT EATING DINNER WITH FAMILY ASSISTANCE. NO NEEDS AT THIS TIME.
--- NOTE | 2024-01-31 19:26 | NUR ---
MD CALLED TO MAKE SURE PATIENT ADMISSION STATUS WAS CHANGED TO COMFORT CARE/MED SURG PER HIS NOTE. MD ACKNOWLEDGED AND WILL UPDATE ORDERS. PT FAMILY PRESENT THIS EVENING IN THE ROOM. POLST FORM IS ON PATIENT CHART.
--- NOTE | 2024-01-31 19:40 | NUR ---
RECEIVED REPORT FROM KARY HAMILTON. SKIN CHECK COMPLETED W/ ALFONSO. PUREWICK CHANGED. FAMILY AT BEDSIDE.
--- NOTE | 2024-01-31 20:24 | NUR ---
CONFIRMED PLAN OF CARE WITH DR MAZARIEGOS, pt IS COMFORT CARE AND NO NEED TO COLLECT VS PER MD-MD TO PUT IN NEW ORDERS.
--- NOTE | 2024-01-31 20:34 | NUR ---
call answered from tomasz at [facility] and asking for pt update, primary rn in a pt room. tomasz left call back #[phone]. primary rn audrey made aware and updated. pt's daughter rdea bahena'd staff with giving pt update to staff at [facility].
--- NOTE | 2024-01-31 20:42 | NUR ---
AUTOMATIC GLOVE FORMER OBTAINED VITALS ABD I&O. PT STATES NO NEEDS AT THIS TIME. CALL LIGHT WITHIN REACH AND DAUGHTER IN ROOM.
--- NOTE | 2024-01-31 22:34 | NUR ---
PT RESTING COMFORTABLY IN BED ON LEFT SIDE. DAUGHTER AT BEDSIDE. PT LETHARGIC, MINIMALLY VERBAL. DENIES PAIN. ORIENTED X SELF AND DTR. LS DIM T/O, 3L O2 N/C IN PLACE. HRIR. BT HYPO x 4. PT HAS PUREWICK IN PLACE-UO JENNIE AND MINIMAL. MINDA AREA AND BUTTOCKS W/ BLANCHABLE REDNESS, BARRIER CREAM APPLIED BY PREVIOUS RN AT CHANGE OF SHIFT. LFA AND RFA SL WNL. CALL LIGHT WITHIN REACH. DENIES ANY FURTHER NEEDS.
--- NOTE | 2024-01-31 22:48 | NUR ---
SILVER COLORED OVAL/OBLONG SHAPED RING WITH BRONZE COLORED CENTER HANDED TO THIS RN IN pt LABELED CUP BY CIDER MAKER MAYANK. 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 RING ALREADY ATTACHED TO BLACK STRING. RING PLACED AROUND NECK PER pt REQUEST AND DAUGHTER YOANNA ALSO MADE AWARE OF FINDING OF pt RING AND VERY APPRECIATIVE. pt STATES, "THANK YOU VERY MUCH". WARM BLANKET ALSO PROVIDED PER pt REQUEST, NO ADDITIONAL NEEDS OR CONCERNS VERBALIZED. CALL LIGHT IN REACH.
--- NOTE | 2024-02-01 00:15 | NUR ---
PT SLEEPING ON RIGHT SIDE, PT'S DTR REPORTS PT IS REPOSITIONING SELF INTERMITTENTLY. APPEARS COMFORTABLE. PT'S DTR TO REMAIN AT BEDSIDE THROUGHOUT NOC.
--- NOTE | 2024-02-01 03:32 | NUR ---
PT SOUND ASLEEP. DTR REMAINS AT BEDSIDE. COMFORT MEASURES CONTINUE.
--- NOTE | 2024-02-01 06:13 | NUR ---
COOKING TEACHER AND PRIMARY RN CHNAGED PT OSCAR, BRIEF AND CHUCKS PAD. OSCAR CANNISTER EMPITED. PT STATES NO NEEDS AT THIS TIME. CALL LIGHT WITHIN REACH.
--- NOTE | 2024-02-01 06:17 | NUR ---
PT DROWSY, MINIMALLY VERBAL. FOLLOWS COMMANDS. DENIES PAIN. COCCYX AND MINDA AREA REDDENED, TENDER. MINDA AREA CLEANSED AND BARRIER CREAM REFRESHED. DTR ASLEEP AT BEDSIDE.
--- NOTE | 2024-02-01 07:30 | NUR ---
REPORT REC'D FROM KARY VEGA. PT RESTING COMFORTABLY IN BED, DTR AT BEDSIDE.
--- NOTE | 2024-02-01 08:30 | NUR ---
NURSES AND I GAVE PATIENT A BED BATH. AND PUT LOTION ALL OVER HER BODY. CHANGED HER TAPED ATTEND AND PUREWICK. HER DAUGHTER THIS MORNING WASHED HER FACE.
[2024-02-01] MEDS ORDERED: ENOXAPARIN SODIUM 40 MG/0.4 ML SYR SUB-Q SCH (09:00)
[2024-02-01] MEDS ORDERED: ENOXAPARIN SODIUM 30 MG/0.3 ML SYR SUB-Q SCH (09:00)
--- NOTE | 2024-02-01 09:18 | NUR ---
PT AWAKE AND SITTING UP IN BED, FACE TIMING FAMILY.
[2024-02-01 10:14] VITALS: BP 91/51
[2024-02-01 11:00] VITALS: BP 91/51
--- NOTE | 2024-02-01 11:00 | NUR ---
MEWS COMPLETED, NO RAPID RESPONSE CALLED R/T PATIENT IS ON COMFORT CARE
--- NOTE | 2024-02-01 11:15 | NUR ---
PT REPORTS ITCHING. NOTIFIED, ORDERS REC'D
[2024-02-01] MEDS ORDERED: hydrOXYzine pamoate 25 MG CAP PO PRN (11:30)
--- NOTE | 2024-02-01 13:47 | NUR ---
PT SITTING UP ON SIDE OF BED VISITING WITH FAMILY. NO C/O AT THIS TIME.
--- NOTE | 2024-02-01 14:45 | NUR ---
PT SITTING ON SIDE OF BED PLAYING STEPHANIE WITH FAMILY. NO NEEDS REPORTED.
--- NOTE | 2024-02-01 15:51 | EKG ---
[facility] [address] [facility] [place], [place] [address] Signed Complete heart block Septal infarct (cited on or before 25-FEB-2023) Abnormal ECG When compared with ECG of 18-DEC-2023 10:50, Complete heart block now present Confirmed by Randall Liriano MD ([id number]) on 02/01/2024 3:51:26 PM Electronically Signed By: RANDALL LIRIANO MD 02/01/24 1551 PATIENT NAME: BERYL MANCERA I Electrocardiogram DATE OF : 48 PHYSICIAN: RANDALL LIRIANO MD REPORT #: [id number] REPORT IS CONFIDENTIAL AND NOT TO BE RELEASED WITHOUT AUTHORIZATION
--- NOTE | 2024-02-01 15:53 | EKG ---
[facility] [address] [facility] [place], [place] [address] Signed Complete heart block Abnormal ECG When compared with ECG of 31-JAN-2024 09:28, (Unconfirmed) No significant change was found Confirmed by Randall Liriano MD ([id number]) on 02/01/2024 3:53:24 PM Electronically Signed By: RANDALL LIRIANO MD 02/01/24 1553 PATIENT NAME: BERYL MANCERA I Electrocardiogram DATE OF : 48 PHYSICIAN: RANDALL LIRIANO MD REPORT #: [id number] REPORT IS CONFIDENTIAL AND NOT TO BE RELEASED WITHOUT AUTHORIZATION
--- NOTE | 2024-02-01 15:56 | EKG ---
[facility] [address] [place] [address] Signed Sinus bradycardia with 1st degree AV block with frequent premature ventricular complexes in a pattern of bigeminy Inferior infarct , age undetermined Abnormal ECG When compared with ECG of 31-JAN-2024 11:22, (Unconfirmed) sinus bradycardia with 1st degree AV block with frequent premature ventricular complexes in a pattern of bigeminy has replaced complete heart block Confirmed by Randall Liriano MD ([id number]) on 02/01/2024 3:56:13 PM Electronically Signed By: RANDALL LIRIANO MD 02/01/24 1556 PATIENT NAME: BERYL MANCERA I Electrocardiogram DATE OF : 48 PHYSICIAN: RANDALL LIRIANO MD REPORT #: [id number] REPORT IS CONFIDENTIAL AND NOT TO BE RELEASED WITHOUT AUTHORIZATION
--- NOTE | 2024-02-01 16:30 | NUR ---
PT RESTING IN BED QUIETLY. FAMILY AT BEDSIDE. NO NEEDS REPORTED
--- NOTE | 2024-02-01 18:38 | NUR ---
PT RESTING T/O SHIFT WITH FAMILY AT BEDSIDE. NO URINE OP NOTED. DIAPER REMAINS DRY. FAMILY BROUGHT POWDER AT BEDSIDE FOR GROIN,BREAST AND MINDA AREA. NO ACUTE DISTRESS NOTED.
--- NOTE | 2024-02-01 18:42 | NUR ---
WHEN I WENT IN TO CHECK ON HER AROUND LUNCH TIME. GOT HER SOME FRESH ICE WATER AND A LEMON AND [place] SODA. SHE WAS PLAYING STEPHANIE WITH HER GRANDSON.
--- NOTE | 2024-02-01 19:38 | NUR ---
RECEIVED REPORT FROM AL RN'S. FAMILY IN VISITING W/ PT. DENIES NEEDS.
--- NOTE | 2024-02-01 20:18 | NUR ---
Assisted RN in repositioning Pt. Provided QuietPac. Granddaughter and friends in room. No other needs expressed by Pt. Call light left in reach. Provided warm blanket.
--- NOTE | 2024-02-01 21:30 | NUR ---
PT RESTING IN BED, APPEARS ASLEEP. FAMILY AT BEDSIDE REPORTS PT ATE "GUMMY EDIBLES" RECENTLY. PT IS ON COMFORT CARE. AWAKENS W/ RN ASESSMENT. DENIES PAIN OR DISCOMFORT. PT IS ABLE TO REPOSITION SELF IN BED NEEDED. LS DIM, SHALLOW. HRIR. BT HYPO. PUREWICK DC'D AT CHANGE OF SHIFT R/T LOW TO NO UO. MINDA AREA/COCCYX AND AND FOLDS EXCORIATED, RED AND PAINFUL. AREAS LIGHTLY CLEANSED AND POWDER FROM HOME APPLIED. LAC IV SL'D, WNL. FAMILY TO REMAIN AT BEDSIDE OVERNIGHT. CALL LIGHT WITHIN REACH.
--- NOTE | 2024-02-01 22:39 | NUR ---
PT SLEEPING SOUNDLY ON RIGHT SIDE. APPEARS COMFORTABLE. FAMILY ASLEEP AT BEDSIDE.
--- NOTE | 2024-02-02 00:19 | NUR ---
bed alarm going off, pt found awake in bed with ble hanging over edge of bed. pt drowsy and states, "i wanna get up". pt reoriented to place and time. boosted in bed with hob elevated to stimulate sitting up in chair, pt then asking for icecream, provided. family remain in room, bed alarm resumed and pt awake and watching tv. no further needs or concerns, call light in reach.
--- NOTE | 2024-02-02 01:14 | NUR ---
PT AWAKE, SITTING UPRIGHT IN BED WATCHING VIDEOS ON PHONE W/ FAMILY. PT DENIES PAIN OR DISCOMFORT. ATE 50% OF ORANGE SORBET. SIPPING ON MTN DEW FROM HOME. DENIES ANY FURTHER NEEDS.
--- NOTE | 2024-02-02 04:06 | NUR ---
PT AND FAMILY MEMBER SLEEPING SOUNDLY. PT APPEARS COMFORTABLE. CALL LIGHT WITHIN REACH.
--- NOTE | 2024-02-02 06:50 | NUR ---
PT AWAKE, REPOSITIONED TO SLIGHTLY LEFT LYING. PT GIVEN SIPS OF HER MTN DEW PER REQUEST. BED ALARM & FALL MATS IN PLACE FOR SAFETY.
--- NOTE | 2024-02-02 07:30 | NUR ---
REPORT RECEIVED FROM MEDICAL SURGICAL TECH RN. PATIENT RESITNG IN BED WITH EYES CLOSED RESPIRATIONS EVEN AND UNLABORED. RESPIRATIONS NOTED TO BE SHALLOW AT TIMES. PATIENT FAMILY AT BEDSIDE. BED ALARM IN PLACE. CALL LIGHT WITHIN REACH.
--- NOTE | 2024-02-02 08:08 | NUR ---
patient in bed, family in room. no further needs at this time. call light within reach.
--- NOTE | 2024-02-02 09:00 | NUR ---
PATIENT RESTING IN BED LAYING ON HER BACK WITH EYES CLOSED. RESPIRATIONS EVEN AND UNLABORED. FAMILY AT BEDSIDE. DISCUSSED WITH PATIENT'S DAUGHTER HOW HER NIGHT WENT. FAMILY AND PATIENT WITH NO NEEDS AT THIS TIME. CALL LIGHT WIHTIN REACH. BED ALARM ON.
--- NOTE | 2024-02-02 10:00 | NUR ---
PATIENT READJUSTED IN BED, PT HAS NO VOID IN ATTENDS OR BM. PT HAS NOT CONSUMED ANYTHING FOOD OR OTHERWISE. PT HAS NO NEEDS THAT HAVE BEEN EXPRESSED BY THE PT OR THE PT'S FAMILY. CALL LIGHT WITHIN REACH.
--- NOTE | 2024-02-02 10:20 | NUR ---
NURSE IN ROOM TO COMPLETE ASSESSMENT. PATIENT APPEARS TO BE RESTING IN BED WITH NO DISCOMFORT AT THIS TIME. PATIENT COMMUNICATES NEEDS EFFECTIVLY HOWEVER SHE IS SLOW TO RESPOND IN CONVERSATION. DENIES NEEDS FOR PAIN MEDICATIONS AT THIS TIME. LUNG SOUNDS DIMINISHED THOUGHOUT. NO NOTED MODELING IN EXTERMITIES. SKIN REMAINS INTACT NO NEW REDNESS NOTED. FAMILY AT BEDSIDE WITH NO CONCERNS OR NEEDS AT THIS TIME. CALL LIGHT WITHIN REACH.
--- NOTE | 2024-02-02 11:45 | NUR ---
IN TO CHECK ON PATIENT AND FAMILY. NO NEEDS AT THIS TIME.
--- NOTE | 2024-02-02 13:41 | NUR ---
patient lying in bed, no intake, no void, pt has no requests at this time and was able to shake head no when asked if they needed anything. family in room. call light within reach.
--- NOTE | 2024-02-02 15:19 | NUR ---
IN TO ROUND ON PATIENT. SHE IS AWAKE SITTING UP IN BED. APPEARS TO BE COMFORTABLE. FAMILY AND FIRENDS AT BEDSIDE. PATIENT DRIFTS IN AND OUT OF SLEEP. FAMILY AND PATIENT DENIES ANY NEEDS AT THIS TIME. CALL LIGHT SAURABH CLINTON.
--- NOTE | 2024-02-02 17:07 | NUR ---
IV SITE LEAKING. UNABLE TO GIVE PRN PAIN MEDICATIONS. DISCUSSED WITH . NEW ORDERS SEE MAY.
[2024-02-02] MEDS ORDERED: MORPHINE SULFATE 20 MG/ML SYR SL PRN (17:15)
--- NOTE | 2024-02-02 19:35 | NUR ---
REPORT RECEIVED FROM KARY HAMILTON. pt RESTING IN BED AWAKE. DENIES PAIN. FAMILY AT BEDSIDE. pt WITH RELAXED DISPOSITION, 2L OXYGEN BY NC IN PLACE. NO DISTRESS NOTED.
--- NOTE | 2024-02-02 20:50 | NUR ---
ROUNDED ON PT. VISITED WITH DAUGHTER. PT AWAKE, BUT DROWSY. NO NEEDS.
--- NOTE | 2024-02-02 21:15 | NUR ---
DAUGHTER NOTIFIES STAFF OF pt IN PAIN. pt HOLDING LEFT SIDE. SL MORPHINE ADMINISTERED. DRINKS OF MOUNTAIN DEW PROVIDED PER pt REQUEST. pt INCONTINENT OF URINE. ATTENDS CHANGED. BARRIER POWDER APPLIED PER FAMILY REQUEST. pt REPOSITIONED TO LEFT SIDE PER REQUEST. 2L OXYGEN BY NC IN PLACE. FAMILY DENIES VS. CALL LIGHT IN REACH.
--- NOTE | 2024-02-02 23:55 | NUR ---
CHECKED ON pt. RESTING IN BED WITH EYES CLOSED, RR 19. OXYGEN REAPPLIED TO NARES. pt DOES NOT OPEN EYES. NO DISTRESS NOTED. DAUGHTER SLEEPING ON COUCH.
--- NOTE | 2024-02-03 02:13 | NUR ---
CHECKED ON pt. RESTING IN BED WITH EYES CLOSED, SUPINE WITH LEFT LEG BENT. BREATHING EQUAL AND UNLABORED. 2L OXYGEN BY NC IN PLACE. NO DISTRESS NOTED.
--- NOTE | 2024-02-03 05:44 | NUR ---
pt SLEEPING, AWAKENS EASILY WHEN RN ENTERS ROOM. INCONTINENT OF URINE, ATTENDS CHANGED. BARRIER POWDER APPLIED PER FAMILY REQUEST. REPOSITIONED, FLOATING WITH PILLOWS UNDER HIPS. pt DENIES ANY PAIN. DENIES NEEDS. CLOSING EYES. CALL LIGHT IN REACH. DAUGHTER IN ROOM AWAKE ON COUCH.
--- NOTE | 2024-02-03 07:40 | NUR ---
PT RESTING SOUNDLY AT TIME OF SHIFT REPORT. FAMILY PRESENT IN ROOM, LEFT UNDISTURBED. CALL LIGHT AND NEEDED ITEMS IN REACH
--- NOTE | 2024-02-03 08:00 | NUR ---
Called and spoke with Maay at [facility]. They would like to admit this pt tomorrow morning and will deliver DME to [facility]. I will speak with the family.
--- NOTE | 2024-02-03 08:15 | NUR ---
Called and spoke with Maya at [facility]osp[facility]. They can admit this pt tomorrow morning and would prefer earlier. Will fu with Dave this am.
--- NOTE | 2024-02-03 08:45 | NUR ---
In and spoke with daughter and she states they cannot return to [facility] as the room smells like urine and has cat hair. Her son is taking the cat. She states the room is very foul smelling and a friend from [facility] brought her the Karen number and they are filing a complaint. I asked if they are will to move rooms if I call the firm administrator and she states yes. I called and spoke with their firm administrator and he stated they have already moved her downstairs to the main floor and they are willing to accept her as a hospice pt tomorrow. I returned to speak with daughter and granddaughter. They are attempting to rent an Air B[employer]. We discussed if this is the best plan. Daughter wouldlike to have her mom close and have a room for herself and daughter. She states they have discussed with the owner spa director and they are alright with this. They are attempting to confirm this plan and will let me know shortly. I told them I need to know soon as hospice is ordering the DME and they will need to know where to send. I left my number and they will call as soon as this plan is confirmed. I again attempted to discuss return to [facility] at least for this week as its a holiday week. If this plan does not adamson out, it is very unlikely pt will be able to return to [facility]. Daughter wants pt to go to [facility].
[2024-02-03] MEDS ORDERED: SCOPOLAMINE 1 MG/3 DAYS PATCH 1 EACH TDSY TD SCH (09:00)
--- NOTE | 2024-02-03 09:03 | NUR ---
PT CONTINUES SLEEPING SOUNDLY AT THIS TIME, FAMILY REMAIN IN ROOM AWAKE.
[2024-02-03] MEDS ORDERED: CEFDINIR 300 MG CAP PO SCH (09:17)
--- NOTE | 2024-02-03 09:47 | NUR ---
PT AWAKENED FOR ABX SHE EATS ALL OF HER APPLE SAUCE AGREES SHE IS COMFORTABLE RETURNS TO RESTING EYES CLOSED. DAUGHTER REMAINS PRESENT IN THE ROOM
--- NOTE | 2024-02-03 11:15 | NUR ---
PT RESTING SOUNDLY FAMILY DENY NEED
--- NOTE | 2024-02-03 11:42 | NUR ---
Patient was awake but slow to respond. They reported feeling itchy on their back. Lotion was applied. They refused breakfast but agreed to try to eat lunch when it was time.
--- NOTE | 2024-02-03 11:59 | NUR ---
PT DAUGHTER DISCUSSING DC ARRANGEMENTS WITH DC ASL INTERPRETER QUESTIONS ANSWERED ARRANGEMENTS BEING MADE
--- NOTE | 2024-02-03 12:30 | NUR ---
Spoke with daughter. They are still working on arrangements and will let me know the address of where the DME needs to be delivered.
--- NOTE | 2024-02-03 12:54 | NUR ---
Patient was repositioned. Both hips floated. Patient appeared to be in pain, KARY Del Castillo was informed. Instructed to let her know before next repositioning to give her pain meds.
--- NOTE | 2024-02-03 12:56 | NUR ---
GRANDDAUGHTER AT BEDSIDE PT RESTING EYES CLOSED. PT OPENS EYES TO VOICE, ENCOURAGED HER TO AWAKEN FOR MEAL, PT CLOSES HER EYES AGAIN. BREATHING EVEN AND UNLABORED APPPEARS RESTFUL
--- NOTE | 2024-02-03 14:01 | NUR ---
VISITED DURING SPIRITUAL CARE ROUNDS. PT APPEARED TO BE SLEEPING. DID NOT DISTURB. PROVIDED PRAYER.
--- NOTE | 2024-02-03 14:24 | NUR ---
PT RESTING WITH GRANDDAUGHTER IN THE ROOM. PT AGREES SHE IS COMFORTABLE DENIES NEED OF ANYTHING AT THIS TIME. GRANDDAUGHTER DENIES CONCERNS OR NEEDS WELL
--- NOTE | 2024-02-03 15:37 | NUR ---
CONFIRMED WITH PATIENT DAUGHTER YONANA, HOSPICE ADDRESS [address] SPOKE WITH TORRES AT [facility], THEY WOULD LIKE THE PATIENT TO DISCHARGE 02/04/24 @ 1015. WILL UPDATE MD AND STAFF.
--- NOTE | 2024-02-03 16:09 | NUR ---
PT IS WIDE AWAKE AT THIS TIME AGREES SHE IS COMFORTABLE. STATES IT HURTS HER SIDE WHEN SHE IS MOVED BUT SHE IS OTHERWISE COMFORTABLE. ASKED IF SHE IS HUNGRY PT REPLIES "A LITTLE" AGREES TO TRY SOME PUDDING. STAFF AT BEDSIDE FEEDING HER NOW.
--- NOTE | 2024-02-03 16:19 | NUR ---
PT DOES WELL EATING PUDDING NO COUGHING OR EXPRESSION OF DISCOMFORT. ASKED AGAIN ABOUT PAIN AND IF SHE WOULD LIKE TO HAVE SOMETHING PT AGREES SHE WOULD LIKE "JUST A LITTLE" FOR HER KNEES. MEDS ADMINISTERED. PT HAS SIPS OF H20 AND CONTINUES TO REST. REPOSITIOINED
--- NOTE | 2024-02-03 16:42 | NUR ---
Repositioned by RN and INFRASTRUCTURE MANAGER. Awake and talking.
--- NOTE | 2024-02-03 17:24 | NUR ---
Called and left a message for Neelam at [facility] with update pt will be leaving [facility] for an Air B&B with her family for comfort care. Pt. lives at [facility] on [address] [employer].
--- NOTE | 2024-02-03 17:49 | NUR ---
PT DAUGHTER RETURNS AFTER MAKING ARRANGEMENTS FOR TRANSPORT TOMORROW. REPORTED PT ACTIVITIES TO HER AND PROVIDED REQUESTED ITEMS. PERSONAL CARES DISCUSSED ALL QUESTIONS ANDSWERED.
--- NOTE | 2024-02-03 18:19 | NUR ---
PT CONTINUES RESTING EYES CLOSED DAUGHTER REPORTS SHE WAS AWAKE FOR A SHORT TIME EARLIER.
--- NOTE | 2024-02-03 19:11 | NUR ---
BEDSIDE REPORT RECEIVED FROM KARY WORTHY. pt RESTING IN BED WITH EYES CLOSED ON RIGHT SIDE. 2L OXYGEN BY NC IN PLACE. BREATHING EQUAL AND UNLABORED, RR 16. DAUGHTER AT BEDSIDE. NO NEEDS EXPRESSED.
--- NOTE | 2024-02-03 21:15 | NUR ---
pt RESTING IN BED WITH EYES CLOSED, AWAKENS TO VOICE. pt INCONTINENT OF LARGE VOID, ATTENDS AND CHUX CHANGED. BARRIER CREAM AND POWDER APPLIED TO MINDA AREA. PUREWICK PLACED. pt REPOSITIONED WITH PILLOWS UNDER RIGHT HIP. PILLOW BETWEEN LEGS. 2L OXYGEN BY NC IN PLACE. PRN SL MORPHINE ADMINISTERED. PO MEDICATION ADMINISTERED IN PUDDING. RR 12. WARM BLANKET PROVIDED. BED IN LOW POSITION. pt AND FAMILY EXPRESS NO ADDITIONAL NEEDS.
--- NOTE | 2024-02-03 22:45 | NUR ---
CALL LIGHT ANSWERED. FAMILY STATES pt IS RESTLESS, QUESTIONS WHETHER SHE IS IN PAIN. PRN VISTARIL ADMINISTERED AFTER DISCUSSION WITH FAMILY. pt ASSISTED TO REPOSITION FOR COMFORT. ICE WATER REFILLED FOR pt AND FAMILY. pt DRINKS 200 MLS. CALL LIGHT IN REACH.
--- NOTE | 2024-02-03 23:24 | NUR ---
CHECKED ON pt, RESTING IN BED WITH EYES CLOSED. BREATHING UNLABORED. 2L OXYGEN BY NC IN PLACE.
--- NOTE | 2024-02-04 01:00 | NUR ---
CHECKED ON Pt. RESTING IN BED WITH EYES CLOSED. 2L OXYGEN BY NC IN PLACE. NO DISTRESS NOTED.
--- NOTE | 2024-02-04 02:00 | NUR ---
CHECKED ON pt. pt AWAKE, GRIMACING. COMPLAINS OF BACK PAIN. PRN SL MORPHINE ADMINISTERED. pt ASSISTED TO REPOSITION HIGHER IN BED. 2L OXYGEN BY MA PLACE. ASSISTED WITH TV, COUNTRY MUSIC ON TV PER REQUEST. CALL LIGHT IN REACH.
--- NOTE | 2024-02-04 03:11 | NUR ---
pt'S FAMILY CALLS, pt AGITATED, SHIFTING IN BED. FAMILY REQUESTING ADDL MEDICATION FOR pt. PHONE CALL TO MD, NEW ORDERS RECEIVED AND REPEATED BACK TO VERIFY.
[2024-02-04] MEDS ORDERED: MORPHINE SULFATE 20 MG/ML SYR SL PRN (03:30)
[2024-02-04] MEDS ORDERED: MORPHINE SULFATE 20 MG/ML SYR SL ONE (03:30)
[2024-02-04] MEDS ORDERED: LORazepam 1 MG TAB PO PRN (03:30)
--- NOTE | 2024-02-04 03:59 | NUR ---
pt AWAKE RESTING IN BED, OXYGEN OUT OF NARES, PUREWICK DISCONNECTED BY pt. pt CONTINUES TO FIDGET AND SHIFT IN BED. OCCASIOANAL GRIMACE. PO AGITATION AND PAIN MEDICATION ADMINISTERED. pt REPOSITIONED WITH PILLOWS UNDER HIPS. pt STATES "THATS ENOUGH MOVING". PUREWICK CONNECTED TO SUCTION. ATTENDS DRY AT THIS TIME. CALL LIGHT IN REACH. BED IN LOW POSITION.
--- NOTE | 2024-02-04 06:20 | NUR ---
CHECKED ON pt. RESTING IN BED WITH EYES CLOSED, RR 12. 2L OXYGEN BY NC IN PLACE. NO DISTRESS NOTED.
--- NOTE | 2024-02-04 08:15 | NUR ---
Called Maya at Hospice to confirm admit today and plan for 10:45 for transport. Maya confirms this and address for Air B&B was confirmed.
[2024-02-04] MEDS ORDERED: CEFDINIR300 MG PO (09:27)
--- NOTE | 2024-02-04 09:30 | NUR ---
Attempted to call pts daughter, Deisi x3 to confirm the bed has arrived. She did call back and said equipment arrived and they are planning on Hospice at 1045. Daughter was on speaker phone in my office. I asked if she had notified [facility] pt was going to an Air B&B. My coworker stated they had called earlier and she notified them. Deisi then stated she had not notified them and was plannin going there later to discuss. She would like to hold the room until next week as she may take the patient back. I told her I would call [facility] and give them an update. I called and spoke with Matthew and she let me know Deanna, their Rn is there and would like to be on the call. Deanna came on and explained they are all very concerned. Pt has lived with them for many years and daughter has not been involved. They feel the daughter talked her out of having a pacemaker. We discussed I was there on Sat when pt stated she did not want CPR or compressions. The asked her several times if she is ready to and the pt denied. Pt wanted to return to [facility] that day. She did not want to go anywhere for treatment and did not want to be hooked up to tube. Pt wanted to be able to return to [facility] and use her vape pen. I did let them know I had three discussions with the daughter yesterday encouraging her to return to [facility] for the rest of the week. I let her know if she takes Alicia out she may not be able to have her accepted back. They have called [facility], [employer], and an Ombudsman. I let them know I do not have the power to override the family. At this point I was notified by my coworker Ashley from [facility] pts case reviewer was calling. I then spoke with Ashley on speaker. She also has concerns for this pt to go to an Air B&B with her daughter. I asked if they had the power to override the daughter. She does not. I also updated her the pt was glad to see the daughter and in agreement with her during our conversation on Saturday. Ashley and Deanna plan on calling the daughter. Myself and Jass then went to pts room to see if she could speak with us. We could not awaken the pt enough to have a clear conversation. I then called the daughter, Deisi. She now states she plans on the pt returning to [facility]. She was not aware pt could not return. I asked if she did not remember our conversations from yesterday and she states she did not understand. She plans on taking the DME to [facility]. I called [facility] and they will move pts bed to her new room. I called EMS at 1045 and they will transport pt to [facility] for admit to hospice. The hospice nurse is already there. I then called Maya at [facility]. She will call the daughter and ask her to not move the bed and will have the DME company move it tomorrow. Enrique the hospice nurse transfered the 02 concentrator. Pt left at 1120 for [facility] by EMS transport.
--- NOTE | 2024-02-04 10:10 | NUR ---
Abdominal dressing changed due to saturation. Small amount of yellow foaming noted from open midline abdominal incision. New dressing placed. Patient denies nausea and reports tolerable pain at this time. at bedside.
--- NOTE | 2024-02-04 10:20 | NUR ---
Patient in bed, appears comfortable. Patient moans to soft sternal rub. Non admin her po medications due to aspirations concerns. Daughter at bedside, updated her with plan of care. Patient repositioned, alvaro care done.
--- NOTE | 2024-02-04 11:19 | NUR ---
REPORT CALLED TO KARY MOMIN AT [facility].
== END 2024-02-04 11:55 | disposition home or self-care (01) | DRG 951 ==
LOC: ED 19:09 → MS 21:26 → CCU 21:26 → MS 01-31 15:17
PROVIDERS: Internal Medicine; ADMIT Student in an Organized Health Care Education/Training Program; ATTEND Student in an Organized Health Care Education/Training Program
DX: Z51.5 Encounter for palliative care (principal); J18.9 Pneumonia, unspecified organism; N17.9 Acute kidney failure, unspecified; I44.2 Atrioventricular block, complete; J96.11 Chronic respiratory failure with hypoxia; N39.0 Urinary tract infection, site not specified; J44.0 Chronic obstructive pulmonary disease with (acute) lower respiratory infection; R00.1 Bradycardia, unspecified; T46.0X5A Adverse effect of cardiac-stimulant glycosides and drugs of similar action, initial encounter; Z66 Do not resuscitate; I48.91 Unspecified atrial fibrillation; J44.9 Chronic obstructive pulmonary disease, unspecified; Z99.81 Dependence on supplemental oxygen; N18.9 Chronic kidney disease, unspecified; I12.9 Hypertensive chronic kidney disease with stage 1 through stage 4 chronic kidney disease, or unspecified chronic kidney disease; B96.20 Unspecified Escherichia coli [E. coli] as the cause of diseases classified elsewhere; Z90.49 Acquired absence of other specified parts of digestive tract; M19.90 Unspecified osteoarthritis, unspecified site; Z87.891 Personal history of nicotine dependence; Z79.899 Other long term (current) drug therapy
CPT/HCPCS: 36415; 71045; 71046; 80053; 80162; 81001; 83605; 83735; 83880; 84484; 85025; 87040; 87045; 87046; 87077; 87088; 87186; 93005; 93010; 94762; 96374; 99285-25; A9270-GY; J0692; J1162; J2270; J2543; J7050; J7121; Q0177